=== PATIENT | female | born 1965 | race Caucasian/White ===

== ENCOUNTER 2019-05-07 09:25 | Outpatient (CLI) | payer BC, SELFPAY ==
--- NOTE | ~2019-05-07 | XR_ITS ---
EXAMINATION: XR chest 2V DATE: 05/07/2019 09:40 INDICATION: Chronic pain syndrome TECHNIQUE: PA and lateral views of the chest are obtained. COMPARISON: None available FINDINGS: The lungs are free of acute opacities. There is no pleural effusion or pneumothorax. The ca rdiomediastinal silhouette is normal. There are multiple old left-sided rib fractures. IMPRESSION: 1. No acute cardiopulmonary abnormality. Reviewed, dictated and finalized at location B.
--- NOTE | 2019-05-07 09:45 | ECG_ITS ---
Measurements Intervals [place] Rate: 80 P: 79 WV: 134 QRS: 67 QRSD: 96 T: 43 QT: 351 QTc: 406 Interpretive Statements SINUS RHYTHM WITH SINUS ARRHYTHMIA INCOMPLETE RIGHT BUNDLE BRANCH BLOCK BORDERLINE T WAVE ABNORMALITY- INFERIOR LEADS BORDERLINE ECG Electronically Signed On 05-07-2019 9:54:03 CDT by Emmanuel Stern D.O.
== END 2019-05-07 09:26 | disposition home or self-care (01) ==
LOC: ANHIMG 09:29
PROVIDERS: PCP Internal Medicine; Visit Provider Internal Medicine
DX: F33.2 Major depressive disorder, recurrent severe without psychotic features (principal); G89.4 Chronic pain syndrome
CPT/HCPCS: 71046; 93005

== ENCOUNTER 2019-06-28 12:44 | Outpatient (CLI) | payer BC, SELFPAY ==
--- NOTE | ~2019-06-28 | MR_ITS ---
EXAMINATION: MR cervical spine wo/w con EXAM DATE: 06/28/2019 14:06 INDICATION: Cervical radiculopathy. Neck pain down left arm. TECHNIQUE: Multi-sequential, multiplanar MR images of the cervical spine were obtained without contra st. Axial T2, axial T2 MERGE sequence. Sagittal T1, T2, T2 fat saturation images also obtained. Axi al T1 weighted sequence. Patient was then injected with 13 mL Multihance intravenous contrast and re imaged. Postcontrast axial and sagittal T1-weighted fat saturation sequences were obtained. FINDINGS: There is moderate disc disease from C4-C7. The vertebral bodies are aligned in the AP dime nsion. The spinal cord signal intensity and intrinsic morphology is normal. Cervicomedullary junction is normal in appearance. There are no suspicious marrow signal abnormalities. Paraspinal soft tissue is unremarkable. There are no areas of abnormal enhancement on the post contrast images. Spinal cord is being mildly flattened at the C4-5 and 5-6 levels, but no cord edema, no acute cord co mpression. Level by level evaluation: C2-C3: Disc does not extend beyond the endplate margin. Uncovertebral joint arthropathy: None. Facet joint arthropathy: Mild to moderate right, mild left. Neural foraminal stenosis: No stenosis. Central canal stenosis: No stenosis. C3-C4: There is a mild diffuse disc bulge. Uncovertebral joint arthropathy: Mild bilateral. Facet joint arthropathy: Mild to moderate bilateral. Neural foraminal stenosis: Mild right. Central canal stenosis: Mild. C4-C5: There is a mild to moderate diffuse disc bulge asymmetric to the right Uncovertebral joint arthropathy: Moderate to severe right, mild left. Facet joint arthropathy: Moderate right, mild to moderate left. Neural foraminal stenosis: Moderate right to severe, mild left. Central canal stenosis: Mild to moderate . Central canal measures 5-6 mm in mid sagittal AP diameter . C5-C6: There is a mild to moderate diffuse disc bulge asymmetric to the right Uncovertebral joint arthropathy: Severe right, moderate left. Facet joint arthropathy: Moderate right, mild left. Neural foraminal stenosis: Severe right, mild to moderate left. Central canal stenosis: Mild to moderate . Central canal measures 5-6 mm in mid sagittal AP diameter . C6-C7: There is a mild to moderate diffuse disc bulge. Uncovertebral joint arthropathy: Severe right, moderate left. Facet joint arthropathy: Mild bilateral. Neural foraminal stenosis: Moderate to severe right, mild left. Central canal stenosis: Mild . Central canal measures 6 mm in mid sagittal AP diameter . C7-T1: Disc does not extend beyond the endplate margin. Uncovertebral joint arthropathy: Mild bilateral. Facet joint arthropathy: Mild to moderate bilateral. Neural foraminal stenosis: No stenosis. Central canal stenosis: No stenosis. IMPRESSION: 1. Mid cervical spondylosis causing mild flattening of the spinal cord without cord signal change, n o acute cord compression. 2. Significant right-sided mid cervical neural foraminal stenosis. Reviewed, dictated and finalized at location A. IMPRESSION: 1. Mid cervical spondylosis causing mild flattening of the spinal cord without cord signal change, no acute cord compression. 2. Significant right-sided mid cervical neural foraminal stenosis.
[2019-06-28 13:31] LABS: Estimated Glomerular Filt Rate 58
== END 2019-06-28 12:45 | disposition home or self-care (01) ==
PROVIDERS: PCP Internal Medicine; Visit Provider Nurse Practitioner Adult Health
DX: M47.22 Other spondylosis with radiculopathy, cervical region (principal)
CPT/HCPCS: 36415; 72156; A9577

== ENCOUNTER 2019-07-11 11:24 | Outpatient (CLI) | payer BC, SELFPAY ==
--- NOTE | ~2019-07-11 | MM_ITS ---
EXAMINATION: MM screening [facility] BI w davy HISTORY: Screening mammogram TECHNIQUE: Craniocaudal and mediolateral oblique 3-D tomosynthesis images were obtained and synthetic 2-D images were generated. CAD analysis was submitted and interpreted. COMPARISON: Comparison to multiple prior studies sequentially, with oldest reviewed study dated 04/07. BREAST PARENCHYMAL COMPOSITION: There are scattered areas of fibroglandular density. FINDINGS: There is no evidence of suspicious mass, calcification, or architectural distortion to sugg est malignancy in either breast. There has been no suspicious interval change. IMPRESSION: 1. No mammographic evidence of malignancy. 2. Recommend routine screening mammography in one year. BI-RADS Category 1: Negative Reviewed, dictated and finalized at location A.
== END 2019-07-11 11:25 | disposition home or self-care (01) ==
LOC: ANHIMG 11:28
PROVIDERS: PCP Internal Medicine; Visit Provider Obstetrics & Gynecology
DX: Z12.31 Encounter for screening mammogram for malignant neoplasm of breast (principal)
CPT/HCPCS: 77063; 77067

== ENCOUNTER → 2019-09-04 11:41 | Outpatient (REF) | payer BC, SELFPAY | LOC: ANHLAB 11:41 | PROVIDERS: PCP Internal Medicine; Visit Provider Nurse Practitioner | DX: L57.0 Actinic keratosis (principal) | CPT/HCPCS: 88305 ==

== ENCOUNTER → 2019-10-16 15:42 | Outpatient (CLI) | payer BC, SELFPAY ==
--- NOTE | ~2019-10-16 | MR_ITS ---
EXAMINATION: MR shoulder LT wo con DATE: 10/16/2019 16:30 INDICATION: Left shoulder pain. Strain of muscle, fascia, and tendon. TECHNIQUE: Magnetic resonance imaging (MRI) of the left shoulder was performed without intravenous co ntrast. Sequences included axial PD-weighted FS FSE, coronal oblique PD-weighted FS FSE and T2-weight ed FS FSE, and sagittal oblique T2-weighted FS FSE and T1-weighted FSE. COMPARISON: Left humerus radiographs 06/05/2018 FINDINGS: Coracoacromial arch: The acromion undersurface is curved in morphology (type II). There is mild acromioclavicular joint os teoarthritis. There is mild subacromial/subdeltoid bursitis. Rotator cuff: There is moderate supraspinatus and infraspinatus tendinopathy. Teres minor tendon is normal. There i s mild subscapularis tendinopathy. No tear. There is no asymmetric fatty atrophy of the rotator cuff muscle bellies. Biceps tendon and glenoid labrum: Biceps tendon is in bicipital groove. Intra-articular biceps tendon is normal. The glenoid labrum is normal. Fluid: There is no glenohumeral joint effusion. Bones/cartilage: Glenoid cartilage is normal. Humeral head cartilage is normal. IMPRESSION: 1. Moderate rotator cuff tendinopathy. No tear. 2. Mild acromioclavicular joint osteoarthritis. 3. Mild subacromial/subdeltoid bursitis. Reviewed, dictated and finalized at location A.
== END ==
DX: S46.212A Strain of muscle, fascia and tendon of other parts of biceps, left arm, initial encounter (principal); X58.XXXA Exposure to other specified factors, initial encounter; M19.012 Primary osteoarthritis, left shoulder; M75.52 Bursitis of left shoulder
CPT/HCPCS: 73221

== ENCOUNTER 2020-02-13 13:15 | Emergency (ER) | payer BC, SELFPAY ==
--- NOTE | ~2020-02-13 | CT_ITS ---
EXAMINATION: CT abdomen pelvis wo con DATE: 02/13/2020 15:24 INDICATION: Left flank pain TECHNIQUE: Computed tomography (CT) of the abdomen and pelvis was performed without intravenous contr ast. The dose-length product (DLP) was 257.09 mGy-cm. Automated exposure control and iterative recons truction technique were employed. COMPARISON: None FINDINGS: Minimal dependent atelectasis is present in the lung bases. There is also an area of rounde d atelectasis in the left lower lobe adjacent to an old left rib fracture. The heart size is normal. The liver, spleen, pancreas, gallbladder, and adrenal glands are normal. The kidneys are unremarkable . No stones are identified in the kidneys, ureters, or bladder. There is no hydronephrosis or hydrour eter. No pathologically enlarged abdominal or pelvic lymph nodes are identified. There is no free int raperitoneal gas or evidence of bowel obstruction. There is mild lumbar spondylosis. IMPRESSION: 1. No CT correlate for the patient's symptoms. Reviewed, dictated and finalized at location A. [employer]
[2020-02-13 13:23] VITALS: BP 128/78; PULSE 83; RESP 15; TEMP 36.1; O2SAT 100
--- NOTE | 2020-02-13 13:30 | ED.ABDPAIN ---
HPI - Abdominal Pain General Chief Complaint: Abdominal Pain Stated Complaint: hematuria, flank pain Time Seen by Provider: 02/13/20 13:30 Source: patient Limitations: no limitations History of Present Illness HPI narrative: Patient is a 54-year-old with a history of anxiety, depression, bipolar disorder, who presents for evaluation of left-sided flank pain and hematuria. Patient reports colicky, intermittent flank pain on the left side over the past 4 days. No associated fever, chills, nausea or vomiting. She noticed some blood in her urine today. No dysuria, but reports some frequency. Patient denies any history of nephrolithiasis. No associated chest pain, shortness of breath, cough. No loss of sense of taste or smell. No vesicles, lesions or burning type sensation in the left flank. No blisters or redness. Related Data Home Medications Medication Instructions Recorded Confirmed calcium carbonate 600 mg calcium 600 mg PO DAILY 01/02/19 02/04/20 (1,500 mg) tablet cholecalciferol (vitamin D3) 50 2,000 unit PO DAILY 01/02/19 02/04/20 mcg (2,000 unit) tablet multivitamin 1 tablet PO DAILY 01/02/19 02/04/20 multivitamin with minerals 1 tablet PO DAILY 01/02/19 02/04/20 omega-3 fatty acids 1,000 mg 1,000 mg PO DAILY 01/02/19 02/04/20 capsule alprazolam 0.5 mg tablet 0.5 mg PO TID PRN 08/07/19 02/04/20 pregabalin 100 mg capsule 100 mg PO BID 08/07/19 02/04/20 trazodone 100 mg tablet 200 mg PO .qhs tablet 08/07/19 02/04/20 lamotrigine 100 mg tablet 150 mg PO BID tablet 11/05/19 02/04/20 escitalopram oxalate 10 mg tablet 20 mg PO DAILY tablet 02/04/20 02/04/20 Allergies Allergy/AdvReac Type Severity Reaction Status Date / Time No Known Allergies Allergy Verified 02/04/20 07:51 Review of Systems Review of Systems: Narrative: CONSTITUTIONAL: Denies fever ENT: Denies rhinorrhea, congestion, sore throat, or otalgia. CARDIOVASCULAR: Denies chest pain, palpitations, or edema. RESPIRATORY: Denies cough or dyspnea. GASTROINTESTINAL: Denies abdominal pain, nausea, vomiting, or diarrhea. Reports left flank pain. GENITOURINARY: Denies dysuria or hematuria. SKIN: Denies rash or itching. MUSCULOSKELETAL: Reports left flank pain without other joint pain or myalgias NEUROLOGIC: Denies headache, numbness, or weakness. 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 EYES: PERRLA and EOMI. ENT: Nares clear, no rhinorrhea or epistaxis. Mucous membranes moist. NECK: Supple. CHEST: No respiratory distress, breathing even and non labored HEART: Regular rate, sinus rhythm ABDOMEN:Non distended, no lower abdominal tenderness, nonrigid, nondistended, mild left flank tenderness that is reproducible on exam EXTREMITIES: Normal range of motion. No edema. SKIN: Warm, dry, no rash. No lesions or vesicles. NEURO:No focal deficits. Alert and oriented x3 Cour
[2020-02-13 14:03] LABS: Basophils Percent Auto 0.6 % (0.2-1.2); Eosinophils Absolute Auto 0.1 K/mm3 (0-0.3); Hematocrit 34.7 % (37.0-47.0); Hemoglobin 11.5 g/dL (12.0-15.0); Immature Granulocyte Absolute 0.01 K/mm3 (0.00-0.031); Immature Granulocyte Percent A 0.2 % (0-0.5); Lymphocytes Absolute Auto 1.58 K/mm3 (0.9-3.2); Lymphocytes Percent Auto 25.2 % (18.3-44.2); Mean Corpuscular HGB Conc 33.1 g/dl (32-36); Mean Corpuscular Hemoglobin 28.4 pg (26-34); Mean Corpuscular Volume 85.7 fl (80-100); Mean Platelet Volume 10.3 fl (7.4-10.4); Monocytes Absolute Auto 0.4 K/mm3 (0.1-0.6); Monocytes Percent Auto 6.5 % (2.6-8.5); Neutrophils Absolute Auto 4.2 K/mm3 (1.3-6.7); Neutrophils Percent Auto 66.5 % (45.5-73.1); Platelet Count Result 209 k/mm3 (150-375); Red Blood Count 4.05 M/mm3 (4.2-5.4); Red Cell Distribution Width 13.8 % (11.5-14.5); White Blood Count 6.3 K/mm3 (4.5-10.0)
[2020-02-13] MEDS: ONDANSETRON INJ 4 MG/2 ML VIAL IV PUSH (14:06)
[2020-02-13] MEDS: SODIUM CHLORIDE 0.9% IV 1,000 ML 999 ML IV CONT (14:06)
[2020-02-13] MEDS: MORPHINE SULFATE (*CRX) 2 MG/ML INJ IV PUSH (14:06)
[2020-02-13 14:09] LABS: Add Urine Microscopic? YES; Appearance Urine Clear (Clear); Bilirubin Urine Negative (Negative); Blood Urine Negative (Negative); Color Urine Straw (Yellow); Glucose Urine UA Negative (Negative); Ketones Urine Negative (Negative); Leukocyte Esterase Ur 2+ LEU/UL (Negative); Mucus Urine Rare /lpf; Nitrate Urine Negative (Negative); Protein Urine 2+ mg/dL (Negative); Specific Grav Ur 1.013 (1.001-1.035); Squamous Epithelial Cell Urine Many /hpf (Few); Urobilinogen Urine Negative mg/dL (<2.0); WBC Urine 16-20 /hpf
[2020-02-13 14:17] LABS: Alanine Aminotransferase 17 U/L (4-35); Albumin Level 4.5 g/dL (3.5-5.1); Alkaline Phosphatase 44 U/L (38-126); Anion Gap 10 mmol/L (8-16); Aspartate Amino Transferase 33 U/L (14-36); Bilirubin,Total 0.4 mg/dL (0.2-1.3); Blood Urea Nitrogen 13 mg/dL (7-17); Carbon Dioxide 26 mmol/L (22-30); Chloride 100 mmol/L (98-107); Estimated CRCL calculation 53 ml/min; Estimated Glomerular Filt Rate > 60; Glucose 85 mg/dL (65-105); Lipase 60 U/L (23-300); Potassium 4.5 mmol/L (3.4-5.0); Sodium 136 mmol/L (137-145)
[2020-02-13] MEDS: MORPHINE SULFATE (*CRX) 4 MG/ML INJ IV PUSH (14:54)
[2020-02-13 14:56] VITALS: BP 126/53; PULSE 78; RESP 18; O2SAT 99
[2020-02-13 16:12] VITALS: BP 129/73; PULSE 79; RESP 19; O2SAT 97
== END 2020-02-13 16:13 | disposition home or self-care (01) ==
PROVIDERS: Emergency Provider Emergency Medicine; PCP Internal Medicine
DX: N12 Tubulo-interstitial nephritis, not specified as acute or chronic (principal); N30.00 Acute cystitis without hematuria
CPT/HCPCS: 36415; 74176; 80053; 81001; 83690; 85025; 87086; 96361; 96365; 96367; 96375; 96376; 99284; J0131; J0696; J2270; J2405; J7030

== ENCOUNTER 2020-07-11 07:39 | Outpatient (CLI) | payer BC, SELFPAY ==
--- NOTE | ~2020-07-11 | MM_ITS ---
EXAMINATION: MM screening [facility] BI w davy HISTORY: Screening mammogram TECHNIQUE: Craniocaudal and mediolateral oblique 3-D tomosynthesis images were obtained and synthetic 2-D images were generated. CAD analysis was submitted and interpreted. COMPARISON: 07/11/2019 bilateral digital screening mammogram 06/19/2018 bilateral diagnostic digital mammogram and Limited bilateral breast ultrasound , 05/31/2017 bilateral digital screening mammogram examinations BREAST PARENCHYMAL COMPOSITION: There are scattered areas of fibroglandular density. FINDINGS: There is a biopsy marker on the left; history of prior benign left breast biopsy. There is no evidence of suspicious mass, calcification, or architectural distortion to suggest malignancy in e ither breast. There has been no suspicious interval change. IMPRESSION: 1. No mammographic evidence of malignancy. 2. Recommend routine screening mammography in one year. BI-RADS Category 1: Negative Reviewed, dictated and finalized at location A.
== END 2020-07-11 07:40 | disposition home or self-care (01) ==
LOC: ANHIMG 07:41
PROVIDERS: PCP Internal Medicine; Visit Provider Obstetrics & Gynecology
DX: Z12.31 Encounter for screening mammogram for malignant neoplasm of breast (principal)
CPT/HCPCS: 77063; 77067

== ENCOUNTER → 2021-02-21 01:20 | Outpatient (CLI) | payer BC, SELFPAY ==
[2021-02-21 22:40] LABS: SARS-CoV-2 RNA PCR Negative
== END ==
PROVIDERS: PCP Internal Medicine; Visit Provider Internal Medicine Gastroenterology
DX: Z01.812 Encounter for preprocedural laboratory examination (principal); Z20.822 Contact with and (suspected) exposure to COVID-19
CPT/HCPCS: C9803; U0003; U0005

== ENCOUNTER 2021-02-25 01:16 | Day surgery (SDC) | payer BC, SELFPAY ==
[2021-02-10 12:10] VITALS: BMI 23.4
--- NOTE | 2021-02-24 13:43 | PM.HPGS ---
History of Present Illness History of Present Illness Consent: Risks, benefits, and alternatives have been discussed and questions answered. Patient agrees to proceed with procedure. Chief complaint: dysphagia Narrative: Clementine Escobar is a 55 year old female Referred for evaluation of dysphagia. Noteworthy is the fact she has had cervical spine fusion a couple of months ago prior to this dysphagia. Food and pills will seem to get caught in the back of her throat and unable the pass into her esophagus. She will spit them out. She is living basically on pudding consistency foods at this time. Several years ago she recalls that she had an EGD and dilatation for similar symptoms Review of Systems Review of Systems: All systems reviewed & are unremarkable except as noted in HPI and below PMFSH Past Medical History Medical History Abnormal fasting glucose Actinic keratosis Attention-deficit hyperactivity disorder, unspecified type BMI 22.0-22.9, adult BMI 23.0-23.9, adult Breast cancer screening Chronic pain after traumatic injury Colon cancer screening Dysphagia Encounter for preventive health examination Encounter to establish care Hearing loss History of retained foreign body fully removed History of tobacco use Hyperlipidemia Hypovitaminosis D Insomnia [employer]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 Mild episode of recurrent major depressive disorder Other skin changes Personal history of nicotine dependence Surgical History Surgical History History of section, classical History of hysterectomy S/P spinal surgery Family History Family History Father Diabetes mellitus Cerebrovascular accident Mother Diabetes mellitus Family history of mental disorder Depression Hypertension Sibling Depression Hypertension Cerebrovascular accident Social History Social History Years smoked: 20 Smoking status: Former smoker Second hand tobacco smoke exposure: Yes Alcohol intake: current Alcohol use details: on occasion Substance use: current Substance use type: marijuana Other substance usage details: medical marijuana card Living arrangements: with family Meds Home Medications and Allergies Home Medications Medication Instructions Recorded Confirmed Type cholecalciferol (vitamin D3) 50 2,000 unit PO DAILY 01/02/19 02/10/21 History mcg (2,000 unit) tablet multivitamin 1 tablet PO DAILY 01/02/19 02/10/21 History multivitamin with minerals 1 tablet PO DAILY 01/02/19 02/10/21 History trazodone 100 mg tablet 200 mg PO .qhs tablet 08/07/19 02/10/21 History lamotrigine 100 mg tablet 150 mg PO BID tablet 11/05/19 02/10/21 History escitalopram oxalate 10 mg tablet 20 mg PO DAILY tablet 08/13/20 02/10/21 History calcium carbonate 500 mg calcium 500 mg PO DAILY 09/02/20 02/10/21 History (1,250 mg) chewable tablet alprazolam 0.5 mg tablet 0.5 mg PO QHS PRN tablet 10/03/20 02/10/21 History aripiprazole 15 mg tablet 15 mg PO DAILY 10/03/20 02/10/21 History dextroamphetamine-amphetamine ER 30 mg PO DAILY 10/03/20 02/10/21 History 30 mg 24hr capsule,extend release omega-3 fatty acids 1,000 mg 2,000 mg PO BID cap 10/03/20 02/10/21 History capsule rosuvastatin 10 mg tablet 10 mg PO DAILY #90 tablet 10/03/20 02/10/21 Rx lidocaine 5 % topical patch 1 patch TOPICAL DAILY #15 ea 01/29/21 02/10/21 Rx baclofen 5 mg tablet See Rx Instructions PO TID #40 02/04/21 02/10/21 Rx tablet Allergies Allergy/AdvReac Type Severity Reaction Status Date / Time No Known Allergies Allergy Verified 02/25/21 07:51 Exam Const: General: alert Orientation/consciousness: patient oriented x3 Neck: Neck: normal visual inspection, full ROM and trachea midline Thyroid: no masses
[2021-02-25 07:51] VITALS: BP 126/73; PULSE 94; RESP 18; TEMP 36.2; O2SAT 98
[2021-02-25] MEDS: LACTATED RINGERS 1,000 ML 150 ML IV CONT (08:05)
--- NOTE | 2021-02-25 08:29 | WPDANESEPPF ---
Anes - Initial Pre Proc Eval Procedure: Operation Date: 02/25/21 09:00 Proposed Procedures p Esophagogastroduodenoscopy - Quan Rodrigues MD Date/Time: 02/25/21 08:29 Surgeon: Quan Rodrigues MD Pre Op Diagnosis: dysphagia Patient Data Age: 55 Gender: F Height: 1.63 m Weight: 58.7 kg Last Vital Signs Temp 97.2 F L 02/25/21 07:51 Pulse 94 02/25/21 07:51 Resp 18 02/25/21 07:51 BP 126/73 02/25/21 07:51 Pulse Ox 98 02/25/21 07:51 Allergies Allergy/AdvReac Type Severity Reaction Status Date / Time No Known Allergies Allergy Verified 02/25/21 07:51 Home Medications Medication Instructions Recorded Confirmed Type cholecalciferol (vitamin D3) 50 2,000 unit PO DAILY 01/02/19 02/10/21 History mcg (2,000 unit) tablet multivitamin 1 tablet PO DAILY 01/02/19 02/10/21 History multivitamin with minerals 1 tablet PO DAILY 01/02/19 02/10/21 History trazodone 100 mg tablet 200 mg PO .qhs tablet 08/07/19 02/10/21 History lamotrigine 100 mg tablet 150 mg PO BID tablet 11/05/19 02/10/21 History escitalopram oxalate 10 mg tablet 20 mg PO DAILY tablet 08/13/20 02/10/21 History calcium carbonate 500 mg calcium 500 mg PO DAILY 09/02/20 02/10/21 History (1,250 mg) chewable tablet alprazolam 0.5 mg tablet 0.5 mg PO QHS PRN tablet 10/03/20 02/10/21 History aripiprazole 15 mg tablet 15 mg PO DAILY 10/03/20 02/10/21 History dextroamphetamine-amphetamine ER 30 mg PO DAILY 10/03/20 02/10/21 History 30 mg 24hr capsule,extend release omega-3 fatty acids 1,000 mg 2,000 mg PO BID cap 10/03/20 02/10/21 History capsule rosuvastatin 10 mg tablet 10 mg PO DAILY #90 tablet 10/03/20 02/10/21 Rx lidocaine 5 % topical patch 1 patch TOPICAL DAILY #15 ea 01/29/21 02/10/21 Rx baclofen 5 mg tablet See Rx Instructions PO TID #40 02/04/21 02/10/21 Rx tablet Patient hx anesthesia problems: none Family hx anesthesia problems: none Results Review: All pre-operative results and documents have been reviewed as part of the pre-operative evaluation. 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 Mild episode of recurrent major depressive disorder Other skin changes Personal history of nicotine dependence Surgical History Surgical History History of section, classical History of hysterectomy S/P spinal surgery Family History Family History Father Diabetes mellitus Cerebrovascular accident Mother Diabetes mellitus Family history of mental disorder Depression Hypertension Sibling Depression Hypertension Cerebrovascular accident Social History Social History Years smoked: 20 Smoking status: Former smoker Second hand tobacco smoke exposure: Yes Alcohol intake: current Alcohol use details: on occasion Substance use: current Substance use type: marijuana Other substance usage details: medical marijuana card Living arrangements: with family Daren - Carey Final PreProcedure Day of Procedure 02/25/21 08:29 Patient weight: normal Heart: regular rate and rhythm Lungs: clear to auscultation Airway: Mallampati scale class II Neurological: alert and oriented Last oral intake: >/= 8 hours ASA classification: II Emergent: no Anesthetic plan: proceed Anesthesia type and monitoring:
[2021-02-25 09:01] VITALS: BP 113/73; PULSE 68; RESP 13; O2SAT 99
[2021-02-25 09:11] VITALS: BP 162/92; PULSE 80; RESP 15; O2SAT 100
[2021-02-25 09:21] VITALS: BP 160/82; PULSE 72; RESP 15; O2SAT 100
== END 2021-02-25 09:31 | disposition home or self-care (01) ==
PROVIDERS: PCP Internal Medicine; Visit Provider Internal Medicine Gastroenterology
PROC: 0DJ08ZZ Inspection of Upper Intestinal Tract, Via Natural or Artificial Opening Endoscopic (ICD-10-PCS; CPT 43235; principal; 2021-02-25 09:00)
DX: R13.10 Dysphagia, unspecified (principal); K21.9 Gastro-esophageal reflux disease without esophagitis; K29.70 Gastritis, unspecified, without bleeding; F90.9 Attention-deficit hyperactivity disorder, unspecified type; E78.5 Hyperlipidemia, unspecified; E55.9 Vitamin D deficiency, unspecified; F33.0 Major depressive disorder, recurrent, mild; Z87.891 Personal history of nicotine dependence; F12.90 Cannabis use, unspecified, uncomplicated
CPT/HCPCS: 43239; 43450; 87081; 88305; C9803; J2704; J7120; U0003; U0005

== ENCOUNTER 2021-03-04 07:53 | Outpatient (CLI) | payer BC, SELFPAY ==
--- NOTE | ~2021-03-04 | XR_ITS ---
EXAMINATION: XR barium swallow modified DATE: 03/04/2021 08:25 INDICATION: Dysphagia. TECHNIQUE: The patient was given barium-containing material of multiple consistencies to swallow by t brad speech pathologist while I performed fluoroscopy. Dose-area product was 0.879 Gy-cm2. 2.5 minutes fluoroscopy time FINDINGS: Oral Stage: Within functional limits Pharyngeal Phase: Reduced lung base retraction, reduced pharyngeal squeeze, vallecular and piriform sinus residue No laryngeal penetration or aspiration Cervical/Esophageal Stage: Within functional limits IMPRESSION: Modified esophagram findings as above. Please refer to the speech [facility] report [facility] Reviewed, dictated and finalized at Location A. Reviewed, dictated and finalized at location A. ER [facility]ASH [employer]IN IMPRESSION: Modified esophagram findings as above. Please refer to the speech t herapy report for specific recommendations.
--- NOTE | 2021-03-06 15:44 | STOPEVAL ---
MODIFIED BARIUM SWALLOW: Thank you for referring Clementine Escobar to [facility] [place].? Attending Provider: Quan Rodrigues MD Outpatient Past Medical History Past Medical History Source of Past Medical History Patient Gastrointestinal History Hx Polyps Yes Genitourinary History Hx Genitourinary Disorders No Significant History Musculoskeletal History Hx Orthopedic Surgery Yes: neck fusion; hardware C 4 -7 Reproductive History Hx Post Menopausal Yes Psychosocial History Hx Anxiety Yes Hx Depression Yes Modified Barium Swallow Evaluation Recent Swallowing History Reports Dysphagia Yes Onset of Dysphagia January 02, 2021 History of Dysphagia No History of Related Medical Diagnosis Anterior Cervical Spinal Fusion Other Related History Cervical Hardware was present Other Factors Impacting Dysphagia Head/Neck Surgery History of Pneumonia No Reported Difficult Consistencies Solids Intake Method Prior to Swallow Oral Evaluation Diet Prior to Swallow Evaluation Regular, Level 7 Liquid Consistency Prior to Swallow Thin (0) Evaluation Consistency Thin Uncontrolled 1 Other Amount cup and straw with chin tuck posture Oral Preparatory Symptoms None Oral Phase Symptoms None Pharyngeal Phase Symptoms Reduced Laryngeal Elevation, Reduced Lingual Pressure, Residue in [place],Residue/ Pyriform Sinus Severity of Vallecular Residue Mild - 5-25 % Epiglottic Ligament Visable Severity of Pyriform Sinus Residue Mild - 5-25 % Up Wall to Quarter Full 8 Point Laryngeal Penetration-Aspiration Material Does Not Enter Airway Scale Pharyngeal Phase Comments with use of the chin tuck and repeated dry swallows (pt performed without cues), the residual was cleared. Cervical/Esophageal Symptoms Within Functional Limits Solid Consistency Other Amount with chin tuck Method of Presentation Spoon Oral Preparatory Symptoms None Oral Phase Symptoms None Pharyngeal Phase Symptoms Reduced Laryngeal Elevation, Reduced Lingual Pressure, Residue in [place],Residue/ Pyriform Sinus Severity of Vallecular Residue Mild - 5-25 % Epiglottic Ligament Visable Severity of Pyriform Sinus Residue Mild - 5-25 % Up Wall to Quarter Full 8 Point Laryngeal Penet
== END 2021-03-04 07:54 | disposition home or self-care (01) ==
LOC: ANHIMG 07:55
PROVIDERS: PCP Internal Medicine; Visit Provider Internal Medicine Gastroenterology
DX: R13.10 Dysphagia, unspecified (principal)
CPT/HCPCS: 92611

== ENCOUNTER 2021-06-11 14:38 | Outpatient (CLI) | payer BC, SELFPAY ==
--- NOTE | ~2021-06-11 | MR_ITS ---
EXAMINATION: MR cervical spine wo/w con DATE: 06/11/2021 15:27 INDICATION: Cervical radiculopathy. TECHNIQUE: Magnetic resonance imaging (MRI) of the cervical spine was performed without and with 12 m L MultiHance intravenous contrast. Sequences included sagittal and axial T2-weighted FSE, sagittal T2 -weighted FS FSE, and sagittal and axial T1-weighted FSE. Postcontrast sequences included sagittal an d axial T1-weighted FS FSE. COMPARISON: Cervical spine MRI 06/28/2019 FINDINGS: There is mild kyphosis of upper cervical spine. There are changes of anterior fusion proced ure from C4 to C7 with anterior plate and screws. There is mildly decreased disc height at C3-C4 and C7-T1. The spinal cord signal intensity is normal. The following disc levels are specifically discuss ed: C2-C3: The disc does not extend beyond the endplate margin. There is no uncovertebral joint osteoarth ritis. There is moderate right and mild left facet joint osteoarthritis. There is no neural foraminal stenosis. There is no central canal stenosis. C3-C4: There is a central ridge effusion. There is no uncovertebral joint osteoarthritis. There is mi ld bilateral facet joint osteoarthritis. There is no neural foraminal stenosis. There is mild central canal stenosis. C4-C5: There is mild bilateral uncovertebral joint hypertrophy. There is mild right facet joint osteo arthritis. There is mild right neural foraminal stenosis. There is no central canal stenosis. C5-C6: There is no uncovertebral joint hypertrophy. There is no facet joint osteoarthritis. There is no neural foraminal stenosis. There is no central canal stenosis. C6-C7: There is mild bilateral uncovertebral joint hypertrophy. There is mild right and moderate left facet joint osteoarthritis. There is no neural foraminal stenosis. There is no central canal stenosi s. C7-T1: The disc does not extend beyond the endplate margin. There is no uncovertebral joint osteoarth ritis. There is severe right and mild left facet joint osteoarthritis. There is mild right neural for aminal stenosis. There is no central canal stenosis. IMPRESSION: 1. Mild cervical spondylosis. 2. Anterior fusion procedure from C4 to C7, new from 06/28/2019. Reviewed, dictated and finalized at location A.
[2021-06-11 15:03] LABS: Estimated Glomerular Filt Rate 57
== END 2021-06-11 14:39 | disposition home or self-care (01) ==
PROVIDERS: PCP Internal Medicine; Visit Provider Neurological Surgery
DX: M43.02 Spondylolysis, cervical region (principal); Z98.1 Arthrodesis status
CPT/HCPCS: 72156; A9577

== ENCOUNTER 2021-06-18 14:30 | Outpatient (CLI) | payer BC, SELFPAY ==
--- NOTE | ~2021-06-18 | XR_ITS ---
EXAMINATION: XR shoulder LT min 2V DATE: 06/18/2021 14:48 INDICATION: Left shoulder pain TECHNIQUE: AP internally and externally rotated, AP oblique externally rotated and axillary views of the left shoulder were obtained. COMPARISON: Left shoulder MRI dated 10/16/2019 chest radiograph dated 05/07/2019 FINDINGS: Normal alignment. No acute fracture. Multiple old healed left rib fractures. Glenohumeral joint is n ormal. Acromioclavicular joint is normal. C4-C7 anterior spinal fusion with plate and screw fixation. Soft tissues are unremarkable. Visual is portions of the left lung are clear. IMPRESSION: Multiple old left rib fractures. No osseous abnormality at the left shoulder. Reviewed, dictated and finalized at location A.
== END 2021-06-18 14:31 | disposition home or self-care (01) ==
LOC: ANHIMG 14:34
PROVIDERS: PCP Internal Medicine; Visit Provider Internal Medicine
DX: M25.512 Pain in left shoulder (principal)
CPT/HCPCS: 73030

== ENCOUNTER 2021-07-29 12:24 | Outpatient (CLI) | payer BC, SELFPAY ==
--- NOTE | ~2021-07-29 | MM_ITS ---
EXAMINATION: MM screening emani BI w davy HISTORY: Screening TECHNIQUE: Craniocaudal and mediolateral oblique 3-D tomosynthesis images were obtained and synthetic 2-D images were generated. CAD analysis was submitted and interpreted. COMPARISON: Comparison to multiple prior studies sequentially, with oldest reviewed study dated 05/2016. BREAST PARENCHYMAL COMPOSITION: There are scattered areas of fibroglandular density. FINDINGS: There is no evidence of suspicious mass, calcification, or architectural distortion to sugg est malignancy in either breast. There has been no suspicious interval change. IMPRESSION: 1. No mammographic evidence of malignancy. 2. Recommend routine screening mammography in one year. BI-RADS Category 1: Negative Reviewed, dictated and finalized at location D.
== END 2021-07-29 12:25 | disposition home or self-care (01) ==
LOC: ANHIMG 12:27
PROVIDERS: PCP Internal Medicine; Visit Provider Obstetrics & Gynecology
DX: Z12.31 Encounter for screening mammogram for malignant neoplasm of breast (principal)
CPT/HCPCS: 77063; 77067

== ENCOUNTER 2021-07-30 09:37 | Outpatient (CLI) | payer BC, SELFPAY ==
--- NOTE | 2021-07-30 09:40 | EST_ITS ---
Patient Info Name: Clementine Escobar Age: 55 years : 1965 Gender: Female Ht: 64 in Wt: 135 lbs BSA: 1.67 m2 HR: 72 bpm BP: 148 / 71 mmHg Heart Rhythm: Sinus Rhythm Exam Date: 07/30/2021 9:52 AM Exam Location: [facility] Patient Status: Outpatient Admit Date: 07/30/2021 Staff Ordering Physician: Keanu Ma MD Warehouseman: Gill Son RDCS Attending Provider: Keanu Ma MD Exercise Technologist: Luz Blue RDCS Exercise Physician: Emmanuel Stern DO Exam Type: CA stress echo Study Info Indications R06.00 - Dyspnea, unspecified Treadmill exercise stress echocardiogram is performed. Summary 1. 1. Negative Beto exercise stress test for ischemic ST changes by ECG criteria. 2. 2. Reduced functional capacity, achieving 7 METs of workload. 3. 3. Baseline hypertension with hypertensive response to exercise. 4. 4. Appropriate HR response to exercise. 5. 5. Appropriate HR recovery at 1 minute post exercise. 6. 6. Negative stress echocardiogram for ischemia by wall motion analysis. 7. 7. Patient informed of the above results. Stress Echo Findings Left Ventricle Appropriate increase in LV endocardial thickening with systole. Appropriate augmentation of contractility with systole. No wall motion abnormality. Left Ventricle Normal LV systolic function, no wall motion abnormality. Protocol: Beto Stress ECG Details Stage: REST Duration (min): 6 min : 10 sec Speed (mph): 0.0 Grade (%): 0 HR (bpm): 73 SBP (mmHg): 148 DBP (mmHg): 71 METS: --- Stage: REST Duration (min): 22 min : 59 sec Speed (mph): 0.0 Grade (%): 0 HR (bpm): 77 SBP (mmHg): 148 DBP (mmHg): 71 METS: --- Stage: STAGE 1 Duration (min): 1 min : 0 sec Speed (mph): 1.7 Grade (%): 10 HR (bpm): 108 SBP (mmHg): 148 DBP (mmHg): 71 METS: --- Stage: STAGE 1 Duration (min): 2 min : 0 sec Speed (mph): 1.7 Grade (%): 10 HR (bpm): 123 SBP (mmHg): 148 DBP (mmHg): 71 METS: --- Stage: STAGE 1 Duration (min): 3 min : 0 sec Speed (mph): 1.7 Grade (%): 10 HR (bpm): 130 SBP (mmHg): 216 DBP (mmHg): 81 METS: --- Stage: STAGE 2 Duration (min): 1 min : 0 sec Speed (mph): 2.5 Grade (%): 12 HR (bpm): 138 SBP (mmHg): 216 DBP (mmHg): 81 METS: --- Stage: STAGE 2 Duration (min): 2 min : 0 sec Speed (mph): 2.5 Grade (%): 12 HR (bpm): 142 SBP (mmHg): 220 DBP (mmHg): 72 METS: --- Stage: STAGE 2 Duration (min): 2 min : 1 sec Speed (mph): 0.0 Grade (%): 0 HR (bpm): 142 SBP (mmHg): 220 DBP (mmHg): 72 METS: --- Stage: RECOVERY Duration (min): 0 min : 58 sec Speed (mph): 0.0 Grade (%): 0 HR (bpm): 115 SBP (mmHg): 209 DBP (mmHg): 70 METS: --- Stage: RECOVERY Duration (min): 1 min : 58 sec Speed (mph): 0.0 Grade (%): 0 HR (bpm): 79 SBP (mmHg): 209 DBP (mmHg): 70 METS: ---
== END 2021-07-30 09:38 | disposition home or self-care (01) ==
LOC: ANHCARD 09:38
PROVIDERS: PCP Internal Medicine; Visit Provider Internal Medicine
DX: R06.00 Dyspnea, unspecified (principal)
CPT/HCPCS: 93351

== ENCOUNTER 2021-10-09 12:45 | Emergency (ER) | payer MEDICARE, SELFPAY ==
--- NOTE | ~2021-10-09 | CT_ITS ---
EXAMINATION: CT abdomen pelvis w con DATE: 10/09/2021 14:39 INDICATION: Generalized abdominal pain TECHNIQUE: Computed tomography (CT) of the abdomen and pelvis was performed with 100 mL Omnipaque-350 intravenous contrast. Automated exposure control and iterative reconstruction technique were employe d. The dose-length product was 222.73 mGy-cm. COMPARISON: 02/13/2020 FINDINGS: Unchanged band of discoid atelectasis/scarring in the left lower lobe. Heart size is normal. No peric ardial or pleural effusion. Three subcentimeter low-attenuation hepatic cysts. Gallbladder, spleen, p ancreas, bilateral adrenal glands and kidneys are normal. Bowels including the appendix are normal. B ladder and left adnexa are normal. The uterus and right ovary are not identified and have likely been surgically resected. No free intraperitoneal gas or fluid. No pathologically enlarged abdominal or p elvic lymphadenopathy. Mild lumbar levocurvature with mild to moderate spondylosis. IMPRESSION: 1. No acute intra-abdominal/pelvic process. Reviewed, dictated and finalized at location A.
[2021-10-09 13:09] VITALS: BP 121/74; PULSE 87; RESP 18; TEMP 36.4; O2SAT 100
[2021-10-09 13:37] LABS: Basophils Percent Auto 0.5 % (0.2-1.2); Eosinophils Percent Auto 0.5 % (0-4.4); Hemoglobin 12.3 g/dL (12.0-15.0); Lymphocytes Absolute Auto 0.63 K/mm3 (0.9-3.2); Lymphocytes Percent Auto 34.1 % (18.3-44.2); Mean Corpuscular HGB Conc 32.4 g/dl (32-36); Mean Corpuscular Hemoglobin 28.5 pg (26-34); Mean Corpuscular Volume 88.2 fl (80-100); Mean Platelet Volume 10.3 fl (7.4-10.4); Monocytes Absolute Auto 0.3 K/mm3 (0.1-0.6); Monocytes Percent Auto 15.1 % (2.6-8.5); Neutrophils Absolute Auto 0.9 K/mm3 (1.3-6.7); Neutrophils Percent Auto 49.8 % (45.5-73.1); Platelet Count Result 167 k/mm3 (150-375); Red Blood Count 4.31 M/mm3 (4.2-5.4); Red Cell Distribution Width 12.9 % (11.5-14.5)
[2021-10-09 13:39] LABS: Appearance Urine Clear (Clear); Bilirubin Urine Negative (Negative); Blood Urine Negative (Negative); Color Urine Yellow (Yellow); Glucose Urine UA Negative (Negative); Ketones Urine Negative (Negative); Leukocyte Esterase Ur Negative LEU/UL (Negative); Nitrate Urine Negative (Negative); Protein Urine 2+ mg/dL (Negative); Specific Grav Ur 1.015 (1.001-1.035); Urobilinogen Urine 0.2 mg/dL (<2.0); pH Urine 8.5 (5.0-9.0)
[2021-10-09 13:49] LABS: White Blood Count 1.9 K/mm3 (4.5-10.0)
[2021-10-09 13:53] LABS: Mucus Urine Rare /lpf; Squamous Epithelial Cell Urine Rare /hpf (Few); WBC Urine 0-3 /hpf
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
[2021-10-09 13:59] LABS: Add Urine Microscopic? YES
[2021-10-09 14:16] VITALS: BP 141/74; RESP 21; O2SAT 92
[2021-10-09] MEDS: SODIUM CHLORIDE 0.9% IV 1,000 ML 999 ML IV CONT (14:17)
[2021-10-09] MEDS: ONDANSETRON INJ 4 MG/2 ML VIAL IV PUSH (14:17)
[2021-10-09] MEDS: HYDROmorphone HCL INJ (*CRX) 1 MG/ML SYR 0.5 MG IV PUSH (14:17)
[2021-10-09 14:20] LABS: Alanine Aminotransferase 32 U/L (6-35); Albumin Level 4.6 g/dL (3.5-5.1); Alkaline Phosphatase 52 U/L (38-126); Anion Gap 8 mmol/L (8-16); Aspartate Amino Transferase 46 U/L (14-36); Bilirubin,Total 0.3 mg/dL (0.2-1.3); Blood Urea Nitrogen 7 mg/dL (7-17); Calcium 9.9 mg/dL (8.4-10.2); Carbon Dioxide 33 mmol/L (22-30); Chloride 95 mmol/L (98-107); Estimated CRCL calculation 49 ml/min; Estimated Glomerular Filt Rate > 60; Glucose 106 mg/dL (65-110); Lipase 78 U/L (23-300); Potassium 3.9 mmol/L (3.4-5.0); Sodium 136 mmol/L (137-145)
[2021-10-09 14:24] LABS: Lactic Acid Reflex 1.3 mmol/L (0.7-2.0)
[2021-10-09 15:30] VITALS: BP 159/84; PULSE 71; RESP 16; O2SAT 100
== END 2021-10-09 15:30 | disposition home or self-care (01) ==
PROVIDERS: Emergency Medicine; Emergency Provider Emergency Medicine; PCP Internal Medicine
DX: R10.30 Lower abdominal pain, unspecified (principal); R19.7 Diarrhea, unspecified; E78.5 Hyperlipidemia, unspecified; E55.9 Vitamin D deficiency, unspecified; F33.9 Major depressive disorder, recurrent, unspecified; Z86.16 Personal history of COVID-19; F41.9 Anxiety disorder, unspecified; Z90.710 Acquired absence of both cervix and uterus; Z90.721 Acquired absence of ovaries, unilateral; Z87.891 Personal history of nicotine dependence
CPT/HCPCS: 36415; 74177; 80053; 81001; 83605; 83690; 85025; 96361; 96374; 96375; 99284; J1170; J2405; J7030; Q9967

== ENCOUNTER 2021-12-23 13:02 | Outpatient (CLI) | payer MEDICARE, SELFPAY ==
--- NOTE | ~2021-12-23 | XR_ITS ---
EXAMINATION: XR barium swallow DATE: 12/23/2021 13:39 INDICATION: Dysphagia, unspecified. TECHNIQUE: The patient drank thick barium and thin barium. Fluoroscopy of the hypopharynx and esophag us was performed. Fluoroscopy exposure time was 0.4 minutes. The total number of images was 508. The dose-area product was 0.343 Gy-cm^2. COMPARISON: None. FINDINGS: There is no mass or stricture of the esophagus. Esophageal motility is normal. There is no hiatal hernia. There are changes of anterior fusion procedure in cervical spine. IMPRESSION: 1. Normal esophagram. Reviewed, dictated and finalized at location A. [employer] IMPRESSION: 1. Normal esophagram.
== END 2021-12-23 13:03 | disposition home or self-care (01) ==
LOC: ANHIMG 13:04
PROVIDERS: PCP Internal Medicine; Visit Provider Internal Medicine
DX: R13.10 Dysphagia, unspecified (principal)
CPT/HCPCS: 74220

== ENCOUNTER 2022-03-31 08:09 | Outpatient (CLI) | payer MEDICARE, SELFPAY ==
[2022-03-31 08:45] LABS: Anion Gap 5 mmol/L (8-16); Blood Urea Nitrogen 11 mg/dL (7-17); Calcium 9.8 mg/dL (8.4-10.2); Carbon Dioxide 31 mmol/L (22-30); Chloride 99 mmol/L (98-107); Estimated Glomerular Filt Rate 51; Glucose 110 mg/dL (65-110); Potassium 4.4 mmol/L (3.4-5.0); Sodium 135 mmol/L (137-145)
[2022-03-31 09:06] LABS: Free T4 Free Thyroxine 1.24 ng/mL (0.78-2.19)
[2022-04-04 04:02] LABS: Triiodothyronine T3 Free 3.2 pg/mL (2.3-4.2)
[2022-04-08 11:23] LABS: Testosterone Total 8 ng/dL (2-45)
== END 2022-03-31 08:10 | disposition home or self-care (01) ==
LOC: ANHLAB 08:10
PROVIDERS: PCP Internal Medicine; Visit Provider Internal Medicine
DX: L65.9 Nonscarring hair loss, unspecified (principal); Z13.29 Encounter for screening for other suspected endocrine disorder; Z79.899 Other long term (current) drug therapy
CPT/HCPCS: 36415; 80048; 84403; 84439; 84443; 84481

== ENCOUNTER 2022-07-27 11:32 | Outpatient (CLI) | payer MEDICARE, SELFPAY ==
--- NOTE | ~2022-07-27 | XR_ITS ---
EXAM: XR knee RT 3V DATE: 07/27/2022 12:02 HISTORY: M25.569 - Pain in unspecified knee, SWELLING ON KNEE, NO INJ . COMPARISON: None available. FINDINGS: Decreased mineralization. No fracture or dislocation. No lytic or blastic lesion. Mild med ial and moderate lateral joint space narrowing. Mild tricompartmental osteophytosis. No erosion or pe riosteal change. Soft tissues within normal limits. Moderate volume joint fluid. IMPRESSION: Tricompartmental right knee osteoarthritis, moderate in the medial compartment. Moderate knee joint effusion. Reviewed, dictated and finalized at location K.
== END 2022-07-27 11:33 | disposition home or self-care (01) ==
LOC: ANHIMG 11:34
PROVIDERS: PCP Internal Medicine; Visit Provider Internal Medicine
DX: M17.11 Unilateral primary osteoarthritis, right knee (principal); M25.461 Effusion, right knee
CPT/HCPCS: 73562

== ENCOUNTER 2022-09-06 09:59 | Day surgery (SDC) | payer MEDICARE, SELFPAY ==
[2022-08-20 11:24] VITALS: BMI 20.8
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
[2022-09-06 10:22] VITALS: BMI 19.5
[2022-09-06 10:23] VITALS: BP 162/90; PULSE 94; RESP 15; TEMP 36.9; O2SAT 98
[2022-09-06] MEDS: LACTATED RINGERS 1,000 ML 150 ML IV CONT (10:29)
[2022-09-06 11:44] VITALS: BP 119/70; PULSE 69; RESP 16; O2SAT 100
[2022-09-06 11:45] VITALS: BP 125/73; PULSE 66; RESP 16; O2SAT 100
[2022-09-06 11:55] VITALS: BP 127/76; PULSE 67; RESP 18; O2SAT 100
--- NOTE | 2022-09-06 12:03 | WPDANESPN ---
Anes - Prog Note Post-Op Date/Time: 09/06/22 12:03 Cardiovascular status: normal Respiratory status: normal Airway patency: baseline Mental status: baseline Post-Op hydration status: normal Vital Signs: Last Vital Signs Temp 36.9 C 09/06/22 10:23 Pulse 67 09/06/22 11:55 Resp 18 09/06/22 11:55 BP 127/76 09/06/22 11:55 Pulse Ox 100 09/06/22 11:55 O2 Del Method Room Air 09/06/22 11:55 Pain Score (VAS): 0 I/O: Intake & Output 09/05/22 09/06/22 09/06/22 23:59 07:59 15:59 Intake Total 100 Balance 100 Post-procedural complaints: none Patient Feedback: Patient satisfied with anesthetic care. Other Findings: Patient vital signs back to baseline. Patient denies nausea and vomiting. Patient's pain under control. Patient OK for discharge.
== END 2022-09-06 12:17 | disposition home or self-care (01) ==
PROVIDERS: PCP Internal Medicine; Visit Provider Internal Medicine Gastroenterology
PROC: 0DJ08ZZ Inspection of Upper Intestinal Tract, Via Natural or Artificial Opening Endoscopic (ICD-10-PCS; CPT 43235; principal; 2022-09-06 11:30)
PROC: 0DJD8ZZ Inspection of Lower Intestinal Tract, Via Natural or Artificial Opening Endoscopic (ICD-10-PCS; CPT 45378; 2022-09-06 11:30)
DX: R19.5 Other fecal abnormalities (principal)
CPT/HCPCS: 45378; 43239

== ENCOUNTER 2023-02-04 10:41 | Outpatient (CLI) | payer MEDICARE, SELFPAY ==
--- NOTE | ~2023-02-04 | XR_ITS ---
AP view of the pelvis and AP and lateral views of the left hip Clinical history: Pain Findings: No acute fracture or dislocation is seen. Osseous alignment is anatomic. Bilateral hip and SI joint spaces are preserved. Soft tissues are unremarkable. Impression: No significant abnormality is seen. Reviewed, dictated and finalized at [facility]. 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
--- NOTE | ~2023-02-04 | XR_ITS ---
EXAMINATION:XR cervical spine 4-5V DATE: 02/04/2023 10:57 INDICATION: Neck pain TECHNIQUE: AP, lateral, bilateral oblique and odontoid views of the cervical spine are provided. COMPARISON: MRI, 06/12/2019 FINDINGS: There are changes of anterior fusion from C4 through C7. Alignment is normal. The odontoid process is intact. No fracture is identified. The vertebral body heights are maintained. There is mil d loss of intervertebral disc space height at C3-4. Prevertebral soft tissues are normal. There is mu ltilevel moderate to severe facet and uncovertebral joint osteoarthritis. IMPRESSION: 1. Mild cervical spondylosis without acute findings or significant interval change. Stable anterior f usion from C4 through C7. Reviewed, dictated and finalized at location B. 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 Mild cervical spondylosis without acute findings or significant interval parth nge. Stable anterior fusion from C4 through C7.
== END 2023-02-04 10:42 | disposition home or self-care (01) ==
PROVIDERS: PCP Family Medicine; Visit Provider Physician Assistant Medical
DX: M25.552 Pain in left hip (principal); M47.892 Other spondylosis, cervical region
CPT/HCPCS: 72050; 73502

== ENCOUNTER 2023-02-15 13:56 | Outpatient (CLI) | payer MEDICARE, SELFPAY ==
--- NOTE | ~2023-02-15 | CT_ITS ---
CT Scan of the Chest without Contrast: Clinical Indication: Lung cancer screening, personal history of nicotine dependence Technique: Contiguous sections were acquired throughout the chest without intravenous contrast. Dose reduction technique was used on this scan by utilizing automated exposure control and iterative recon struction technique. The dose-length product (DLP) was 65.06 mGy-cm. Findings: There is no evidence of any significant mediastinal, hilar or axillary lymphadenopathy. The mediastin al soft tissues appear normal. There is no evidence of pleural or pericardial effusion. No pulmonary nodule evident. There is linear scarring at the left lung base adjacent to chronic rib f racture deformities. There is mild emphysema. Images through the upper abdomen reveal no abnormalities. Impression: Lung RADS 1: Negative. 12 month follow-up screening CT advised. Reviewed, dictated and finalized at [facility]. 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 12 month follow-up screening CT advised.
== END 2023-02-15 13:57 | disposition home or self-care (01) ==
PROVIDERS: PCP Family Medicine; Visit Provider Physician Assistant Medical
DX: Z12.2 Encounter for screening for malignant neoplasm of respiratory organs (principal); Z87.891 Personal history of nicotine dependence
CPT/HCPCS: 71271

== ENCOUNTER 2023-07-25 14:44 | Outpatient (CLI) | payer MEDICARE, SELFPAY ==
--- NOTE | ~2023-07-25 | DEXA_ITS ---
Bone Density Report Name: RICK TAI I Age: 57 Sex: Female Ethnicity: White Date of : 1965 Indication: postmenopausal; screening for osteoporosis; asthma or emphysema; hysterectomy; Referring Provider: SHAUN MILLER Study: Bone densitometry was performed. Exam Date: July 25, 2023 Accession number: [id number] Bone Density: Region BMD T-score Z-score Classification AP Spine(L1-L4) 1.204 1.4 2.8 Normal Femoral Neck (Left) 0.673 -1.6 -0.3 Osteopenia Total Hip (Left) 0.802 -1.1 -0.2 Osteopenia Femoral Neck (Right) 0.678 -1.5 -0.3 Osteopenia Total Hip (Right) 0.826 -1.0 0.0 Normal Total Hip Mean 0.814 -1.1 -0.1 Osteopenia World Health Organization criteria for BMD impression classify patients as: Normal (T-score at or above -1.0), Osteopenia (T-score between -1.0 and -2.5), or Osteoporosis (T-score at or below -2.5). 10-year Fracture Risk(1): Major Osteoporotic Fracture 7.4% Hip Fracture 0.7% Reported Risk Factors: [place] (), Neck BMD=0.673, BMI=21.6 (1) FRAX(R) Version 3.08. Fracture probability calculated for an untreated patient. Fracture probability may be lower if the patient has received treatment. Previous Exams: Region Exam Age BMD T-score BMD Change BMD Change Date g/cm2 vs Baseline vs Previous AP Spine (L1-L4) 07/25/2023 57 1.204 1.4 0.020 (1.7%)# 0.020 (1.7%)# 01/14/2018 52 1.184 1.2 Total Hip(Left) 07/25/2023 57 0.802 -1.1 -0.111 (-12.2% -0.111 (-12.2% 01/14/2018 52 0.914 -0.2 Total Hip(Right) 07/25/2023 57 0.826 -1.0 -0.097 (-10.5% -0.097 (-10.5% 01/14/2018 52 0.923 -0.2 *Denotes significance at 95% confidence level, LSC for AP Spine = 0.022 g/cm2, LSC for Total Hip = 0.027 g/cm2 # Denotes dissimilar scan types or analysis methods Clinical Information Provided by Patient: Has used the following medications: Vitamin D, Calcium Has the following medical conditions: Asthma or Emphysema, Hysterectomy Patient maximum height was 63 Menopause Age: 34 Does not regularly consume dairy products Drinks caffeinated beverages Onset of menses at age 10 Number of children 2 Impression: The patient has low bone mass, based on the Left Femoral Neck T-score. The patient has an estimated ten-year risk of hip fracture of 0.7% and an estimated ten-year risk of major fracture of 7.4%, based on the WHO FRAX algorithm. No significant bone loss was observed. Discussion: BONE DENSITY IS LOW AT ONE OR MORE SKELETAL SITES. This patient's lowest T-score is low at one or
--- NOTE | ~2023-07-25 | MM_ITS ---
EXAMINATION: MM screening emani BI w davy HISTORY: Screening TECHNIQUE: Craniocaudal and mediolateral oblique 3-D tomosynthesis images were obtained and synthetic 2-D images were generated. CAD analysis was submitted and interpreted. COMPARISON: No prior mammogram is available for comparison at this institution. BREAST PARENCHYMAL COMPOSITION: Not dense: There are scattered areas of fibroglandular density. FINDINGS: There is no evidence of suspicious mass, calcification, or architectural distortion to sugg est malignancy in either breast. There has been no suspicious interval change. IMPRESSION: 1. No mammographic evidence of malignancy. 2. Recommend routine screening mammography in one year. BI-RADS Category 1: Negative Reviewed, dictated and finalized at location B.
== END 2023-07-25 14:45 | disposition home or self-care (01) ==
LOC: ANHIMG 14:51
PROVIDERS: PCP Family Medicine; Visit Provider Physician Assistant Medical
DX: Z12.31 Encounter for screening mammogram for malignant neoplasm of breast (principal); E89.40 Asymptomatic postprocedural ovarian failure; Z90.710 Acquired absence of both cervix and uterus; M85.852 Other specified disorders of bone density and structure, left thigh; M85.851 Other specified disorders of bone density and structure, right thigh
CPT/HCPCS: 77063; 77067; 77080

== ENCOUNTER 2023-11-05 18:28 | Emergency (ER) | payer MEDICARE, SELFPAY ==
--- NOTE | ~2023-11-05 | CT_ITS ---
EXAMINATION: CT abdomen pelvis w con DATE: 11/05/2023 21:35 INDICATION: Abdominal pain TECHNIQUE: Computed tomography (CT) of the abdomen and pelvis was performed with 100 CC Omnipaque 350 intravenous contrast. Automated exposure control and iterative reconstruction technique were employe d. Exam dose: 199.92 mGy-cm total exam DLP. COMPARISON: 10/09/2021 CT abdomen pelvis FINDINGS: Chronic discoid scarring lateral aspect of the left lower lobe, present on 10/09/2021. No interval infiltrate or consolidation at the lung bases. Normal heart size. No pericardial or pleural effusion. Several stable hepatic cysts are unchanged since 10/09/2021. The liver, gallbladder, bile ducts, splee n, pancreas and pancreatic duct are otherwise unremarkable. Normal morphology of the adrenal glands. There is mild perinephric fat stranding of the right kidney in addition to occasional areas of dimini shed contrast enhancement of the right renal parenchyma. There is asymmetric enhancement of the right renal pelvis and ureter and mild fat stranding around these structures. The findings are consistent with a right acute pyelonephritis. No renal space occupying mass lesion is evident on either side. There is no perinephric stranding or evidence of pyelonephritis on the left. No urinary tract calculus or hydroureteronephrosis. The urinary bladder is relatively evacuated but essentially unremarkable. No unusual bladder wall thi ckening or pericystic fat stranding is noted. Status post hysterectomy. There is atherosclerotic calcification but normal caliber of the abdominal aorta and iliac arteries. No intraperitoneal or retroperitoneal or pelvic mass lesion or adenopathy or ascites is noted. No evidence of appendicitis. No bowel obstruction or intraperitoneal free air. Prominent degenerative change at the lumbar apophyseal joints, especially at L5-S1. No suspicious osteolytic or osteoblastic lesions are noted. IMPRESSION: Right acute pyelonephritis Stable right hepatic cysts Chronic stable discoid scarring, lateral left lower lobe Status post hysterectomy Reviewed, dictated and finalized at Location [facility]. Reviewed, dictated and finalized at location A.
[2023-11-05 18:29] VITALS: BP 128/92; PULSE 89; RESP 16; TEMP 37; O2SAT 99
[2023-11-05 20:49] LABS: Basophils Percent Auto 0.2 % (0.2-1.2); Eosinophils Percent Auto 0.1 % (0-4.4); Hematocrit 34.7 % (37.0-47.0); Hemoglobin 11.6 g/dL (12.0-15.0); Immature Granulocyte Absolute 0.04 K/mm3 (0.00-0.031); Immature Granulocyte Percent A 0.4 % (0-0.5); Lymphocytes Absolute Auto 0.79 K/mm3 (0.9-3.2); Lymphocytes Percent Auto 8.3 % (18.3-44.2); Mean Corpuscular HGB Conc 33.4 g/dl (32-36); Mean Corpuscular Hemoglobin 29.9 pg (26-34); Mean Corpuscular Volume 89.4 fl (80-100); Mean Platelet Volume 9.7 fl (7.4-10.4); Monocytes Absolute Auto 0.9 K/mm3 (0.1-0.6); Monocytes Percent Auto 9.8 % (2.6-8.5); Neutrophils Absolute Auto 7.7 K/mm3 (1.3-6.7); Neutrophils Percent Auto 81.2 % (45.5-73.1); Platelet Count Result 153 k/mm3 (150-375); Red Blood Count 3.88 M/mm3 (4.2-5.4); Red Cell Distribution Width 13.3 % (11.5-14.5); White Blood Count 9.5 K/mm3 (4.5-10.0)
[2023-11-05 20:53] LABS: Add Urine Microscopic? YES; Appearance Urine Cloudy (Clear); Bacteria Urine None Seen /hpf; Bilirubin Urine Negative (Negative); Blood Urine Trace (Negative); Color Urine Yellow (Yellow); Glucose Urine UA Negative (Negative); Ketones Urine 1+ mg/dL (Negative); Leukocyte Esterase Ur 1+ LEU/UL (Negative); Nitrate Urine Negative (Negative); Protein Urine 3+ mg/dL (Negative); RBC Urine 21-50 /hpf (0-2); Specific Grav Ur 1.022 (1.001-1.035); Squamous Epithelial Cell Urine Few /hpf (Few); Urobilinogen Urine 0.2 mg/dL (<2.0); WBC Urine 51-100 /hpf (0-3); pH Urine 5.5 (5.0-9.0)
[2023-11-05 21:01] LABS: Lactic Acid Reflex 0.6 mmol/L (0.7-2.0); Lipase 29 U/L (23-300)
[2023-11-05 21:02] LABS: Alanine Aminotransferase 17 U/L (6-35); Albumin Level 4.1 g/dL (3.5-5.1); Alkaline Phosphatase 64 U/L (38-126); Anion Gap 7 mmol/L (4-12); Aspartate Amino Transferase 24 U/L (14-36); Bilirubin,Total 0.4 mg/dL (0.2-1.3); Blood Urea Nitrogen 9 mg/dL (7-17); Calcium 9.3 mg/dL (8.4-10.2); Carbon Dioxide 28 mmol/L (22-30); Chloride 93 mmol/L (98-107); Estimated CRCL calculation 51 ml/min; Estimated Glomerular Filt Rate > 60; Glucose 100 mg/dL (65-110); Potassium 3.6 mmol/L (3.4-5.0); Sodium 128 mmol/L (137-145)
[2023-11-05] MEDS: ONDANSETRON INJ 4 MG/2 ML VIAL IV PUSH (21:16)
[2023-11-05] MEDS: SODIUM CHLORIDE 0.9% IV 1,000 ML 999 ML IV CONT (21:16)
[2023-11-05] MEDS: MORPHINE SULFATE (*CRX) 4 MG/ML INJ IV PUSH (21:16)
[2023-11-05 21:20] VITALS: BP 131/72; PULSE 93; RESP 18; O2SAT 100
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
[2023-11-05 22:50] VITALS: BP 155/75; PULSE 94; RESP 18; O2SAT 99
[2023-11-05 23:15] VITALS: BP 148/76; PULSE 97; RESP 18; O2SAT 97
--- NOTE | 2023-11-18 07:38 | PC.NURSE ---
Late entry Ceftriaxone completed @ 2758 on 11/05/23
== END 2023-11-05 23:17 | disposition home or self-care (01) ==
PROVIDERS: Emergency Provider Emergency Medicine; PCP Family Medicine
DX: N10 Acute pyelonephritis (principal); D64.9 Anemia, unspecified; E78.5 Hyperlipidemia, unspecified; E55.9 Vitamin D deficiency, unspecified; F41.9 Anxiety disorder, unspecified; F90.9 Attention-deficit hyperactivity disorder, unspecified type; F32.A Depression, unspecified; Z90.710 Acquired absence of both cervix and uterus; Z87.891 Personal history of nicotine dependence; Z79.899 Other long term (current) drug therapy; K76.89 Other specified diseases of liver
CPT/HCPCS: 36415; 74177; 80053; 81001; 83605; 83690; 85025; 87077; 87086; 87088; 87186; 96365; 96375; 99284; J0696; J2270; J2405; J7030; Q9967

== ENCOUNTER 2024-06-22 03:18 | Emergency (ER) | payer MEDICARE, SELFPAY ==
--- NOTE | ~2024-06-22 | XR_ITS ---
Lumbosacral Spine: AP and lateral views Clinical History: Pain Findings: The normal lordotic curve is maintained. The vertebral bodies and posterior elements are i ntact. There is mild degenerative disc narrowing at L2-L3.. There is moderate to advanced facet arthr opathy from L4 through S1. The sacroiliac joints are normally outlined. Impression: Facet arthropathy, as above. Reviewed, dictated and finalized at location M. Impression: Facet arthropathy, as above.
--- OUTSIDE RECORDS SUMMARY | 2024-06-22 03:20 | XMS_ITS | Encounter Summary ---
Author Organization [facility] Address 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
--- OUTSIDE RECORDS SUMMARY | 2024-06-22 03:20 | XMS_ITS | Clinical Summary ---
Author Organization [facility] Address [address] [place] [address] Care Team Providers Care Local Driver Name Role Phone Carl Garg MD Primary Care Provider [phone] Allergies No known active allergies Medications cholecalciferol , vitamin D3, 1,000 unit Take by mouth. Active multivitamin (DAILY-ANA) tablet Take 1 Tablet by mouth daily. Active lidocaine (LIDODERM) 5 % Adhesive Patch, Medicated Apply 1 Patch to affected area every 24 hours. Active [id number] -Fish Oil (FISH OIL) 1,000 mg (120 mg-180 mg) Capsule Take by mouth. Active dextroamphetami ne-amphetamine (ADDERALL) 20 mg tablet TK 1 T PO TID 03/21/2017 Activ e Active Problems Problem Noted Date Diagnosed Date Major depressive disorder, recurrent episode, mo derate 01/22/2018 Primary insomnia 01/22/2018 Pre-hypertension 01/22/2018 Irritable bowel syndrome 01/22/2018 Bipolar disorder, unspecified 01/22/2018 Attention deficit hyperactivity disorder 018 Hepatic lesion 01/22/2018 Left shoulder pain 01/22/2018 Immunizations Immunization Administration Dates Next Due (ADACEL/BOOSTRIX)(10 YR UP) TDAP VACCINE, 0.5ML, IM 09/04/2016 Influenza Seasonal Unspecifi ed Formulation IM 11/18/2017,11/15/2015,02/14/2013 Family History Medical History Relation Name Comments High Cholesterol Brother 2 Hypertension Brother 2 Heart Disease Father Seizures Father Depression Mother Diabetes Mother Hypertension Mother Diabetes Sister Hypertension Sister Other Sister cva Relation Name Status Comments Brother 1 Alive Brother 2 Alive Father Maternal Grandfather Maternal Grandmother Mother Paternal Grandfather Paternal Grandmother Sister Social History Tobacco Use Types Packs/Day Years Used Date Smoking Tobacco: Never Smokeless Tobacco: Never Alcohol Use Standard Drinks/Week Comments Yes 4 (1 standard drink = 0.6 oz pur e alcohol) Comments No Sex and Gender Information Value Date Recorded Sex Assigned at Not on file 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 Gender Identity Not on file Sexual Orientation Not on file 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 Not on file Not on file Not on file Last Filed Vital Signs Vital Sign Reading Time Taken Comments Blood Pressure 142/80 09/30/2017 1:49 PM CDT Pulse 93 09/30/2017 1:49 PM CDT Temperature 36.8 C (98.3 F) 09/30/2017 1:49 PM CDT Respiratory Rate 20 09/30/2017 1:49 PM CDT Oxygen Saturation - - Inhaled Oxygen Concentration - - Weight 59 kg (130 lb) 04/24/2018 9:06 AM CDT Height 162.6 cm (5' 4 ) 04/24/2018 9:06 AM CDT Body Mass Index 22.31 04/24/2018 9:06 AM CDT Plan of Treatment Health Maintenance Due Date Last Done Comments HPV/Cotest (21-29) 10/09/1984 HPV/Cotest (30-65) 10/09/1993 CERVICAL CANCER SCREENING 01/22/2003 PAP SMEAR 01/22/2003 01/23/2000 BREAST CANCER SCREENING 2003 FIT-DNA Q 3 years 10/09/2008 FIT/FOBT Q 1 year 10/09/2008 Flex Sig/CT Colonography Q 5 years 10/09/2008 ZOSTER VACCINE (1 of 2) 10/09/2013 INFLUENZA VACCINE (#1) 2023 9, 11/18/2017, 11/15/2015, Additional history exists HEPATITIS B VACCINES (1 of 3 - Risk 3-dose series) 2023 RSV VACCINE (60+ or ) (1 - Risk 60-74 years 1-dose series) 2023 COLORECTAL SCREENING 01/23/2024 01/22/2014 Colorectal Cancer Screening 01/23/2024 DTAP/TDAP/TD VACCINES (2 - T d or Tdap) 09/04/2026 09/04/2016 Insurance [facility] BLUE ACCESS/TRUE BLUE PPO Care Teams Local Driver Relationship Specialty Start Date End Date Carl Garg MD [address] [place] [id number] PCP - General Internal Medicine 02/23/18
--- OUTSIDE RECORDS SUMMARY | 2024-06-22 03:20 | XMS_ITS | Encounter Summary ---
Author Organization [facility] Address [address] [place] [address] Care Team Providers Care Welfare Officer Name Role Phone Carl Garg MD Primary Care Provider [phone] Encounter Details Date Type Department Care Team (Late st Contact Info) Description 12/13/2002 Outpatient [facility] Family Medicine [address] [place] [address] [phone] Tate Everett DO NO ADDRESS ON FILE Social History Tobacco Use Types Packs/Day Years Used Date Smoking Tobacco: Never Assessed Comments Unknown Sex and Gender Information Value Date Recorded Sex Assigned at Not on file 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
--- OUTSIDE RECORDS SUMMARY | 2024-06-22 03:20 | XMS_ITS | Clinical Summary ---
Author Organization [facility] Address [address] [address] Care Team Providers Care Interactive Multimedia Designer Name Role Phone Ilana Almaraz MD Primary Care Provide r Source Comments [facility],non-owned Affiliates and Associated Physician Practices is amultiple site organization consisting of ambulatory clinics and hospital sitesin [place], [place], [place] and [place]. This disclosure is being madepursuant to the Care Everywhere program and may not contain all information available regarding this patient. Last updated 17.[facility] Allergies No known active allergies Medications * Be aware that medications may not be up to date on this document. Alwaysverify current medications with the patient. multivitamin daily (THERAGRAN) tablet Take 1 Tab by mouth daily with food. Active ibuprofen (MOTRIN) 600 MG tablet Take 1 Tab by mouth every 6 hours as needed for Pain. 20 Tab 0 4 Active Additional Information Patient not taking.Reported on 06/28/2017 ALPRAZolam (XANAX) 0.5 MG tablet TK 1 T PO TID 0 8 Active Vitamins/Minera ls TABS Take 1 tablet by mouth Active Sherman-3 Fatty Acids (FISH OIL) 500 MG capsule Active amphetamine-dex troamphetamine (ADDERALL) 20 MG tablet TK 1 T PO TID 8 Active tiZANidine (ZANAFLEX) 4 MG tablet TK 2 TS PO Q 8 H PRF MUSCLE SPASM 1 8 Active naproxen (NAPROSYN) 500 MG tablet Take 500 mg by mouth Active lidocaine (LIDODERM) 5 % patch Apply 1 patch to skin 7 Active gabapentin (NEURONTIN) 600 MG tablet 8 Active Active Problems Problem Noted Date Diagnosed Date Chronic left shoulder pain 05/23/2017 Social History Tobacco Use Types Packs/Day Years Used Date Smoking Tobacco: Former Cigarettes Q uit: 12/16/2012 Smokeless Tobacco: Never Comments:e cig Alcohol Use Standard Drinks/Week Comments Yes 0 (1 standard drink = 0.6 oz pur e alcohol) occasional Comments Unknown Sex and Gender Information Value Date Recorded Sex Assigned at Not on file Legal Sex Female 5:47 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 Gender Identity Not on file Sexual Orientation Not on file Last Filed Vital Signs Vital Sign Reading Time Taken Comments Blood Pressure 147/82 05/23/2017 9:13 AM CDT Pulse 76 12/02/2016 4:21 PM CDT Temperature 36.9 C (98.5 F) 05/23/2017 9:13 AM CDT Respiratory Rate 20 09/28/2016 3:03 PM CDT Oxygen Saturation 100% 09/28/2016 3:03 PM CDT Inhaled Oxygen Concentration - - Weight 63.5 kg (140 lb) 07/14/2017 5:27 PM CDT Height 162.6 cm (5' 4 ) 07/14/2017 5:27 PM CDT Body Mass Index 24.03 07/14/2017 5:27 PM CDT Plan of Treatment Health Maintenance Due Date Last Done Comments COLOGUARD (AGES 45-75) - COL ON CA SCREENING 1965 COLON MONITORING 1965 COLONOSCOPY - COLON CA SCREENING 1963 CT COLONOGRAPHY - COLON CA SCREENING 1965 Colorectal Cancer Screening 1965 FIT - COLON CA SCREENING 1965 FLEX SIG - COLON CA SCREENING 1965 LIPID TESTING 1965 MAMMOGRAM 1965 HIV SCREENING 10/09/1978 HEPATITIS C SCREENING 10/05/1981 DTAP/TDAP/TD VACCINES (1 - Tdap) 10/09/1982 PNEUMOCOCCAL VACCINE 50+ (1 of 1 - PCV) 10/09/2013 ZOSTER VACCINE (1 of 2) 10/09/2013 COVID-19 VACCINE ( - 2023-2 5 season) 2023 DEPRESSION SCREENING 02/15/2024 INFLUENZA VACCINE (Season Ended) 2024 Respiratory Syncytial Virus (RSV) Vaccine Pt: or over 60 yrs (1 - 1-dose 75+ series) 10/09/2038 HEPATITIS B VACCINE Aged Out No longe r eligible based on patient's age to complete this topic HIB VACCINE Aged Out No longer eligi ble based on patient's age to complete this topic HPV VACCINE Aged Out No longer eligi ble based on patient's age to complete this topic MENINGOCOCCAL (Group B) VACC INE SHARED DECISION-MAKING Aged Out No longer eligibl e based on patient's age to complete this topic MENINGOCOCCAL GROUPS A/C/Y/W VACCINE Aged Out No longer eligible b ased on patient's age to complete this topic Insurance [employer] Care Teams Interactive Multimedia Designer Relationship Specialty Start Date End Date Ilana Almaraz MD PCP - General Family Medicine 07/13/17
--- OUTSIDE RECORDS SUMMARY | 2024-06-22 03:20 | XMS_ITS | Encounter Summary ---
Author Organization [facility] Address [address] [place] [address] Care Team Providers Care Scrap Preparer Name Role Phone Carl Garg MD Primary Care Provider [phone] Encounter Details Date Type Department Care Team (Late st Contact Info) Description 07/25/2002 [facility] [address] [place] [address] [phone] Tate Everett DO NO ADDRESS ON FILE Social History Tobacco Use Types Packs/Day Years Used Date Smoking Tobacco: Never Assessed Comments Unknown Sex and Gender Information Value Date Recorded Sex Assigned at Not on file 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 [place] [phone] PCP - General Internal Medicine 02/23/18 documented as of this encounter
--- OUTSIDE RECORDS SUMMARY | 2024-06-22 03:20 | XMS_ITS | Clinical Summary ---
Author Organization [facility] Address [address] [place] [id number] Care Team Providers Care Chief Scientist Name Role Phone Unavailable Primary Care Provider Unavailabl e Social History Tobacco Use Types Packs/Day Years Used Date Smoking Tobacco: Never Assessed Comments Unknown Sex and Gender Information Value Date Recorded Sex Assigned at Not on file Legal Sex Female 9:06 PM CDT Gender Identity Not on file Sexual Orientation Not on file Last Filed Vital Signs Vital Sign Reading Time Taken Comments Blood Pressure 128/80 07/30/2015 7:15 AM CDT Pulse 69 07/30/2015 7:15 AM CDT Temperature - - Respiratory Rate - - Oxygen Saturation - - Inhaled Oxygen Concentration - - Weight 64.4 kg (142 lb) 07/30/2015 7:15 AM CDT Height 161.3 cm (5' 3.5 ) 07/30/2015 7:15 AM CDT Body Mass Index 24.76 07/30/2015 7:15 AM CDT Plan of Treatment Health Maintenance Due Date Last Done Comments Cervical Cancer Screening Pa p Smear (Age 30 to 64) Every 3 Years 1965 Colorectal Cancer Screening Colonoscopy (10 Years) 1965 Annual Physical 10/09/1966 DTaP, Tdap and Td Vaccines ( 1 - Tdap) 10/09/1982 Cervical Cancer Screening Pa p with HPV Testing (Age 30 to 64) Every 5 Years 10/09/1993 Cervical Cancer Screening with HPV 10/09/1993 Mammogram Screening 2003 Pneumococcal Vaccine: 50+ Ye ars (1 of 1 - PCV) 10/09/2013 Zoster Vaccines (1 of 2) 10/09/2013 COVID-19 Vaccine ( - 2023-2 5 season) 2023 RSV Immunization or 60+ Years (1 - 1-dose 75+ series) 10/09/2038 Hepatitis C Completed 07/30/2015 Meningococcal B Vaccine Aged Out No l onger eligible based on patient's age to complete this topic Meningococcal Vaccine Aged Out No steven harinder eligible based on patient's age to complete this topic RSV Immunizations Under 20 Months Aged Out No longer eligible based on patient's age to complete this topic Procedures Procedure Name Priority Date/Time Associated Diagnosis Comments HEPATITIS C ANTIBODY Routine 07/30/2015 7:37 AM CDT from Last 3 Months or Most Recently Relevant to Health Maintenance Results * HEPATITIS C ANTIBODY (07/30/2015 7:37 AM CDT) HEPATITIS C AB NON-REACT JIMBO NON-REACT JIMBO [facility] TO EPIC CONVERSION SIGNAL TO CUTOFF 0.01 <1.00 [facility] TO EPIC CONVERSION Comment: Result Comment: Test Performed at: [facility] [address] [place] [address] MATA THOMPSON DO,MPH 07/30/2015 7:37 AM CDT 07/30/2015 7:37 AM CDT Narrative [facility] TO EPIC CONVERSION - 07/31/2015 6:26 AM CDT Result Communication: Mail Results to Patient us Nadia Guthrie NP LABORATORY Final Result [facility] TO EPIC CONVERSION from Last 3 Months or Most Recently Relevant to Health Maintenance
--- OUTSIDE RECORDS SUMMARY | 2024-06-22 03:20 | XMS_ITS | Encounter Summary ---
Author Organization [facility] Address [address] [place] [address] Care Team Providers Care Golf Course Patroller Name Role Phone Carl Garg MD Primary Care Provider [phone] Encounter Details Date Type Department Care Team (Late st Contact Info) Description 09/12/2001 Outpatient Historical [facility] & [facility] Family Medicine [address] [place] [address] [phone] Tate Everett DO NO ADDRESS ON FILE Social History Tobacco Use Types Packs/Day Years Used Date Smoking Tobacco: Never Assessed Comments Unknown Sex and Gender Information Value Date Recorded Sex Assigned at Not on file 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
--- OUTSIDE RECORDS SUMMARY | 2024-06-22 03:20 | XMS_ITS | Encounter Summary ---
Author Organization [facility] Address [address] [place] [address] Care Team Providers Care Lockstitch Sleeve Setter Name Role Phone Carl Garg MD Primary Care Provider [phone] Encounter Details Date Type Department Care Team (Late st Contact Info) Description 07/09/1998 Outpatient Historical [facility] & [facility] Family Medicine [address] [place] [address] [phone] Tate Everett DO NO ADDRESS ON FILE Social History Tobacco Use Types Packs/Day Years Used Date Smoking Tobacco: Never Assessed Comments Unknown Sex and Gender Information Value Date Recorded Sex Assigned at Not on file Legal Sex Female 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
--- OUTSIDE RECORDS SUMMARY | 2024-06-22 03:20 | XMS_ITS | Encounter Summary ---
Author Organization [facility] Address [address] [place] [address] Care Team Providers Care Systems Project Manager Name Role Phone Carl Garg MD Primary Care Provider [phone] Encounter Details Date Type Department Care Team (Late st Contact Info) Description 04/19/2002 Outpatient Historical [facility] Medicine [address] [place] [address] [phone] Tate Everett DO NO ADDRESS ON FILE Social History Tobacco Use Types Packs/Day Years Used Date Smoking Tobacco: Never Assessed Comments Unknown Sex and Gender Information Value Date Recorded Sex Assigned at Not on file 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
--- OUTSIDE RECORDS SUMMARY | 2024-06-22 03:20 | XMS_ITS | Encounter Summary ---
Author Organization [facility] Address [address] [place] [address] Care Team Providers Care Legal Billing Analyst Name Role Phone Carl Garg MD Primary Care Provider [phone] Encounter Details Date Type Department Care Team (Late st Contact Info) Description 04/02/1998 Outpatient Historical [facility] Family Medicine [address] [place] [address] [phone] Tate Everett DO NO ADDRESS ON FILE Social History Tobacco Use Types Packs/Day Years Used Date Smoking Tobacco: Never Assessed Comments Unknown Sex and Gender Information Value Date Recorded Sex Assigned at Not on file Legal Sex Female 4:41 AM 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
--- OUTSIDE RECORDS SUMMARY | 2024-06-22 03:20 | XMS_ITS | Data Portability ---
Author Organization [facility] Address [address] [place] [address] Assessment No assessment recorded. Plan of Treatment Reminders Order Date Submit Date Provider Last Modified By Organization Details Last Modified Time Details Appointments None recorded. Lab lipid panel, serum 2015 016 [facility] [facility], [address] [facility], [address], [place], [address], 6 15:08:27 HIV (1+2) Ab screen, serum 2015 016 [employer] [facility], [address] [facility], [address], [place], [address], 6 15:08:29 urinalysis, complete 2015 016 [employer] [facility], [address] [facility], [address], [place], [address], 6 15:08:29 Referral psychiatris t referral 2015 016 [email or web address] Not available 6 08:30:06 Procedures None recorded. Surgeries None recorded. Imaging LDCT, chest, for lung cancer screening 2015 016 [email or web address] Not available 6 15:08:29 Medication Orders None recorded. Patient TargetsNo targets recorded. Patient Instructions Encounter Date Encounter Id Patient Instructions Last Modified By Organization Details Last Modified Time 11/12/2015 [id number] Lab results were discussed in detail [email or web address] Not available 11/12/2015 11:12:03 Reason for Referral Psychiatrist Referral for At tention deficit hyperactivity disorder Referring Physician: Barbara Berg, Internal Medicine, Encounter Date: 11/12/2015 Results Created Date Observation Date Name Description Value Unit Range Abnormal Flag Note LastModifiedBy Organization Detail LastModifiedTime Result Notes None recorded. Problems Name Problem SNOMED Code Status Onset Date Resolution Date Notes Provider Name and Address Organization Details Recorded Time Attention deficit hyperactivity disorder 531763129 Active Barbara Berg MD Attn: Anurag reis,[address] [facility], [place], [address], [facility] 6 13:53:39 Tobacco dependence in remission 459014069 Active Barbara Berg MD Attn: Anurag reis,[address] [place], [address], [facility] 6 13:53:39 Excessive sweating 12895870 Active Barbara Berg MD Attn: Anurag reis,[address] [facility], [place], [address], [facility] 6 13:53:39 Problem Notes None recorded. Procedures Surgical History Date Name Laterality Status Provider Name and Address Organization Details Recorded Time Eye Surgery completed Nathaniel Amador RN BSN [facility] 11/12/2015 10:33:48 Other completed ARIS Ulloa [facility] 11/12/2015 10:36:00 Other completed Nathaniel Amador RN BSN [facility] 11/12/2015 10:36:00 Imaging Results None recorded. Procedure Notes None recorded. Medical Equipment None Reported. Allergies No known drug allergies Medications Name Sig Start Date Stop Date Status Note LastModified by Organization Details LastModified Time venlafaxine ER 75 mg capsule,extende d release 24 hr active Not Available Not Availa ble Not Available trazodone 50 mg tablet active Not Available Not Available Not Available alprazolam 1 mg tablet Take 1 tablet 3 times a week by oral route as needed. active Not Available Not Available No t Available venlafaxine ER 150 mg capsule,extende d release 24 hr active Not Available Not Availa ble Not Available trazodone 100 mg tablet 2 po Q HS active Not Available Not Available No t Available dextroamphetami ne-amphetamine 20 mg tablet active Not Available Not Available Not Available Fluvirin 45 mcg (15 mcg x 3)/0.5 mL intramuscular suspension active Not Available Not Available N ot Available Vitals Date Recorded Body weight Body temperature Body height Heart rate Respiratory rate Body mass index (BMI) Systolic blood pressure Diastolic blood pressure Provider Name and Address Organization Details Last Updated DateTime 6 46298.5 86650 g 97.7 [degF] 162.56 cm 80 /min 18 /min 25.5 kg/m2 128 mm[Hg] 80 mm[Hg] Nathaniel Amador RN BSN [facility] 6 10:33:48 Social History None recorded. Functional Status None recorded. Mental Status None recorded. Family History Relationship Description Onset Age of this Age Resolved Age Notes LastModified by Organization Details LastModified Time Mother Diabetes mellitus Hypert ension , Heart attack , Depres luciano/a nxiety . [email or web address] Not available 11/12/2015 10:37:42 Father Hypertensive disorder Stroke , Heart attack . [email or web address] Not available 11/12/2015 10:37:42 Brother Hypertensive disorder mringor Not available 2015 10:37:42 Sister Heart disease mringor Not available 2015 10:37:42 Medical History Condition Response Depression Y GI Problems Y Anxiety Disorder Y Gynecological HistoryNo gynecological history recorded. Obstetrics History GPAL:G 0 P 0 0 0 0 Immunizations Vaccine Type Date Status Note Provider Nam e and Address Organization Details Recorded Time Influenza, high-dose, trivalent, PF 11/12/2015 completed Barbara Berg MD Attn: [employer] [place], [address], [facility] 11/12/2015 11:13:07 Past Encounters Encounter ID Performer Location Encounter Start Date Encounter Closed Date Diagnosis/Indication Diagnosis SNOMED-CT Code Diagnosis ICD10 Code Diagnosis Note [id number] Barbara Berg MD [facility]ult [facility] [address] [place] [address] 11/12/2015 10:13:30 11/12/2015 14:40:40 Adult health examination 526866105 Z00.00 50 y/o WF who was seeing in [place], she transferre d to a [facility] [place], [place] who was not comfortabl e refilling her medication s. Her PMHX includes ADHD, Anxiety and Depression . I have reviewed a copy of the lab results she brought in (drawn 07/30/2015) , they appear WNL. Attention deficit hyperactivity disorder 164642659 F90.9 F41.1 F33.0 On Adderall, she also takes Alprazolam , Effexor and Trazodone. She needs to see a mental health provider, I will be able to refill the last two medication s but not the Adderall or Alprazolam .. Tobacco de pendence in remission 260075694 F17.201 She was advised to wean herself off the electronic cigarettes . Excessive sweating 63281 005 R61 Family his tory of cancer of colon 747677433 Z80.0 She gets colonoscop ies every three years. Health Concerns Section Related Observation LastModified by Organization Detai ls LastModified Time None Recorded Concern Status LastModified by Organization Details LastModified Time None Recorded Advance Directives Directive None Recorded Payers Encounter Date Sequence Insurance Name Policy Number Policy Daugherty Covered Member ID Daugherty Member ID Guarantor Name 11/12/2015 1 [place] LEORA BROWER (PPO) [id number] Clementine Escobar [id number] Clementine Escobar OBGyn Episode No OBEpisode recorded.
--- OUTSIDE RECORDS SUMMARY | 2024-06-22 03:20 | XMS_ITS | Encounter Summary ---
Author Organization [facility] Address [address] [place] [address] Care Team Providers Care Music Sound Light Technician Name Role Phone Carl Garg MD Primary Care Provider [phone] Encounter Details Date Type Department Care Team (Late st Contact Info) Description 01/25/2002 [facility] Family Medicine [address] [place] [address] [phone] Tate Everett DO NO ADDRESS ON FILE Social History Tobacco Use Types Packs/Day Years Used Date Smoking Tobacco: Never Assessed Comments Unknown Sex and Gender Information Value Date Recorded Sex Assigned at Not on file Legal Sex Female 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
--- OUTSIDE RECORDS SUMMARY | 2024-06-22 03:20 | XMS_ITS | Encounter Summary ---
Author Organization [facility] Address [address] [place] [address] Care Team Providers Care Applications Trainer Name Role Phone Carl Garg MD Primary Care Provider [phone] Encounter Details Date Type Department Care Team (Late st Contact Info) Description 06/03/1998 [facility] Family Medicine [address] [place] [address] [phone] Tate Everett DO NO ADDRESS ON FILE Social History Tobacco Use Types Packs/Day Years Used Date Smoking Tobacco: Never Assessed Comments Unknown Sex and Gender Information Value Date Recorded Sex Assigned at Not on file Legal Sex Female 4:41 AM 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
--- OUTSIDE RECORDS SUMMARY | 2024-06-22 03:20 | XMS_ITS | Encounter Summary ---
Author Organization [facility] Address [address] [place] [address] Care Team Providers Care Boat Carpenter Mechanic Name Role Phone Carl Garg MD Primary Care Provider [phone] Encounter Details Date Type Department Care Team (Late st Contact Info) Description 05/09/2000 [facility] Family Medicine [address] [place] [address] [phone] Tate Everett DO NO ADDRESS ON FILE Social History Tobacco Use Types Packs/Day Years Used Date Smoking Tobacco: Never Assessed Comments Unknown Sex and Gender Information Value Date Recorded Sex Assigned at Not on file Legal Sex Female 4:41 AM 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 [place] [address] PCP - General Internal Medicine 02/23/18 documented as of this encounter
--- OUTSIDE RECORDS SUMMARY | 2024-06-22 03:20 | XMS_ITS | Encounter Summary ---
Author Organization [facility] Address [address] [place] [address] Care Team Providers Care Vocational Instructor Name Role Phone Carl Garg MD Primary Care Provider [phone] Encounter Details Date Type Department Care Team (Late st Contact Info) Description 09/11/1998 Outpatient Historical [facility] & [facility] Family Medicine [address] [place] [address] [phone] Tate Everett DO NO ADDRESS ON FILE Social History Tobacco Use Types Packs/Day Years Used Date Smoking Tobacco: Never Assessed Comments Unknown Sex and Gender Information Value Date Recorded Sex Assigned at Not on file Legal Sex Female 4:41 AM FIRST COAT OPERATOR Gender Identity Not on file Sexual Orientation Not on file documented as of this encounter Plan of Treatment Not on file documented as of this encounter Visit Diagnoses Not on filedocumented in this encounter Care Teams Vocational Instructor Relationship Specialty Start Date End Date Carl Garg MD [facility] [employer] [place] [address] PCP - General Internal Medicine 02/23/18 documented as of this encounter
--- OUTSIDE RECORDS SUMMARY | 2024-06-22 03:20 | XMS_ITS | Encounter Summary ---
Author Organization [facility] Address [address] [place] [address] Care Team Providers Care Wholesale Manager Name Role Phone Carl Garg MD Primary Care Provider [phone] Encounter Details Date Type Department Care Team (Late st Contact Info) Description 12/15/[address] [facility] Family Medicine [address] [place] [address] [phone] Tate Everett DO NO ADDRESS ON FILE Social History Tobacco Use Types Packs/Day Years Used Date Smoking Tobacco: Never Assessed Comments Unknown Sex and Gender Information Value Date Recorded Sex Assigned at Not on file 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
--- OUTSIDE RECORDS SUMMARY | 2024-06-22 03:20 | XMS_ITS | Encounter Summary ---
Author Organization [facility] Address [address] [place] [address] Care Team Providers Care Line Construction Supervisor Name Role Phone Carl Garg MD Primary Care Provider [phone] Encounter Details Date Type Department Care Team (Late st Contact Info) Description 07/21/2000 [facility] Family Medicine [address] [place] [address] [phone] Tate Everett DO NO ADDRESS ON FILE Social History Tobacco Use Types Packs/Day Years Used Date Smoking Tobacco: Never Assessed Comments Unknown Sex and Gender Information Value Date Recorded Sex Assigned at Not on file Legal Sex Female 4:41 AM INTERDISCIPLINARY PROFESSOR Gender Identity Not on file Sexual Orientation Not on file documented as of this encounter Plan of Treatment Not on file documented as of this encounter Visit Diagnoses Not on filedocumented in this encounter Care Teams Line Construction Supervisor Relationship Specialty Start Date End Date Carl Garg MD [facility] [email or web address] [address] PCP - General Internal Medicine 02/23/18 documented as of this encounter
--- OUTSIDE RECORDS SUMMARY | 2024-06-22 03:20 | XMS_ITS | Encounter Summary ---
Author Organization [facility] Address [address] [place] [address] Care Team Providers Care Truss Designer Name Role Phone Carl Garg MD Primary Care Provider [phone] Encounter Details Date Type Department Care Team (Late st Contact Info) Description 04/21/1998 [facility] Family Medicine [address] [place] [address] [phone] Tate Everett DO NO ADDRESS ON FILE Social History Tobacco Use Types Packs/Day Years Used Date Smoking Tobacco: Never Assessed Comments Unknown Sex and Gender Information Value Date Recorded Sex Assigned at Not on file Legal Sex Female 4:41 AM SAND CLEANING MACHINE OPERATOR Gender Identity Not on file Sexual Orientation Not on file documented as of this encounter Plan of Treatment Not on file documented as of this encounter Visit Diagnoses Not on filedocumented in this encounter Care Teams Truss Designer Relationship Specialty Start Date End Date Carl Garg MD [facility] [place] [address] PCP - General Internal Medicine 02/23/18 documented as of this encounter
--- OUTSIDE RECORDS SUMMARY | 2024-06-22 03:20 | XMS_ITS | Encounter Summary ---
Author Organization [facility] Address [address] [place] [address] Care Team Providers Care Admissions Clerk Name Role Phone Carl Garg MD Primary Care Provider [phone] Encounter Details Date Type Department Care Team (Late st Contact Info) Description 08/12/2000 Outpatient Historical [facility] & [facility] Family Medicine [address] [place] [address] RobertalLiliane munoz Social History Tobacco Use Types Packs/Day Years Used Date Smoking Tobacco: Never Assessed Comments Unknown Sex and Gender Information Value Date Recorded Sex Assigned at Not on file Legal Sex Female 4:41 AM RESEARCH SUBJECT Gender Identity Not on file Sexual Orientation Not on file documented as of this encounter Plan of Treatment Not on file documented as of this encounter Visit Diagnoses Not on filedocumented in this encounter Care Teams Admissions Clerk Relationship Specialty Start Date End Date Carl Garg MD [facility] [place] [address] PCP - General Internal Medicine 02/23/18 documented as of this encounter
--- OUTSIDE RECORDS SUMMARY | 2024-06-22 03:20 | XMS_ITS | Encounter Summary ---
Author Organization [facility] Address [address] [place] [address] Care Team Providers Care Toll Test Desk Worker Name Role Phone Carl Garg MD Primary Care Provider [phone] Encounter Details Date Type Department Care Team (Late st Contact Info) Description 09/25/1999 Outpatient Historical [facility] & [facility] Family Medicine [address] [place] [address] [phone] Tate Everett DO NO ADDRESS ON FILE Social History Tobacco Use Types Packs/Day Years Used Date Smoking Tobacco: Never Assessed Comments Unknown Sex and Gender Information Value Date Recorded Sex Assigned at Not on file Legal Sex Female 4:41 AM INCLUSION TEACHER Gender Identity Not on file Sexual Orientation Not on file documented as of this encounter Plan of Treatment Not on file documented as of this encounter Visit Diagnoses Not on filedocumented in this encounter Care Teams Toll Test Desk Worker Relationship Specialty Start Date End Date Carl Garg MD [facility] [place] [address] PCP - General Internal Medicine 02/23/18 documented as of this encounter
--- OUTSIDE RECORDS SUMMARY | 2024-06-22 03:20 | XMS_ITS | Encounter Summary ---
Author Organization [facility] Address [address] [place] [address] Care Team Providers Care Pickling Solution Maker Name Role Phone Carl Garg MD Primary Care Provider [phone] Encounter Details Date Type Department Care Team (Late st Contact Info) Description 05/01/2001 Outpatient [facility] Family Medicine [address] [place] [address] [id number] Tate Everett DO NO ADDRESS ON FILE Social History Tobacco Use Types Packs/Day Years Used Date Smoking Tobacco: Never Assessed Comments Unknown Sex and Gender Information Value Date Recorded Sex Assigned at Not on file 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 [address] PCP - General Internal Medicine 02/23/18 documented as of this encounter
--- OUTSIDE RECORDS SUMMARY | 2024-06-22 03:20 | XMS_ITS | Patient Health Record ---
Author Organization [facility] Address [address] [place] [address] Care Team Providers Care Bindery Supervisor Name Role Phone Adis Wynn Unavailable [phone] REASON FOR REFERRAL No Information MEDICATIONS Medication SIG (Take, Route, Frequency, Duration) Notes Start Date End Date Status Amphetamine-Dextroamphet ER 20 MG 1 capsule in the morning Orally Once a day Active ALPRAZolam 0.5 MG 1 tablet Orally daily Active SOCIAL HISTORY Tobacco Use: Social History Observation Description Date Details (start date - stop date) Former Smoker NA - NA Sex Assigned At : Social History Observation Description Sex Assigned At Unknown Tobacco Use/Smoking Question Answer Notes Are you a former smoker How long has it been since you last smoked? 5-10 years Alcohol Screen (Audit-C) Question Answer Notes Did you have a drink containing alcohol in the p ast year? 

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
--- OUTSIDE RECORDS SUMMARY | 2024-06-22 03:21 | XMS_ITS | Referral Summary ---
Author Organization [facility] Address [address] [place] [address] Care Team Providers Care Lead Electrician Name Role Phone Neri STEVENS MD, Gregory Amor Unavailable [phone] Anand Rao MD Unavailable [phone] Keanu Ma MD Primary Care Provider [phone] Allergies No known active allergies Medications ascorbic [...] (10/25/2017): Added automatically from request for surgery [id number] Chronic left shoulder pain 05/23/2017 Immunizations Immunization [...] 13 09/26/2020 Tdap 09/04/2016 ZOSTER Recombinant 09/26/2020 Social History Tobacco Use Types Packs/Day Years Used Date Smoking Tobacco: Former Cigarettes 1 33 1 - 2012 Smokeless Tobacco: Never Alcohol Use Standard [...] on file Legal Sex Female 8:06 AM LIVESTOCK BREEDER Gender Identity Not on file Sexual Orientation Not on file Last Filed Vital Signs Vital Sign Reading Time Taken Comments Blood Pressure 112/68 10/23/2020 1:06 PM CDT Pulse 79 10/23/2020 1:06 PM CDT Temperature 36.8 C (98.3 F) 01/28/2022 4:29 PM LIVESTOCK BREEDER Respiratory Rate 19 11/07/2017 5:45 PM CDT Oxygen Saturation 94% 11/07/2017 5:45 PM CDT Inhaled Oxygen Concentration - - Weight 54.4 kg (120 lb) 01/28/2022 4:29 PM LIVESTOCK BREEDER Height 162.6 cm (5' 4 ) 10/23/2020 1:06 PM CDT Body Mass Index 20.6 10/23/2020 1:06 PM CDT Plan of Treatment Not on file Insurance [id number] MEDICARE ADVANTAGE [facility] MEDICARE ADVANTAGE Care Teams Lead Electrician Relationship Specialty Start Date End Date Keanu Ma MD [address] INTER[employer] MEDICINE [place], [place] [id number] PCP - General Internal Medicine 11/24/20 Gregory He III, MD Referring Physician Sports Medicine 07/03/17 Anand Rao MD [address] [place] [address] Referring Physician Orthopedic Surgery 09/09/17
[2024-06-22 03:22] VITALS: BP 106/82; PULSE 72; RESP 18; TEMP 36.8; O2SAT 99
[2024-06-22] MEDS: ONDANSETRON HCL ODT 4 MG TABLET PO (03:53)
[2024-06-22] MEDS: MORPHINE SULFATE INJ (*CRX) 10 MG/ML AMP 6 MG IM (03:53)
--- OUTSIDE RECORDS SUMMARY | 2024-06-22 03:57 | XMS_ITS | Clinical Summary ---
Author Organization [facility] Address [address] [place] [address] Care Team Providers Care Salesperson Household Appliances Name Role Phone Ilana Almaraz MD Primary Care Provide r Source Comments [facility],non-owned Affiliates and Associated Physician Practices is amultiple site organization consisting of ambulatory clinics and hospital sitesin [place], [place] and [place]. This disclosure is being madepursuant to the Care Everywhere program and may not contain all information available regarding this patient. Last updated 17.[facility] Allergies No known active allergies Medications * [...] TABS Take 1 tablet by mouth Active Friendship-3 Fatty Acids (FISH OIL) 500 MG capsule [...] on file Legal Sex Female 5:47 AM PRODUCTS MECHANICAL DESIGN ENGINEER Gender Identity Not on file Sexual Orientation [...] topic Insurance [employer] Care Teams Salesperson Household Appliances Relationship Specialty Start Date End Date Ilana Almaraz MD PCP - General Family Medicine 07/13/17
--- OUTSIDE RECORDS SUMMARY | 2024-06-22 03:57 | XMS_ITS | Clinical Summary ---
Author Organization [facility] Address [address] [place] [address] Care Team Providers Care Casino Floor Person Name Role Phone Unavailable Primary Care Provider [...] CONVERSION Comment: Result Comment: Test Performed at: [facility] [address] [place] [address] MATA THOMPSON DO,MPH 07/30/2015 7:37 AM CDT 07/30/2015 7:37 AM CDT Narrative [facility] TO EP[facility] CONVERSION - 07/31/2015 6:26 AM CDT Result Communication: Mail Results to Patient us Nadia Guthrie NP LABORATORY Final Result [facility] TO [facility] CONVERSION from Last 3 Months or Most Recently Relevant to Health Maintenance
--- OUTSIDE RECORDS SUMMARY | 2024-06-22 03:57 | XMS_ITS | Encounter Summary ---
Author Organization [facility] Address [address] [place] [address] Care Team Providers Care Business Banking Manager Name Role Phone Carl Garg MD Primary Care Provider [phone] Encounter Details Date Type Department Care Team (Late st Contact Info) Description 09/12/2001 Outpatient Historical [facility] Family Medicine [address] [place] [address] [phone] Tate Everett DO NO ADDRESS ON FILE Social History Tobacco Use Types Packs/Day Years Used Date Smoking Tobacco: Never Assessed Comments Unknown Sex and Gender Information Value Date Recorded Sex Assigned at Not on file Legal Sex Female 4:41 AM OPTICAL STORE MANAGER Gender Identity Not on file Sexual Orientation Not on file documented as of this encounter Plan of Treatment Not on file documented as of this encounter Visit Diagnoses Not on filedocumented in this encounter Care Teams Business Banking Manager Relationship Specialty Start Date End Date Carl Garg MD [facility] [place] [address] PCP - General Internal Medicine 02/23/18 documented as of this encounter
--- OUTSIDE RECORDS SUMMARY | 2024-06-22 03:57 | XMS_ITS | Encounter Summary ---
Author Organization [facility] Address [address] [place] [address] Care Team Providers Care Community Service Technician Name Role Phone Carl Garg MD Primary Care Provider [phone] Encounter Details Date Type Department Care Team (Late st Contact Info) Description 05/09/2000 [facility] Family Medicine [address] [place] [address] [phone] Tate Everett DO NO ADDRESS ON FILE Social History Tobacco Use Types Packs/Day Years Used Date Smoking Tobacco: Never Assessed Comments Unknown Sex and Gender Information Value Date Recorded Sex Assigned at Not on file Legal Sex Female 4:41 AM LIBRARY ATTENDANT Gender Identity Not on file Sexual Orientation Not on file documented as of this encounter Plan of Treatment Not on file documented as of this encounter Visit Diagnoses Not on filedocumented in this encounter Care Teams Community Service Technician Relationship Specialty Start Date End Date Carl Garg MD [facility] [place] [address] PCP - General Internal Medicine 02/23/18 documented as of this encounter
--- OUTSIDE RECORDS SUMMARY | 2024-06-22 03:57 | XMS_ITS | Referral Summary ---
Author Organization [facility] Address [address] [place] [address] Care Team Providers Care Structural Shop Helper Name Role Phone Neri STEVENS MD, Gregory Amor Unavailable [phone] Anand Rao MD Unavailable [phone] Keanu Ma MD Primary Care Provider [phone] Allergies No known active allergies Medications ascorbic [...] (10/25/2017): Added automatically from request for surgery [id number] Chronic left shoulder pain 05/23/2017 Immunizations Immunization [...] on file Legal Sex Female 8:06 AM CERTIFIED OPHTHALMIC SURGICAL ASSISTANT Gender Identity Not on file Sexual Orientation Not on file Last Filed Vital Signs Vital Sign Reading Time Taken Comments Blood Pressure 112/68 10/23/2020 1:06 PM CDT Pulse 79 10/23/2020 1:06 PM CDT Temperature 36.8 C (98.3 F) 01/28/2022 4:29 PM CERTIFIED OPHTHALMIC SURGICAL ASSISTANT Respiratory Rate 19 11/07/2017 5:45 PM CDT Oxygen Saturation 94% 11/07/2017 5:45 PM CDT Inhaled Oxygen Concentration - - Weight 54.4 kg (120 lb) 01/28/2022 4:29 PM CERTIFIED OPHTHALMIC SURGICAL ASSISTANT Height 162.6 cm (5' 4 ) 10/23/2020 1:06 PM CDT Body Mass Index 20.6 10/23/2020 1:06 PM CDT Plan of Treatment Not on file Insurance [id number] MEDICARE ADVANTAGE [facility] MEDICARE ADVANTAGE Care Teams Structural Shop Helper Relationship Specialty Start Date End Date Keanu Ma MD [address] INTERNAL MEDICINE [place], [place] [id number] PCP - General Internal Medicine 11/24/20 Gregory He III, MD Referring Physician Sports Medicine 07/03/17 Anand Rao MD [address] [place] [address] Referring Physician Orthopedic Surgery 09/09/17
--- OUTSIDE RECORDS SUMMARY | 2024-06-22 03:57 | XMS_ITS | Encounter Summary ---
Author Organization [facility] Address [address] [place] [address] Care Team Providers Care Teller Vault Name Role Phone Carl Garg MD Primary Care Provider [phone] Encounter Details Date Type Department Care Team (Late st Contact Info) Description 09/25/1999 Outpatient Historical [facility] Family Medicine [address] [place] [address] [phone] Tate Everett DO NO ADDRESS ON FILE Social History Tobacco Use Types Packs/Day Years Used Date Smoking Tobacco: Never Assessed Comments Unknown Sex and Gender Information Value Date Recorded Sex Assigned at Not on file Legal Sex Female 4:41 AM SAMPLER TESTER Gender Identity Not on file Sexual Orientation Not on file documented as of this encounter Plan of Treatment Not on file documented as of this encounter Visit Diagnoses Not on filedocumented in this encounter Care Teams Teller Vault Relationship Specialty Start Date End Date Carl Garg MD [facility] [place] [address] PCP - General Internal Medicine 02/23/18 documented as of this encounter
--- OUTSIDE RECORDS SUMMARY | 2024-06-22 03:57 | XMS_ITS | Encounter Summary ---
Author Organization [facility] Address [address] [place] [address] Care Team Providers Care Operation Supervisor Name Role Phone Carl Garg MD Primary Care Provider [phone] Encounter Details Date Type Department Care Team (Late st Contact Info) Description 12/15/1998 [facility]patient [facility] Family Medicine [address] [place] [address] [phone] Tate Everett DO NO ADDRESS ON FILE Social History Tobacco Use Types Packs/Day Years Used Date Smoking Tobacco: Never Assessed Comments Unknown Sex and Gender Information Value Date Recorded Sex Assigned at Not on file Legal Sex Female 4:41 AM AUTOMATION CONTROL TECHNICIAN Gender Identity Not on file Sexual Orientation Not on file documented as of this encounter Plan of Treatment Not on file documented as of this encounter Visit Diagnoses Not on filedocumented in this encounter Care Teams Operation Supervisor Relationship Specialty Start Date End Date Carl Garg MD [facility] [place] [address] PCP - General Internal Medicine 02/23/18 documented as of this encounter
--- OUTSIDE RECORDS SUMMARY | 2024-06-22 03:57 | XMS_ITS | Encounter Summary ---
Author Organization [facility] Address [address] [place] [address] Care Team Providers Care Patch Sander Name Role Phone Carl Garg MD Primary Care Provider [phone] Encounter Details Date Type Department Care Team (Late st Contact Info) Description 07/09/1998 Outpatient Historical [facility] Family Medicine [address] [place] [address] [phone] Tate Everett DO NO ADDRESS ON FILE Social History Tobacco Use Types Packs/Day Years Used Date Smoking Tobacco: Never Assessed Comments Unknown Sex and Gender Information Value Date Recorded Sex Assigned at Not on file Legal Sex Female 4:41 AM SENIOR INSTRUCTOR Gender Identity Not on file Sexual Orientation Not on file documented as of this encounter Plan of Treatment Not on file documented as of this encounter Visit Diagnoses Not on filedocumented in this encounter Care Teams Patch Sander Relationship Specialty Start Date End Date Carl Garg MD [facility] [place] [address] PCP - General Internal Medicine 02/23/18 documented as of this encounter
--- OUTSIDE RECORDS SUMMARY | 2024-06-22 03:57 | XMS_ITS | Encounter Summary ---
Author Organization [facility] Address [address] [place] [address] Care Team Providers Care Sprayer Leather Name Role Phone Carl Garg MD Primary Care Provider [phone] Encounter Details Date Type Department Care Team (Late st Contact Info) Description 04/02/1998 Outpatient Historical [facility] Family Medicine [address] [place] [address] [phone] Tate Everett DO NO ADDRESS ON FILE Social History Tobacco Use Types Packs/Day Years Used Date Smoking Tobacco: Never Assessed Comments Unknown Sex and Gender Information Value Date Recorded Sex Assigned at Not on file Legal Sex Female 4:41 AM MANAGER SURGICAL Gender Identity Not on file Sexual Orientation Not on file documented as of this encounter Plan of Treatment Not on file documented as of this encounter Visit Diagnoses Not on filedocumented in this encounter Care Teams Sprayer Leather Relationship Specialty Start Date End Date Carl Garg MD [facility] [email or web address] [address] PCP - General Internal Medicine 02/23/18 documented as of this encounter
--- OUTSIDE RECORDS SUMMARY | 2024-06-22 03:57 | XMS_ITS | Clinical Summary ---
Author Organization [facility] Address [address] [place] [address] Care Team Providers Care Artist Blacksmith Name Role Phone Neri STEVENS MD, Gregory Amor Unavailable [phone] Anand Rao MD Unavailable [phone] Keanu Ma MD Primary Care Provider Allergies No known active allergies Medications ascorbic [...] (10/25/2017): Added automatically from request for surgery [id number] Chronic left shoulder pain 05/23/2017 Immunizations Immunization [...] on file Legal Sex Female 8:06 AM CAPACITY PLANNING ANALYST Gender Identity Not on file Sexual Orientation Not on file Obstetrics History Last Filed Vital Signs Vital Sign Reading Time Taken Comments Blood Pressure 112/68 10/23/2020 1:06 PM CDT Pulse 79 10/23/2020 1:06 PM CDT Temperature 36.8 C (98.3 F) 01/28/2022 4:29 PM CAPACITY PLANNING ANALYST Respiratory Rate 19 11/07/2017 5:45 PM CDT Oxygen Saturation 94% 11/07/2017 5:45 PM CDT Inhaled Oxygen Concentration - - Weight 54.4 kg (120 lb) 01/28/2022 4:29 PM CAPACITY PLANNING ANALYST Height 162.6 cm (5' 4 ) 10/23/2020 [...] Insurance MEDICARE ADVANTAGE MEDICARE ADVANTAGE Care Teams Artist Blacksmith Relationship Specialty Start Date End Date Keanu Ma MD [address] [place] [address] PCP - General Internal Medicine 11/24/20 Gregory He III, MD Referring Physician Sports Medicine 07/03/17 Anand Rao MD [address] [place] [address] Referring Physician Orthopedic Surgery 09/09/17
--- OUTSIDE RECORDS SUMMARY | 2024-06-22 03:57 | XMS_ITS | Encounter Summary ---
Author Organization [facility] Address [address] [place] [address] Care Team Providers Care Guest History Clerk Name Role Phone Carl Garg MD Primary Care Provider [phone] Encounter Details Date Type Department Care Team (Late st Contact Info) Description 12/13/2002 [facility] Family Medicine [address] [place] [address] [phone] Tate Everett DO NO ADDRESS ON FILE Social History Tobacco Use Types Packs/Day Years Used Date Smoking Tobacco: Never Assessed Comments Unknown Sex and Gender Information Value Date Recorded Sex Assigned at Not on file Legal Sex Female 4:41 AM TRAFFIC AND TRANSPORT PLANNER Gender Identity Not on file Sexual Orientation Not on file documented as of this encounter Plan of Treatment Not on file documented as of this encounter Visit Diagnoses Not on filedocumented in this encounter Care Teams Guest History Clerk Relationship Specialty Start Date End Date Carl Garg MD [facility] [place] [address] PCP - General Internal Medicine 02/23/18 documented as of this encounter
--- OUTSIDE RECORDS SUMMARY | 2024-06-22 03:57 | XMS_ITS | Clinical Summary ---
Author Organization [facility] Address [address] [place] [address] Care Team Providers Care Room Cooler Installer Name Role Phone Carl Garg MD Primary Care Provider Allergies No known active allergies Medications cholecalciferol , vitamin D3, 1,000 unit Take by mouth. Active multivitamin (DAILY-ANA) tablet Take 1 Tablet by mouth daily. Active lidocaine (LIDODERM) 5 % Adhesive Patch, Medicated Apply 1 Patch to affected area every 24 hours. 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
--- OUTSIDE RECORDS SUMMARY | 2024-06-22 03:57 | XMS_ITS | Encounter Summary ---
Author Organization [facility] Address [address] [place] [address] Care Team Providers Care Dictating Transcribing Machine Servicer Name Role Phone Carl Garg MD Primary Care Provider [phone] Encounter Details Date Type Department Care Team (Late st Contact Info) Description 07/25/2002 Outpatient [facility] Family Medicine [address] [place] [address] [phone] Tate Everett DO NO ADDRESS ON FILE Social History Tobacco Use Types Packs/Day Years Used Date Smoking Tobacco: Never Assessed Comments Unknown Sex and Gender Information Value Date Recorded Sex Assigned at Not on file Legal Sex Female 4:41 AM BUSINESS INTELLIGENCE REPORTING ANALYST Gender Identity Not on file Sexual Orientation Not on file documented as of this encounter Plan of Treatment Not on file documented as of this encounter Visit Diagnoses Not on filedocumented in this encounter Care Teams Dictating Transcribing Machine Servicer Relationship Specialty Start Date End Date Carl Garg MD [facility] [place] [address] PCP - General Internal Medicine 02/23/18 documented as of this encounter
--- OUTSIDE RECORDS SUMMARY | 2024-06-22 03:57 | XMS_ITS | Encounter Summary ---
Author Organization [facility] Address [address] [place] [address] Care Team Providers Care Evs Tech Name Role Phone Carl Garg MD Primary Care Provider [phone] Encounter Details Date Type Department Care Team (Late st Contact Info) Description 01/25/2002 [facility] Family Medicine [address] [place] [address] [phone] Tate Everett DO NO ADDRESS ON FILE Social History Tobacco Use Types Packs/Day Years Used Date Smoking Tobacco: Never Assessed Comments Unknown Sex and Gender Information Value Date Recorded Sex Assigned at Not on file Legal Sex Female 4:41 AM PHOTO OPTICS TECHNICIAN Gender Identity Not on file Sexual Orientation Not on file documented as of this encounter Plan of Treatment Not on file documented as of this encounter Visit Diagnoses Not on filedocumented in this encounter Care Teams Evs Tech Relationship Specialty Start Date End Date Carl Garg MD [facility] [place] [address] PCP - General Internal Medicine 02/23/18 documented as of this encounter
--- OUTSIDE RECORDS SUMMARY | 2024-06-22 03:57 | XMS_ITS | Encounter Summary ---
Author Organization [facility] Address [address] [place] [address] Care Team Providers Care Dredge Pumper Name Role Phone Carl Garg MD Primary Care Provider [phone] Encounter Details Date Type Department Care Team (Late st Contact Info) Description 07/21/2000 Outpatient [facility] Family Medicine [address] [place] [address] [phone] Tate Everett DO NO ADDRESS ON FILE Social History Tobacco Use Types Packs/Day Years Used Date Smoking Tobacco: Never Assessed Comments Unknown Sex and Gender Information Value Date Recorded Sex Assigned at Not on file 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
--- OUTSIDE RECORDS SUMMARY | 2024-06-22 03:57 | XMS_ITS | Encounter Summary ---
Author Organization [facility] Address [address] [place] [address] Care Team Providers Care Movie Producer Name Role Phone Carl Garg MD Primary Care Provider [phone] Encounter Details Date Type Department Care Team (Late st Contact Info) Description 06/03/1998 Outpatient [facility] Family Medicine [address] [place] [address] [phone] Tate Everett DO NO ADDRESS ON FILE Social History Tobacco Use Types Packs/Day Years Used Date Smoking Tobacco: Never Assessed Comments Unknown Sex and Gender Information Value Date Recorded Sex Assigned at Not on file 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
--- OUTSIDE RECORDS SUMMARY | 2024-06-22 03:57 | XMS_ITS | Encounter Summary ---
Author Organization [facility] Address [address] [place] [address] Care Team Providers Care Customer Resolution Specialist Name Role Phone Carl Garg MD Primary Care Provider [phone] Encounter Details Date Type Department Care Team (Late st Contact Info) Description 09/11/1998 Outpatient Historical [facility] Family Medicine [address] [place] [address] [phone] Tate Everett DO NO ADDRESS ON FILE Social History Tobacco Use Types Packs/Day Years Used Date Smoking Tobacco: Never Assessed Comments Unknown Sex and Gender Information Value Date Recorded Sex Assigned at Not on file 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 [place] [address] PCP - General Internal Medicine 02/23/18 documented as of this encounter
--- OUTSIDE RECORDS SUMMARY | 2024-06-22 03:57 | XMS_ITS | Encounter Summary ---
Author Organization [facility] Address [address] [place] [address] Care Team Providers Care Manager Meat Name Role Phone Carl Garg MD Primary Care Provider [phone] Encounter Details Date Type Department Care Team (Late st Contact Info) Description 04/19/2002 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
--- OUTSIDE RECORDS SUMMARY | 2024-06-22 03:57 | XMS_ITS | Encounter Summary ---
Author Organization [facility] Address 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 [place] [address] PCP - General Internal Medicine 02/23/18 documented as of this encounter
--- OUTSIDE RECORDS SUMMARY | 2024-06-22 03:57 | XMS_ITS | Encounter Summary ---
Author Organization [facility] Address 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 [place] [address] PCP - General Internal Medicine 02/23/18 documented as of this encounter
--- OUTSIDE RECORDS SUMMARY | 2024-06-22 03:57 | XMS_ITS | Encounter Summary ---
Author Organization [facility] Address [address] [place] [address] Care Team Providers Care Burning Plant Operator Name Role Phone Carl Garg MD Primary Care Provider Encounter Details Date Type Department Care Team (Late st Contact Info) Description 05/01/2001 [facility] Family Medicine [address] [place] [address] [phone] Tate Everett DO NO ADDRESS ON FILE Social History Tobacco Use Types Packs/Day Years Used Date Smoking Tobacco: Never Assessed Comments Unknown Sex and Gender Information Value Date Recorded Sex Assigned at Not on file 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
--- OUTSIDE RECORDS SUMMARY | 2024-06-22 03:57 | XMS_ITS | Encounter Summary ---
Author Organization [facility] Address [address] [place] [address] Care Team Providers Care Cost Recorder Name Role Phone Carl Garg MD Primary Care Provider [phone] Encounter Details Date Type Department Care Team (Late st Contact Info) Description 04/21/1998 [facility]patient [facility] Family Medicine [address] [place] [address] [phone] Tate Everett DO NO ADDRESS ON FILE Social History Tobacco Use Types Packs/Day Years Used Date Smoking Tobacco: Never Assessed Comments Unknown Sex and Gender Information Value Date Recorded Sex Assigned at Not on file 

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
== END 2024-06-22 05:53 | disposition home or self-care (01) ==
PROVIDERS: Emergency Provider Family Medicine; PCP Family Medicine
DX: M54.41 Lumbago with sciatica, right side (principal); E78.5 Hyperlipidemia, unspecified; F90.9 Attention-deficit hyperactivity disorder, unspecified type; G89.29 Other chronic pain; M54.9 Dorsalgia, unspecified; F41.8 Other specified anxiety disorders; Z87.891 Personal history of nicotine dependence
CPT/HCPCS: 72100; 96372; 99283; A9270; J2270

== ENCOUNTER 2024-08-20 09:04 | Outpatient (CLI) | payer MEDICARE, SELFPAY ==
--- NOTE | ~2024-08-20 | MM_ITS ---
EXAMINATION: MM screening [facility] BI w davy HISTORY: Screening TECHNIQUE: Craniocaudal and mediolateral oblique 3-D tomosynthesis images were obtained and synthetic 2-D images were generated. CAD analysis was submitted and interpreted. COMPARISON: Comparison to multiple prior studies sequentially, with oldest reviewed study dated 06/03. BREAST PARENCHYMAL COMPOSITION: Not dense: There are scattered areas of fibroglandular density. FINDINGS: There is no evidence of suspicious mass, calcification, or architectural distortion to sugg est malignancy in either breast. There has been no suspicious interval change. IMPRESSION: 1. No mammographic evidence of malignancy. 2. Recommend routine screening mammography in one year. BI-RADS Category 1: Negative Reviewed, dictated and finalized at location A.
--- OUTSIDE RECORDS SUMMARY | 2024-08-20 09:17 | XMS_ITS | Encounter Summary ---
Author Organization [facility] Address [address] [place] [address] Care Team Providers Care Certified Nurse Name Role Phone Carl Garg MD Primary Care Provider [phone] Encounter Details Date Type Department Care Team (Late st Contact Info) Description 07/09/1998 Outpatient Historical [facility] Family Medicine [address] [place] [address] [phone] Tate Everett DO NO ADDRESS ON FILE Social History Tobacco Use Types Packs/Day Years Used Date Smoking Tobacco: Never Assessed Comments Unknown Sex and Gender Information Value Date Recorded Sex Assigned at Not on file 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
--- OUTSIDE RECORDS SUMMARY | 2024-08-20 09:17 | XMS_ITS | Encounter Summary ---
Author Organization [facility] Address [address] [place] [address] Care Team Providers Care Worship Director Name Role Phone Carl Garg MD Primary Care Provider [phone] Encounter Details Date Type Department Care Team (Late st Contact Info) Description 05/09/2000 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
--- OUTSIDE RECORDS SUMMARY | 2024-08-20 09:17 | XMS_ITS | Encounter Summary ---
Author Organization [facility] Address [address] [place] [address] Care Team Providers Care Patient Care Technician Instructor Name Role Phone Carl Garg MD Primary Care Provider [phone] Encounter Details Date Type Department Care Team (Late st Contact Info) Description 10/26/2002 Outpatient Historical [facility] Family Medicine [address] [place] [address] [phone] Tate Everett DO NO ADDRESS ON FILE Social History Tobacco Use Types Packs/Day Years Used Date Smoking Tobacco: Never Assessed Comments Unknown Sex and Gender Information Value Date Recorded Sex Assigned at Not on file 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
--- OUTSIDE RECORDS SUMMARY | 2024-08-20 09:17 | XMS_ITS | Patient Health Record ---
Author Organization [facility] Address [address] [place] [address] Care Team Providers Care Account Representative Name Role Phone Adis Wynn Unavailable [phone] Reason For Referral No Information Medications Medication SIG (Take, Route, Frequency, Duration) Notes Start Date End Date Status Amphetamine-Dextroamphet ER 20 MG 1 capsule in the morning Orally Once a day Active ALPRAZolam 0.5 MG 1 tablet Orally daily Active Social History Tobacco Use: Social History Observation Description Date Details (start date - stop date) Former Smoker NA - NA Tobacco Use/Smoking Question Answer Notes Are you a former smoker How long has it been since you last smoked? 5-10 years Alcohol Screen (Audit-C) Question Answer Notes Did you have a drink containing alcohol in the p ast year? Yes Points 0 Interpretation Negative Problems Problem Type SNOMED Code ICD Code Onset Dates Problem Status W/U Status Risk Notes Problem Chronic pain (75793821) Other chronic pain (G89.29) Active confirmed Problem Chronic pain syndrome (891600272) Chronic pain syndrome (G89.4) Active confirmed Problem Shoulder joint pain (558936335) Pain in left shoulder (M25.512) Active confirmed Problem Thoracic radiculopathy (04589683) Radiculopathy, thoracic region (M54.14) Active confirmed Problem Neuralgia (31695235) Neuralgia and neuritis, unspecified (M79.2) Active confirmed Problem Muscle pain (01107836) Myalgia, other site (M79.18) Active confirmed 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
--- OUTSIDE RECORDS SUMMARY | 2024-08-20 09:17 | XMS_ITS | Encounter Summary ---
Author Organization [facility] Address [address] [place] [address] Care Team Providers Care Criminal Justice Instructor Name Role Phone Carl Garg MD Primary Care Provider [phone] Encounter Details Date Type Department Care Team (Late st Contact Info) Description 09/12/2001 Outpatient Historical [facility] Family Medicine [address] [place] [address] [phone] Tate Everett DO NO ADDRESS ON FILE Social History Tobacco Use Types Packs/Day Years Used Date Smoking Tobacco: Never Assessed Comments Unknown Sex and Gender Information Value Date Recorded Sex Assigned at Not on file Legal Sex Female 4:41 AM BANKING SERVICES ADVISOR Gender Identity Not on file Sexual Orientation Not on file documented as of this encounter Plan of Treatment Not on file documented as of this encounter Visit Diagnoses Not on filedocumented in this encounter Care Teams Criminal Justice Instructor Relationship Specialty Start Date End Date Carl Garg MD [facility] [place] [address] PCP - General Internal Medicine 02/23/18 documented as of this encounter
--- OUTSIDE RECORDS SUMMARY | 2024-08-20 09:17 | XMS_ITS | Encounter Summary ---
Author Organization [facility] Address [address] [place] [address] Care Team Providers Care Rivet Passer Name Role Phone Carl Garg MD Primary Care Provider [phone] Encounter Details Date Type Department Care Team (Late st Contact Info) Description 07/21/2000 [facility]patient [facility] Family Medicine [address] [place] [address] [phone] Tate Everett DO NO ADDRESS ON FILE Social History Tobacco Use Types Packs/Day Years Used Date Smoking Tobacco: Never Assessed Comments Unknown Sex and Gender Information Value Date Recorded Sex Assigned at Not on file Legal Sex Female 4:41 AM 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
--- OUTSIDE RECORDS SUMMARY | 2024-08-20 09:17 | XMS_ITS | Encounter Summary ---
Author Organization [facility] Address [address] [place] [address] Care Team Providers Care Teacher Hearing Impaired Name Role Phone Carl Garg MD Primary Care Provider [phone] Encounter Details Date Type Department Care Team (Late st Contact Info) Description 07/25/2002 Outpatient [facility] Family Medicine [address] [place] [address] [phone] Tate Everett DO NO ADDRESS ON FILE Social History Tobacco Use Types Packs/Day Years Used Date Smoking Tobacco: Never Assessed Comments Unknown Sex and Gender Information Value Date Recorded Sex Assigned at Not on file Legal Sex Female 4:41 AM CHILD CARE ASSOCIATE Gender Identity Not on file Sexual Orientation Not on file documented as of this encounter Plan of Treatment Not on file documented as of this encounter Visit Diagnoses Not on filedocumented in this encounter Care Teams Teacher Hearing Impaired Relationship Specialty Start Date End Date Carl Garg MD [facility] [place] [address] PCP - General Internal Medicine 02/23/18 documented as of this encounter
--- OUTSIDE RECORDS SUMMARY | 2024-08-20 09:17 | XMS_ITS | Encounter Summary ---
Author Organization [facility] Address [address] [place] [address] Care Team Providers Care Dean Of Instruction Name Role Phone Carl Garg MD Primary Care Provider [phone] Encounter Details Date Type Department Care Team (Late st Contact Info) Description 01/25/2002 Outpatient [facility] Family Medicine [address] [place] [address] [phone] Tate Everett DO NO ADDRESS ON FILE Social History Tobacco Use Types Packs/Day Years Used Date Smoking Tobacco: Never Assessed Comments Unknown Sex and Gender Information Value Date Recorded Sex Assigned at Not on file Legal Sex Female 4:41 AM SCHEDULING ADMINISTRATOR Gender Identity Not on file Sexual Orientation Not on file documented as of this encounter Plan of Treatment Not on file documented as of this encounter Visit Diagnoses Not on filedocumented in this encounter Care Teams Dean Of Instruction Relationship Specialty Start Date End Date Carl Garg MD [facility] [place] [address] PCP - General Internal Medicine 02/23/18 documented as of this encounter
--- OUTSIDE RECORDS SUMMARY | 2024-08-20 09:17 | XMS_ITS | Clinical Summary ---
Author Organization [facility] Address [address] [place] [address] Care Team Providers Care Slot Machine Mechanic Name Role Phone Unavailable Primary Care Provider Unavailabl e Allergies No known active allergies Medications ALPRAZolam (XANAX) 0.5 mg tablet 1 (one) time each day at the same time. Active busPIRone (BUSPAR) 10 mg tablet buspirone 10 mg tablet Active lamoTRIgine (LaMICtal) 150 mg tablet 4 Active traZODone (DESYREL) 100 mg tablet 4 Active rosuvastatin (CRESTOR) 10 mg tablet 4 Active Active Problems Problem Noted Date Diagnosed Date Bipolar disorder, unspecified 01/22/2018 Major depressive disorder, recurrent episode, mo derate 01/22/2018 Irritable bowel syndrome 01/22/2018 Painful orthopaedic hardware 10/25/2017 Overview (05/19/2023): Added automatically from request for surgery [id number] Social History Tobacco Use Types Packs/Day Years Used Date Smoking Tobacco: Never Assessed Comments Unknown Sex and Gender Information Value Date Recorded Sex Assigned at Not on file Legal Sex Female 6:42 AM PDT Gender Identity Not on file Sexual Orientation Not on file Plan of Treatment Health Maintenance Due Date Last Done Comments Dental Oral Exam 1963 Dental Prophylaxis 1963 Dental X-Ray: Bitewings 1963 Dental X-Ray: Full Mouth 1963 Dental X-Ray: Panoramic 05/23/2026 05/23/2023 Insurance
--- OUTSIDE RECORDS SUMMARY | 2024-08-20 09:17 | XMS_ITS | Encounter Summary ---
Author Organization [facility] Address [address] [place] [address] Care Team Providers Care Second Helper Name Role Phone Carl Garg MD Primary Care Provider [phone] Encounter Details Date Type Department Care Team (Late st Contact Info) Description 09/11/1998 Outpatient Historical [facility] Family Medicine [address] [place] [address] [phone] Tate Everett DO NO ADDRESS ON FILE Social History Tobacco Use Types Packs/Day Years Used Date Smoking Tobacco: Never Assessed Comments Unknown Sex and Gender Information Value Date Recorded Sex Assigned at Not on file Legal Sex Female 4:41 AM LEARNING SUPPORT TEACHER Gender Identity Not on file Sexual Orientation Not on file documented as of this encounter Plan of Treatment Not on file documented as of this encounter Visit Diagnoses Not on filedocumented in this encounter Care Teams Second Helper Relationship Specialty Start Date End Date Carl Garg MD [facility] [place] [address] PCP - General Internal Medicine 02/23/18 documented as of this encounter
--- OUTSIDE RECORDS SUMMARY | 2024-08-20 09:17 | XMS_ITS | Encounter Summary ---
Author Organization [facility] Address [address] [place] [address] Care Team Providers Care Agriscience Technology Instructor Name Role Phone Unavailable Primary Care Provider Unavailabl e Prior Encounters Date Type Department Care Team Description 05/19/2023 Travel 05/19/2023 12:45 PM CDT Office Visit [facility] [address] [place] [address] Kacey Mcginnis DDS Plan of Treatment Not on file Procedures Procedure Name Priority Date/Time Associated Diagnosis Comments OS CONSULT Routine 05/19/2023 12:45 PM CDT Visit Diagnoses Not on file Insurance PPO
--- OUTSIDE RECORDS SUMMARY | 2024-08-20 09:17 | XMS_ITS | Patient Health Record ---
Author Organization Ángel Duff DO/ [facility] Address [address] [address] Care Team Providers Care Customs And Border Protection Inspector Name Role Phone Ángel Duff Primary Care Provider Reason For Referral No Information Immunizations Vaccine Route Administration Date Status Comme nts Td (adult) Unknown 08/24/2010 Administered Plan Of Treatment No Information Insurance Providers Payer Name Payer Address Payer Phone Subscriber Number Group Number Insured Name Patient Relationship to Insured Coverage Start Date Coverage End Date Blue Cross Blue Shield [address] [place] [address] [id number] Clementine Escobar Self - patient is the insured
--- OUTSIDE RECORDS SUMMARY | 2024-08-20 09:17 | XMS_ITS | Encounter Summary ---
Author Organization [facility] Address [address] [place] [address] Care Team Providers Care Military Professional Name Role Phone Carl Garg MD Primary Care Provider [phone] Encounter Details Date Type Department Care Team (Late st Contact Info) Description 08/12/2000 Outpatient Historical [facility] Family Medicine [address] [place] [phone] RobertctLiliane munoz Social History Tobacco Use Types Packs/Day Years Used Date Smoking Tobacco: Never Assessed Comments Unknown Sex and Gender Information Value Date Recorded Sex Assigned at Not on file Legal Sex Female 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
--- OUTSIDE RECORDS SUMMARY | 2024-08-20 09:17 | XMS_ITS | Encounter Summary ---
Author Organization [facility] Address [address] [place] [address] Care Team Providers Care Residency Program Coordinator Name Role Phone Carl Garg MD Primary Care Provider [phone] Encounter Details Date Type Department Care Team (Late st Contact Info) Description 12/15/1998 Outpatient Historical [facility] Family Medicine [address] [place] [address] [phone] Tate Everett DO NO ADDRESS ON FILE Social History Tobacco Use Types Packs/Day Years Used Date Smoking Tobacco: Never Assessed Comments Unknown Sex and Gender Information Value Date Recorded Sex Assigned at Not on file Legal Sex Female 4:41 AM BLOCK CAPTAIN Gender Identity Not on file Sexual Orientation Not on file documented as of this encounter Plan of Treatment Not on file documented as of this encounter Visit Diagnoses Not on filedocumented in this encounter Care Teams Residency Program Coordinator Relationship Specialty Start Date End Date Carl Garg MD [facility] [employer] [address] PCP - General Internal Medicine 02/23/18 documented as of this encounter
--- OUTSIDE RECORDS SUMMARY | 2024-08-20 09:17 | XMS_ITS | Encounter Summary ---
Author Organization [facility] Address [address] [place] [address] Care Team Providers Care Aerospace Quality Engineer Name Role Phone Carl Garg MD Primary Care Provider [phone] Encounter Details Date Type Department Care Team (Late st Contact Info) Description 12/13/2002 [facility]patient [facility] Family Medicine [address] [place] [address] [phone] Tate Everett DO NO ADDRESS ON FILE Social History Tobacco Use Types Packs/Day Years Used Date Smoking Tobacco: Never Assessed Comments Unknown Sex and Gender Information Value Date Recorded Sex Assigned at Not on file Legal Sex Female 4:41 AM GLOBAL CLINICAL LEADER Gender Identity Not on file Sexual Orientation Not on file documented as of this encounter Plan of Treatment Not on file documented as of this encounter Visit Diagnoses Not on filedocumented in this encounter Care Teams Aerospace Quality Engineer Relationship Specialty Start Date End Date aCrl Garg MD [facility] [place] [address] PCP - General Internal Medicine 02/23/18 documented as of this encounter
--- OUTSIDE RECORDS SUMMARY | 2024-08-20 09:17 | XMS_ITS | Data Portability ---
Author Organization [facility] Address [address] [place] [address] Assessment No assessment recorded. Plan of Treatment Reminders Order Date Submit Date Provider Last Modified By Organization Details Last Modified Time Details Appointments None recorded. Lab lipid panel, serum 2015 016 [facility], [address] [facility], [address], [place], [address], 6 15:08:27 HIV (1+2) Ab screen, serum 2015 016 [facility], [address] [facility], [address], [place], [address], 6 15:08:29 urinalysis, complete 2015 016 [facility], [address] [facility], [address], [place], [address], 6 15:08:29 Referral psychiatris t referral 2015 016 [email or web address] Not available 6 08:30:06 Procedures None recorded. Surgeries None recorded. Imaging LDCT, chest, for lung cancer screening 2015 016 [email or web address] Not available 6 15:08:29 Medication Orders None recorded. Patient TargetsNo targets recorded. Patient Instructions Encounter Date Encounter Id Patient Instructions Last Modified By Organization Details Last Modified Time 11/12/2015 [id number] Lab results were discussed in detail [email or web address] [...] Details Recorded Time Attention deficit hyperactivity disorder 380936575 Active Barbara Berg MD Attn: Anurag reis,[address] [facility], [place], [address], [facility] 6 13:53:39 Tobacco dependence in remission 113277293 Active Barbara Berg MD Attn: Anurag reis,[address] [place], [address], [facility] 6 13:53:39 Excessive sweating 88506217 Active Barbara Berg MD Attn: Anurag reis,[address] [facility], [place], [address], [facility] 6 13:53:39 Problem Notes None recorded. Procedures Surgical History Date Name Laterality Status Provider Name and Address Organization Details Recorded Time Eye Surgery completed Nathaniel Amador RN [facility] 11/12/2015 10:33:48 Other completed ARIS Ulloa [facility] 11/12/2015 10:36:00 Other completed Nathaniel Amador RN [facility] 11/12/2015 10:36:00 Imaging Results None recorded. Procedure [...] Not Available Not Available Not Available Fluvirin 7080-3241 45 mcg (15 mcg x 3)/0.5 mL intramuscular suspension active Not Available Not Available N ot Available Vitals Date Recorded Body weight Body temperature Body height Heart rate Respiratory rate Body mass index (BMI) Systolic And Diastolic Provider Name and Address Organization Details Last Updated DateTime 6 87548.5 01722 g 97.7 [degF] 162.56 cm 80 /min 18 /min 25.5 kg/m2 128/80 mm[Hg] Nathaniel Amador RN [facility] 6 10:33:48 Social History None recorded. Functional [...] available 2015 10:37:42 Medical History Condition Response Anxiety Disorder Y Depression Y GI Problems Y Gynecological HistoryNo gynecological history recorded. Obstetrics History GPAL:G 0 P 0 0 0 0 Immunizations Vaccine Type Date Status Note Provider Nam e and Address Organization Details Recorded Time Influenza, high-dose, trivalent, PF 11/12/2015 completed Barbara Berg MD Attn: [address] [place], [address], [facility] 11/12/2015 11:13:07 Past Encounters Encounter ID Performer Location Encounter Start Date Encounter Closed Date Diagnosis/Indication Diagnosis SNOMED-CT Code Diagnosis ICD10 Code Diagnosis Note [id number] Barbara Berg MD [facility] (Adult Med) [address] [place] [address] 11/12/2015 10:13:30 11/12/2015 14:40:40 Adult health examination 785357455 Z00.00 50 y/o MOE who was seeing in [place], she transferre d to a DrEscobar in [place] who was not comfortabl e refilling her medication s. Her PMHX includes ADHD, Anxiety and Depression . I have reviewed a copy of the lab results she brought in (drawn 07/30/2015) , they appear WNL. Attention deficit hyperactivity disorder 648140589 F90.9 F41.1 F33.0 On Adderall, she also takes Alprazolam , Effexor and Trazodone. She needs to see a mental health provider, I will be able to refill the last two medication s but not the Adderall or Alprazolam .. Tobacco de pendence in remission 778057144 F17.201 She was advised to wean herself off the electronic cigarettes . Excessive sweating 84272 005 R61 Family his tory of cancer of colon 798743174 Z80.0 She gets colonoscop ies every three years. Health Concerns Section Related Observation LastModified by Organization Detai ls LastModified Time None Recorded Concern Status LastModified by Organization Details LastModified Time None Recorded Advance Directives Directive None Recorded Payers Insurance Date Sequence Insurance Name Policy Number Policy Daugherty Covered Member ID Daugherty Member ID Guarantor Name 05/12/2023 1 [place] [id number] Clementine Escobar [id number] Clementine Escobar OBGyn Episode No OBEpisode recorded.
--- OUTSIDE RECORDS SUMMARY | 2024-08-20 09:17 | XMS_ITS | Clinical Summary ---
Author Organization [facility] Address [address] [place] [address] Care Team Providers Care Keeler Polygraph Operator Name Role Phone Ilana Almaraz MD Primary Care Provide r Source Comments [facility],non-owned Affiliates and Associated Physician Practices is amultiple site organization consisting of ambulatory clinics and hospital sitesin [place], [place], [place] and [place]. This disclosure is being madepursuant to the Care Everywhere program and may not contain all information available regarding this patient. Last updated 17.[facility] Allergies No known active allergies Medications * [...] TABS Take 1 tablet by mouth Active Bourbon-3 Fatty Acids (FISH OIL) 500 MG capsule [...] on file Legal Sex Female 5:47 AM PRODUCTION HARDENER Gender Identity Not on file Sexual Orientation [...] 5:27 PM CDT Height 162.6 cm (5' 4) 07/14/2017 5:27 PM CDT Body Mass Index [...] topic Insurance [employer] Care Teams Keeler Polygraph Operator Relationship Specialty Start Date End Date Ilana Almaraz MD PCP - General Family Medicine 07/13/17
--- OUTSIDE RECORDS SUMMARY | 2024-08-20 09:17 | XMS_ITS | Encounter Summary ---
Author Organization [facility] Address [address] [place] [address] Care Team Providers Care Line Service Supervisor Name Role Phone Carl Garg MD Primary Care Provider [phone] Encounter Details Date Type Department Care Team (Late st Contact Info) Description 06/03/1998 Outpatient [facility] Family Medicine [address] [place] [address] [phone] Tate Everett DO NO ADDRESS ON FILE Social History Tobacco Use Types Packs/Day Years Used Date Smoking Tobacco: Never Assessed Comments Unknown Sex and Gender Information Value Date Recorded Sex Assigned at Not on file Legal Sex Female 4:41 AM MARINE PROPULSION TECHNICIAN Gender Identity Not on file Sexual Orientation Not on file documented as of this encounter Plan of Treatment Not on file documented as of this encounter Visit Diagnoses Not on filedocumented in this encounter Care Teams Line Service Supervisor Relationship Specialty Start Date End Date Carl Garg MD [facility] [place] [id number] PCP - General Internal Medicine 02/23/18 documented as of this encounter
--- OUTSIDE RECORDS SUMMARY | 2024-08-20 09:17 | XMS_ITS | Clinical Summary ---
Author Organization [facility] Address [address] [place] [address] Care Team Providers Care Steam Shovelman Name Role Phone Carl Garg MD Primary Care Provider [phone] Allergies No known active allergies Medications cholecalciferol , vitamin D3, 1,000 unit Take by mouth. Active multivitamin (DAILY-ANA) tablet Take 1 Tablet by mouth daily. Active lidocaine (LIDODERM) 5 % Adhesive Patch, Medicated Apply 1 Patch to affected area every 24 hours. 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 Not on file [...] 9:06 AM CDT Height 162.6 cm (5' 4) 04/24/2018 9:06 AM CDT Body Mass Index 22.31 04/24/2018 9:06 AM CDT Plan of Treatment Health Maintenance Due Date Last Done Comments HPV/Cotest (21-29) 10/09/1984 HPV/Cotest (30-65) 10/09/1993 CERVICAL CANCER SCREENING 01/22/2003 PAP SMEAR 01/22/2003 01/23/2000 BREAST CANCER SCREENING 2003 FIT-DNA Q 3 years 10/09/2008 FIT/FOBT Q 1 year 10/09/2008 Flex Sig/CT Colonography Q 5 years 10/09/2008 ZOSTER VACCINE (1 of 2) 10/09/2013 HEPATITIS B VACCINES (1 of 3 - Risk 3-dose series) 2023 RSV VACCINE (60+ or ) (1 - Risk 60-74 years 1-dose series) 2023 COLORECTAL SCREENING 01/23/2024 01/22/2014 Colorectal Cancer Screening 01/23/2024 INFLUENZA VACCINE (#1) 2024 9, 11/18/2017, 11/15/2015, Additional history exists DTAP/TDAP/TD VACCINES (2 - T d or Tdap) 09/04/2026 09/04/2016 Insurance [facility] BLUE ACCESS/TRUE BLUE PPO Care Teams Steam Shovelman Relationship Specialty Start Date End Date Carl Garg MD [address] [place] [address] PCP - General Internal Medicine 02/23/18
--- OUTSIDE RECORDS SUMMARY | 2024-08-20 09:17 | XMS_ITS | Encounter Summary ---
Author Organization [facility] Address [address] [place] [address] Care Team Providers Care Rules Examiner Name Role Phone Carl Garg MD Primary Care Provider [phone] Encounter Details Date Type Department Care Team (Late st Contact Info) Description 05/01/2001 Outpatient [facility] Family Medicine [address] [place] [address] [phone] Tate Everett DO NO ADDRESS ON FILE Social History Tobacco Use Types Packs/Day Years Used Date Smoking Tobacco: Never Assessed Comments Unknown Sex and Gender Information Value Date Recorded Sex Assigned at Not on file Legal Sex Female 4:41 AM BEE RAISER Gender Identity Not on file Sexual Orientation Not on file documented as of this encounter Plan of Treatment Not on file documented as of this encounter Visit Diagnoses Not on filedocumented in this encounter Care Teams Rules Examiner Relationship Specialty Start Date End Date Carl Garg MD [facility] [place] [address] PCP - General Internal Medicine 02/23/18 documented as of this encounter
--- OUTSIDE RECORDS SUMMARY | 2024-08-20 09:17 | XMS_ITS | Encounter Summary ---
Author Organization [facility] Address [address] [place] [address] Care Team Providers Care Solar Energy Systems Designer Name Role Phone Carl Garg MD Primary Care Provider [phone] Encounter Details Date Type Department Care Team (Late st Contact Info) Description 04/02/1998 Outpatient Historical [facility] & [facility] Family Medicine [address] [place] [address] [phone] Tate Everett DO NO ADDRESS ON FILE Social History Tobacco Use Types Packs/Day Years Used Date Smoking Tobacco: Never Assessed Comments Unknown Sex and Gender Information Value Date Recorded Sex Assigned at Not on file Legal Sex Female 4:41 AM AIRBRUSH ARTIST TECHNICAL Gender Identity Not on file Sexual Orientation Not on file documented as of this encounter Plan of Treatment Not on file documented as of this encounter Visit Diagnoses Not on filedocumented in this encounter Care Teams Solar Energy Systems Designer Relationship Specialty Start Date End Date Carl Garg MD [facility] [place] [address] PCP - General Internal Medicine 02/23/18 documented as of this encounter
--- OUTSIDE RECORDS SUMMARY | 2024-08-20 09:17 | XMS_ITS | Encounter Summary ---
Author Organization [facility] Address [address] [place] [address] Care Team Providers Care Medical Librarian Name Role Phone Carl Garg MD Primary Care Provider Encounter Details Date Type Department Care Team (Late st Contact Info) Description 04/19/2002 [email or web address] [address] [place] [address] [phone] Tate Everett DO NO ADDRESS ON FILE Social History Tobacco Use Types Packs/Day Years Used Date Smoking Tobacco: Never Assessed Comments Unknown Sex and Gender Information Value Date Recorded Sex Assigned at Not on file Legal Sex Female 4:41 AM PSYCHOLOGICAL AIDE Gender Identity Not on file Sexual Orientation Not on file documented as of this encounter Plan of Treatment Not on file documented as of this encounter Visit Diagnoses Not on filedocumented in this encounter Care Teams Medical Librarian Relationship Specialty Start Date End Date Carl Garg MD [facility][note 3] [place] [address] PCP - General Internal Medicine 02/23/18 documented as of this encounter
--- OUTSIDE RECORDS SUMMARY | 2024-08-20 09:17 | XMS_ITS | Encounter Summary ---
Author Organization [facility] Address [address] [place] [address] Care Team Providers Care Animal Nursery Worker Name Role Phone Carl Garg MD Primary Care Provider [phone] Encounter Details Date Type Department Care Team (Late st Contact Info) Description 04/21/1998 Outpatient Historical [facility] & [facility] Family Medicine [address] [place] [address] [phone] Tate Everett DO NO ADDRESS ON FILE Social History Tobacco Use Types Packs/Day Years Used Date Smoking Tobacco: Never Assessed Comments Unknown Sex and Gender Information Value Date Recorded Sex Assigned at Not on file Legal Sex 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
--- OUTSIDE RECORDS SUMMARY | 2024-08-20 09:17 | XMS_ITS | Encounter Summary ---
Author Organization [facility] Address [address] [place] [address] Care Team Providers Care Furnace Fitter Name Role Phone Carl Garg MD Primary Care Provider [phone] Encounter Details Date Type Department Care Team (Late st Contact Info) Description 09/25/1999 Outpatient Historical [facility] & [facility] Family Medicine [address] [place] [address] [phone] Tate Everett DO NO ADDRESS ON FILE Social History Tobacco Use Types Packs/Day Years Used Date Smoking Tobacco: Never Assessed Comments Unknown Sex and Gender Information Value Date Recorded Sex Assigned at Not on file 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
--- OUTSIDE RECORDS SUMMARY | 2024-08-20 09:18 | XMS_ITS | Clinical Summary ---
Author Organization [facility] Address [address] [place] [address] Care Team Providers Care Vp Clinical Name Role Phone Neri STEVENS MD, Gregory Amor Unavailable [phone] Anand Rao MD Unavailable [phone] Keanu Ma MD Primary Care Provider [phone] Allergies No known active allergies Medications ascorbic [...] (10/25/2017): Added automatically from request for surgery [id number] Chronic left shoulder pain 05/23/2017 Immunizations Immunization [...] knee - torn meniscus/ACL, clavicle Fractures Headache [place] syndrome Osteoporosis GERD (gastroesophageal reflux disease) Anxiety [...] on file Legal Sex Female 8:06 AM INFORMATION SYSTEMS SPECIALIST Gender Identity Not on file Sexual Orientation Not on file Obstetrics History Last Filed Vital Signs Vital Sign Reading Time Taken Comments Blood Pressure 112/68 10/23/2020 1:06 PM CDT Pulse 79 10/23/2020 1:06 PM CDT Temperature 36.8 C (98.3 F) 01/28/2022 4:29 PM INFORMATION SYSTEMS SPECIALIST Respiratory Rate 19 11/07/2017 5:45 PM CDT Oxygen Saturation 94% 11/07/2017 5:45 PM CDT Inhaled Oxygen Concentration - - Weight 54.4 kg (120 lb) 01/28/2022 4:29 PM INFORMATION SYSTEMS SPECIALIST Height 162.6 cm (5' 4) 10/23/2020 1:06 PM CDT Body Mass Index 20.6 10/23/2020 1:06 PM CDT Plan of Treatment Health Maintenance Due Date Last Done Comments Breast Cancer Screening-Mammogram 1963 Colon Cancer Screening-Colonoscopy 1963 Depression Screening 1963 Hepatitis C Screening 1963 Hepatitis B Screening 10/09/1981 Regular Well Visit/Exam 18-64 10/09/1981 Zoster Vaccine (2 of 2) 11/21/2020 09/26/2020 Influenza Vaccine (#1) 2024 , 11/15/2019, 11/18/2017, Additional history exists DTaP/Tdap/Td Vaccine (2 - Td or Tdap) 09/04/2026 09/04/2016 Pneumococcal vaccine <65 Aged Out 09/26/2020 No longer eligible based on patient's age to complete this topic Insurance MEDICARE ADVANTAGE [facility] Address: [address] [address] MEDICARE ADVANTAGE [facility] MEDIC[facility] Address: [id number] [place] [address] Care Teams Vp Clinical Relationship Specialty Start Date End Date Keanu Ma MD [address] [place] [address] PCP - General Internal Medicine 11/24/20 Gregory He III, MD Referring Physician Sports Medicine 07/03/17 Anand Rao MD [address] [place] [id number] Referring Physician Orthopedic Surgery 09/09/17
--- OUTSIDE RECORDS SUMMARY | 2024-08-20 09:18 | XMS_ITS | Data Portability ---
Author Organization [place] [facility], Main Office Address [address] [place] [address] Care Team Providers Care Check Weigher Name Role Phone JESSIKA HEIN Primary Care Provider [phone] JESSIKA HEIN Referring Provider Assessment Encounter Date Assessment Date Assessment LastModified by Organization Details LastModified Time 07/05/2024 07/05/2024 The patient has pain in the right wrist she appears to have some extensor tendinitis around the ulnar styloid region. We talked about treatment options in detail today she wanted to proceed with diclofenac 75 mg b.i.d. with food we will get her a new cock-up wrist brace. Today this was fitted in the office for her best comfort and support by our staff. She also wanted to try a shot of cortisone therefore under sterile conditions I injected the patient's right wrist extensor tendon sheath around the ulnar styloid in the office with 2 cc 0.5% bupivacaine and 10 mg of Kenalog. Patient tolerated procedure well. We will give it time I will see her back in 6 weeks see how she is doing. If her symptoms continue we will talk about further options from there. 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 She wanted to see if we could aspirate this and decompress it. Under sterile conditions I used an 18 gauge needle to puncture the small pea size cyst I was able to aspirate a very minimal amount of gelatinous fluid I then manually expressed more gelatinous fluid and decompressed the cyst nicely. I applied a Band-Aid and she was pleased with the results. We will recheck this next time she returns as well. 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 If it starts to look red hot swollen infected etc. she is instructed call she voiced understanding and agree with the above plan. [email or web address] Not available 07/05/2024 11:45:47 Plan of Treatment Reminders Order Date Submit Date Provider Last Modified By Organization Details Last Modified Time Details Appointments None recorded. Lab None recorded. Referral None recorded. Procedures injection/a spiration joint/bursa (PROC) 2024 025 [email or web address] In-Office Order, Internal Use Only DO Not Attach Compendium DO Not Attach Compendium, Do Not Delete/merge, [id number] 10:23:45 injection/a spiration joint/bursa (PROC) 2024 025 [email or web address] In-Office Order, Internal Use Only DO Not Attach Compendium DO Not Attach Compendium, Do Not Delete/merge, [id number] 11:50:35 Surgeries None recorded. Imaging XR, wrist 2024 025 [email or web address] [facility] [place], [address], 11:48:24 Medication Orders diclofenac sodium 75 mg tablet,indra yed release 2024 025 [email or web address] [id number] [address] [place], [place], [id number], 11:36:09 bupivacaine HCl 0.5 % (5 mg/mL) injection solution 2024 025 [email or web address] [facility] #[id number] [place], [place], [id number], 11:36:09 Kenalog 10 mg/mL suspension for injection 2024 025 [email or web address] [facility] #[id number] [place], [place], [id number], 11:36:09 Patient TargetsNo targets recorded. Patient InstructionsNo instructions recorded. Reason for Referral None Reported. Results Created Date Observation Date Name Description Value Unit Range Abnormal Flag Note LastModifiedBy Organization Detail LastModifiedTime 10/22/19 21 10/21/2020 COVID -19 (SARS COV-2 ) RNA, BENJAMÍN covid-19 RNA negati ve This test has been autho rized by the FDA under an Emerg ency Use Autho rizat ion (EUA) for use by autho rized labor atori es. Negat mark resul ts shoul d be treat ed as presu mptiv e and, if incon siste nt with clini kiersten signs and sympt oms neces daniel for patie nt manag ement , shoul d be teste d with diffe rent autho rized or clear ed molec ular tests . Negat mark resul ts do not precl ude SARS- Co-V- 2 infec tion and shoul d not be used as the sole basis for patie nt manag ement decis ions. Negat mark resul ts shoul d be consi dered in the daniel xt of a patie nt's recen t expos ures, histo ry and the prese nce of clini kiersten signs and sympt oms consi stent with COVID -19. Tyler hernandez w the Fact Sheet s for healt h care provi ders and patie nts at [facility] te: https ://gl oao into care. leidaot t/en/ produ ct-de tails /id-n ow-co vid-1 9.htm l Metho dolog y: Isoth ermal Nucle ic Acid Ampli ficat ion Not Available [facility] (Lab) [address] [facility], [place], [address], 10/21/2020 11:35:49 07/12/19 21 07/11/2020 MAMMO , scree anneliese, digit al, bilat eral No observ ation record ed. [id number], [place], [address], 04/14/2022 17:45:53 07/31/19 21 07/31/2020 XR, wrist No observ ation record ed. [id number] [facility] [address], [place], [address], 04/14/2022 17:45:53 08/14/19 21 08/13/2020 MRI, wrist , w/o contr ast [facility] [address], [place] [address] [phone] Patien t Name: RICK TAI Access ion #: [id number] Sex: F : 1965 7 Locati on: RAD Attend ing Physic petey: CIERRA GALE ng Physic petey: CIERRA GALE Exam Date: 12:25 PM Exam Name: MRI WRIST LT WO Admitt ing Diagno sis(es ): RADIOL OGY REPORT - FINAL EXAM: MRI WRIST LT WO HISTOR Y: left wrist pain 54-yea r-old female with left wrist chroni c pain locali zed to the base of the thumb. COMPAR SHOLA: Radiog raphs dated 2020 and 2020. TECHNI QUE: Multip lanar multis equenc e noncon trast MR images of the left wrist were perfor med. FINDIN GS: No acute fractu re or disloc ation are identi fied about the left wrist. There are cystic change s and edema of the lunate , greate r proxim ally and medial ly (image 8, series 8), withou t vidals reyna g edema of the distal radius or Page 1 of 2 [facility] Patien t Name: RICK TAI Access ion #: [id number] Sex: F : 1965 7 Exam Date: 12:25 PM Exam Name: MRI WRIST LT WO Admitt ing Diagno sis(es ): ulna. There are minima l degene rative change s of the 1st CMC joint and trisca phe joint with presen ce of small margin al osteop hytes and small joint effusi ons. There is a small amount of fluid surrou nding the extens or pollic is brevis and abduct or pollic is longus in 1st dorsal compar tment (image s 9-15, series 6). No other eviden ce of tenosy noviti s. The median nerve demons trates normal signal and morpho logy. The TFCC is partia lly torn near the ulnar attach ment. No gangli on cysts are identi fied throug hout the left wrist. IMPRES SHILPI: 1. No acute fractu re of the left wrist. 2. Mild tenosy noviti s of the 1st dorsal compar tment consis tent with mild de Querva in tenosy noviti s. 3. Cystic change s and edema of the proxim al-med ial aspect of the lunate withou t corres pondin g signal abnorm ality of the distal radius or ulna. There is no signif icant ulnar varian ce. It is uncert ain if this appear ance is due to degene rative change s, abutme nt syndro me, or early Kienbo ck's diseas e. 4. Partia l tear of the medial aspect of the TFCC near the ulnar attach ment. 5. Minima l degene rative change s of the 1st CMC joint and trisca phe joint. Create d and electr onical ly signed by: Ricardo garner MD Signed Date: 1:50 PM (CT) Dictat ed by: Ricardo garner MD DD: 1:50 PM (CT) DT: 1:50 PM (CT) Page 2 of 2 [id number] [facility] (Imaging) [address], [place], [address], 04/14/2022 17:45:53 07/06/19 25 XR, wrist No observ ation record ed. [email or web address] [facility] [address] [facility], [place], [address], 07/05/2024 11:48:23 Result Notes Documentation Provider Name and Address Organization Details Recorded Time Mri, Wrist, W/o Contrast : [facility] [address] [id number] Patient Name: RICK TAI Sex: F : 1965 Location: [facility] Attending Physician: CIERRA GALE Ordering Physician: CIERRA GALE Exam Date: 08/13/2020 12:25 PM Exam Name: MRI WRIST LT WO Admitting Diagnosis(es): RADIOLOGY REPORT - FINAL EXAM: MRI WRIST LT WO HISTORY: left wrist pain 54-year-old female with left wrist chronic pain localized to the base of the thumb. COMPARISON: Radiographs dated 07/30/2020 and 02/27/2020. TECHNIQUE: Multiplanar multisequence noncontrast MR images of the left wrist were performed. FINDINGS: No acute fracture or dislocation are identified about the left wrist. There are cystic changes and edema of the lunate, greater proximally and medially (image 8, series 8), without corresponding edema of the distal radius or Page [address] [facility] Patient Name: RICK TAI Sex: F : 1965 Exam Date: 08/13/2020 12:25 PM Exam Name: MRI WRIST LT WO Admitting Diagnosis(es): ulna. There are minimal degenerative changes of the 1st CMC joint and triscaphe joint with presence of small marginal osteophytes and small joint effusions. There is a small amount of fluid surrounding the extensor pollicis brevis and abductor pollicis longus in 1st dorsal compartment (images 9-15, series 6). No other evidence of tenosynovitis. The median nerve demonstrates normal signal and morphology. The TFCC is partially torn near the ulnar attachment. No ganglion cysts are identified throughout the left wrist. IMPRESSION: 1. No acute fracture of the left wrist. 2. Mild tenosynovitis of the 1st dorsal compartment consistent with mild de Quervain tenosynovitis. 3. Cystic changes and edema of the proximal-medial aspect of the lunate without corresponding signal abnormality of the distal radius or ulna. There is no significant ulnar variance. It is uncertain if this appearance is due to degenerative changes, abutment syndrome, or early Kienbock's disease. 4. Partial tear of the medial aspect of the TFCC near the ulnar attachment. 5. Minimal degenerative changes of the 1st CMC joint and triscaphe joint. 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 Procedures Surgical History Date Name Laterality Status Provider Name and Address Organization Details Recorded Time 07/12/19 21 Most Recent Mammogram completed Not Available [facility] 04/14/2022 17:42:55 09/08/19 19 Breast Biopsy completed Not Available [facility] 2022 17:42:56 10/16/19 18 other completed Not Available [facility] 17:42:56 09/05/19 17 other completed Not Available [facility] 3 17:42:56 04/07/19 16 Date of Last Pap Smear completed Not Available [facility] 04/14/2022 17:42:55 02/14/19 00 EXTENSION EDGER Surgery completed Not Available [facility] 04/15/19 17:42:56 01/27/19 82 section completed Not Available [facility] 02/2022 17:42:56 other completed Not Available [facility] 02/2022 17:42:56 Neck completed Amber Jones [facility]NA [facility] 07/05/2024 10:08:39 hysterectomy completed Amber Jones CNA [facility] 07/05/2024 10:08:51 Imaging Results None recorded. Procedure Notes None recorded. Medical Equipment None Reported. Allergies No known drug allergies Medications Name Sig Start Date Stop Date Status Note LastModified by Organization Details LastModified Time cyclobenzap rine 10 mg tablet Take 1 tablet twice a day by oral route. active Not Available Not Available No t Available amoxicillin 500 mg capsule 07/06 completed Not Available Not Available Not Available lamotrigine 150 mg tablet TAKE 1 TABLET BY MOUTH TWICE DAILY active Not Available Not Available No t Available venlafaxine ER 75 mg capsule,ext ended release 24 hr 07/19 completed Not Available Not Available Not Available gabapentin 600 mg tablet 07/25 completed Not Available Not Available Not Available trazodone 50 mg tablet 07/06 completed Not Available Not Available Not Available polyethylen e glycol 3350 17 gram oral powder packet 07/19 completed Not Available Not Available Not Available azithromyci n 250 mg tablet active Not Available Not Available Not Available alprazolam 1 mg tablet TAKE 1 TABLET BY MOUTH 1 TIME A DAY active Not Available Not Available No t Available tizanidine 4 mg tablet TK 2 TS PO Q 8 H PRF MUSCLE SPASM 07/25 completed Not Available Not Available Not Available hydrocodone 5 mg-acetamin ophen 325 mg tablet 07/05 completed Not Available Not Available Not Available carbamazepi ne ER 100 mg tablet,exte nded release,12 hr 07/29 completed Not Available Not Available Not Available ondansetron HCl 4 mg tablet 07/19 completed Not Available Not Available Not Available bupivacaine HCl 0.5 % (5 mg/mL) injection solution Take 10 mg by injection route. 2024 active Not Available Not Available Not Avai lable clonazepam 0.5 mg tablet TK 1 T PO TID PRN 07/25 completed Not Available Not Available Not Available gabapentin 400 mg capsule 07/19 completed Not Available Not Available Not Available olanzapine 5 mg tablet 07/29 completed Not Available Not Available Not Available venlafaxine ER 150 mg capsule,ext ended release 24 hr 07/19 completed Not Available Not Available Not Available bacitracin 500 unit/gram topical ointment APPLY TO AA QD PRN 07/19 completed Not Available Not Available Not Available acetaminoph en 300 mg-codeine 30 mg tablet 07/19 completed Not Available Not Available Not Available hydrocodone 10 mg-acetamin ophen 325 mg tablet TK 1 T PO Q 6 H PRN P. 07/19 completed Not Available Not Available Not Available peg-electro lyte solution 420 gram oral solution 07/29 completed Not Available Not Available Not Available tramadol 50 mg tablet 07/25 completed Not Available Not Available Not Available quetiapine 100 mg tablet TAKE 1 TABLET BY MOUTH EVERY DAY AT BEDTIME 07/30 completed Not Available Not Available Not Available lamotrigine 25 mg tablet 07/29 completed Not Available Not Available Not Available meloxicam 7.5 mg tablet 07/25 completed Not Available Not Available Not Available oxycodone-a cetaminophe n 5 mg-325 mg tablet 07/19 completed Not Available Not Available Not Available alprazolam 0.5 mg tablet TAKE 1 TABLET BY MOUTH THREE TIMES DAILY active Not Available Not Available No t Available alprazolam 0.25 mg tablet 07/19 completed Not Available Not Available Not Available DOK 100 mg capsule TK ONE C PO BID FOR 15 DAYS 07/25 completed Not Available Not Available Not Available gabapentin 800 mg tablet 07/25 completed Not Available Not Available Not Available dextroamphe tamine-amph etamine ER 20 mg 24hr capsule,ext end release TAKE 1 CAPSULE BY MOUTH EVERY DAY IN THE MORNING active Not Available Not Available No t Available trazodone 100 mg tablet TAKE 2 TABLETS BY MOUTH EVERY EVENING active Not Available Not Available No t Available dicyclomine 20 mg tablet 07/25 completed Not Available Not Available Not Available Kenalog 10 mg/mL suspension for injection Take 10 mg by injection route. 2024 active [facility]: [phone]- [phone] Not Available Not Available Not Available amitriptyli ne 10 mg tablet 07/25 completed Not Available Not Available Not Available bisacodyl 10 mg rectal suppository UNW AND I 1 SUP REC FOR ONE DOSE UTD 07/29 completed Not Available Not Available Not Available cephalexin 500 mg capsule TAKE 1 CAPSULE BY MOUTH EVERY 8 HOURS FOR ACUTE OPIOID THERAPY DAYS active Not Available Not Available No t Available buspirone 10 mg tablet 07/05 completed Not Available Not Available Not Available dextroamphe tamine-amph etamine 20 mg tablet 07/29 completed Not Available Not Available Not Available lidocaine 5 % topical patch JAVON 1 PA EXT TO THE SKIN BID 07/25 completed Not Available Not Available Not Available gabapentin 300 mg capsule TAKE 1 CAPSULE BY MOUTH TWICE DAILY 08/20 completed Not Available Not Available Not Available diclofenac sodium 75 mg tablet,indra yed release Take 1 tablet twice a day by oral route. 2024 active Not Available Not Available Not Avai lable hydroxyzine HCl 25 mg tablet 07/06 completed Not Available Not Available Not Available gabapentin 100 mg capsule TAKE 2 CAPSULES BY MOUTH TWICE DAILY 08/20 completed Not Available Not Available Not Available Transderm-S copper plater 1 mg over 3 days transdermal patch JAVON 1 PA TO HAIRLESS AREA BEHIND 1 EAR AT LEAST 4-12 HRS BEFORE SURGERY. active Not Available Not Available No t Available dextroamphe tamine-amph etamine ER 30 mg 24hr capsule,ext end release active Not Available Not Available Not Available ondansetron 4 mg disintegrat ing tablet 07/25 completed Not Available Not Available Not Available risperidone 1 mg tablet 07/19 completed Not Available Not Available Not Available lamotrigine 100 mg tablet TK 1 T PO BID active Not Available Not Available No t Available risperidone 0.5 mg tablet 07/29 completed Not Available Not Available Not Available naproxen 500 mg tablet TK 1 T PO BID 07/19 completed Not Available Not Available Not Available oxycodone 5 mg tablet TK 1 T PO Q 4 H PRN 07/25 completed Not Available Not Available Not Available Amphetamine Salt Combo 20 mg tablet 09/11 completed Not Available Not Available Not Available dextroamphe tamine-amph etamine ER 25 mg 24hr capsule,ext end release TAKE 1 CAPSULE BY MOUTH EVERY DAY 07/05 completed Not Available Not Available Not Available escitalopra m 10 mg tablet TK 1 T PO QD active Not Available Not Available No t Available escitalopra m 20 mg tablet TAKE 1 TABLET BY MOUTH EVERY DAY active Not Available Not Available No t Available aripiprazol e 10 mg tablet TAKE 1/2 TABLET BY MOUTH EVERY DAY FOR 2 WEEKS THEN INCREASE TO 1 TABLET A DAY 07/05 completed Not Available Not Available Not Available aripiprazol e 15 mg tablet TAKE 1 TABLET BY MOUTH EVERY DAY 07/05 completed Not Available Not Available Not Available aripiprazol e 5 mg tablet 07/06 completed Not Available Not Available Not Available rosuvastati n 10 mg tablet TAKE 1 TABLET BY MOUTH DAILY active Not Available Not Available No t Available duloxetine 30 mg capsule,del ayed release TK 1 C PO QD IN THE TIFFANY 07/29 completed Not Available Not Available Not Available duloxetine 60 mg capsule,del ayed release TK 1 C PO QD IN THE MORNING 07/29 completed Not Available Not Available Not Available carbamazepi ne ER 200 mg capsule,ext ended release [id number] 07/29 completed Not Available Not Available Not Available tizanidine 4 mg capsule TK 1 C PO TID PRN 07/29 completed Not Available Not Available Not Available Equetro 300 mg capsule, extended release 07/19 completed Not Available Not Available Not Available pregabalin 50 mg capsule TAKE 1 CAPSULE BY MOUTH TWICE DAILY IN THE MORNING AND AT NIGHT 07/30 completed Not Available Not Available Not Available pregabalin 75 mg capsule TAKE ONE CAPSULE BY MOUTH TWICE DAILY active Not Available Not Available No t Available pregabalin 100 mg capsule TK 1 C PO QAM AND 1 C AT NOON QD active Not Available Not Available No t Available ramelteon 8 mg tablet TAKE 1 TABLET BY MOUTH EVERY DAY AT BEDTIME 07/30 completed Not Available Not Available Not Available chlorhexidi ne gluconate 0.12 % mouthwash 07/19 completed Not Available Not Available Not Available calcipotrie ne-betameth asone 0.005 %-0.064 % topical ointment 07/25 completed Not Available Not Available Not Available lidocaine (PF) 10 mg/mL (1 %) injection solution In office injection administe red by the provider 08/20 completed NDC: 0409- 4276- [id number] Not Available Not Available Not Available Gavilax 17 gram/dose oral powder 07/19 completed Not Available Not Available Not Available Latuda 20 mg tablet TAKE 1 TABLET BY MOUTH EVERY DAY IN THE EVENING 07/30 completed Not Available Not Available Not Available lidocaine 5 % topical ointment JAVON EXT AA BID 07/19 completed Not Available Not Available Not Available Latuda 60 mg tablet 07/19 completed Not Available Not Available Not Available Vraylar 1.5 mg capsule TAKE 1 CAPSULE BY MOUTH EVERY DAY AT BEDTIME 07/30 completed Not Available Not Available Not Available Fluvirin 45 mcg (15 mcg x 3)/0.5 mL intramuscul ar suspension ADM 0.5ML IM UTD 07/05 completed Not Available Not Available Not Available Fluvirin 45 mcg (15 mcg x 3)/0.5 mL intramuscul ar suspension active Not Available Not Available N ot Available Afluria Quad (PF) 60 mcg (15 mcg x 4)/0.5 mL IM syringe active Not Available Not Available N ot Available ID NOW COVID-19 Test Kit TEST DIRECTED 07/05 completed Not Available Not Available Not Available Flucelvax Quad (PF) 60 mcg (15 mcg x 4)/0.5 mL IM syringe ADM 0.5ML IM UTD 07/05 completed Not Available Not Available Not Available buspirone 15 mg capsule Take 1 capsule every day by oral route. 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[facility] [employer] [facility] 07/05/2024 10:02:03 Date Recorded Body mass index (BMI) Body height Body temperature Body weight Systolic And Diastolic Provider Name and Address Organization Details Last Updated DateTime 07/30/2020 22 kg/m2 162.56 cm 97.7 [degF] 93186.8 2 g 126/80 mm[Hg] Not Available [facility] 17:43:42 Date Recorded Body mass index (BMI) Body height Body weight Provider Name and Address Organization Details Last Updated DateTime 08/20/2020 22 kg/m2 162.56 cm 16456.82 g Not Available [facility] 04/14/2022 17:43:43 Date Recorded Body mass index (BMI) Body height Body weight Provider Name and Address Organization Details Last Updated DateTime 10/15/2020 22.3 kg/m2 162.56 cm 53088.01 g Not Available [facility] 04/14/2022 17:43:43 Date Recorded Body mass index (BMI) Body height Body weight Provider Name and Address Organization Details Last Updated DateTime 11/04/2020 23.2 kg/m2 162.56 cm 22856.97 g Not Available [facility] 04/14/2022 17:43:43 Social History Question Answer Notes LastModified by [employer] Details LastModified Time Tobacco Smoking Status Former Smoker quit 2012 Not Available [facility] 04/14/2022 17:42:47 What Is Your Level Of Caffeine Consumption? Occasional [id number] Information not available 04/14/2022 In The 14 Days Before Symptom Onset, Have You Had Close Contact With A Laboratory-confir med COVID-19 While That Case Was Ill? No [id number] Information not available 04/14/2022 In The 14 Days Before Symptom Onset, Have You Had Close Contact With A Person Who Is Under Investigation For COVID-19 While That Person Was Ill? No [id number] Information not available 04/14/2022 Which Illicit Or Recreational Drugs Have You Used? Marijuana Medical Card For Chronic Pain [id number] Information not available 04/14/2022 Sex: Unknown Functional Status Question Answer Note LastModified by [employer] Details LastModified Time What is your level of alcohol consumption? Occasional [id number] Information not available 04/14/2022 Do you or have you ever used e-cigarettes or vape? Former user of electronic cigarettes [id number] Information not available 04/14/2022 What is your exercise level? None [id number] Information not available 04/14/2022 Mental Status None recorded. Family History Relationship Description Onset Age of this Age Resolved Age Notes LastModified by Organization Details LastModified Time Maternal Grandmother Malignant tumor of colon [email or web address] Not available 07/05 09:52:05 Maternal Grandfather Malignant tumor of colon [email or web address] Not available 07/05 09:52:05 Father Myocardial infarction [id number] Not available 04/14/2022 17:42:57 Father Cerebrovascu lar accident [email or web address] Not available 09:52:05 Father Heart disease [email or web address] Not available 2024 10:07:26 Sister Cerebrovascu lar accident [email or web address] Not available 09:52:05 Sister Diabetes mellitus [email or web address] [id number] Not available 04/14/2022 17:42:57 Brother Heart disease [id number] Not available 04/14/2022 17:42:57 Brother Diabetes mellitus deceas ed [id number] Not available 04/14/2022 17:42:57 Brother Malignant tumor of kidney 70 deceas ed [email or web address] Not available 07/05/2024 09:52:05 Brother Kidney disease [email or web address] Not available 2024 10:07:16 Brother Hypertensive disorder [email or web address] Not available 2024 10:07:48 Mother Diabetes mellitus [id number] Not available 04/14/2022 17:42:57 Medical History Condition Response DEPRESSION (INCLUDING POST ) Y URINARY/BLADDER/KIDNEY PROBLEMS Y ANXIETY DISORDER Y Gynecological History Statement/Question Response Abnormal Pap N Date of Last Pap Smear 04/07/2015 Current Control Method Hysterectom y Age at Menarche 14 Most Recent Mammogram 07/11/2020 Obstetrics History GPAL:G 4 P 2 0 2 2 Type Value Full Term 2 Induced 2 Living 2 Total 4 Past Encounters Encounter ID Performer Location Encounter Start Date Encounter Closed Date Diagnosis/Indication Diagnosis SNOMED-CT Code Diagnosis ICD10 Code Diagnosis Note [id number] S_[facility] _ATHENA_M IGRATION_ DEFAULT_1 _1 , 07/30/2020 00:00:00 07/30/2020 10:59:29 [id number] Cierra Gale MD S_[address] [address] 07/30/2020 00:00:00 07/30/2020 16:45:27 [id number] Cierra Gale MD [facility] [address] [place] [address] 08/20/2020 00:00:00 08/20/2020 17:23:21 [id number] Cierra Gale MD [facility] [address] [facility] [address] [place] [address] 10/15/2020 00:00:00 10/15/2020 16:11:02 [id number] Cierra Gale MD [facility] [place] 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 [id number] 671605 M67.441 Health Concerns Section Related Observation LastModified by Organization Detai ls LastModified Time None Recorded Concern Status LastModified by Organization Details LastModified Time None Recorded Advance Directives Directive None Recorded Payers Insurance Date Sequence Insurance Name Policy Number Policy Daugherty Covered Member ID Daugherty Member ID Guarantor Name 07/30/2024 1 [place] [id number] Rick Tai [id number] Rick Tai 07/30/2024 1 [facility] (MEDICARE REPLACEMENT/A DVANTAGE - HMO) [id number] Rick Tai [id number] Rick Tai Notes Date Note Type Note Provider Name and Address Organization Details Recorded Time 07/05/2024 text/html the patient is a 58-year-old female who presents with a 2 week history of significant right wrist pain over the ulnar styloid region. This is localized to the area just proximal and distal to the ulnar styloid. She denies any specific trauma or injury. She has had some chronic issues with both wrists over the years she does have fairly prominent ulnar styloids bilaterally right a little worse than left. She states she is quite tender around the area they are described in the right wrist. She does have a wrist brace that she has been using but that is quite worn and ill fitting. She states she has aching pain mostly if she tries to do anything heavy repetitive she can not lift things without significant discomfort denies any locking or catching loss of motion or instability of the wrist. She has never had an injury that she is aware of. She had x-rays today which show a small bony ossicle just off the distal ulnar styloid possibly due to an old fracture that she was unaware of. She has seen Dr. 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 She denies any effusion or swelling her main pain is with wrist flexion or trying to extend her wrist against resistance. She denies any popping or catching or crepitation has no weakness. She comes in today for initial evaluation and treatment. She states the pain is about a 6 on a scale of 1-10. She is not currently on any anti-inflammatory medication. The patient also is complaining of a small bump over the IP joint of her right thumb. She does have some degenerative joint disease noted here on the x-ray today. She denies any signs or symptoms of infection weakness or other symptoms other than she is unhappy with the appearance of it also she bumps it it is a bit tender. She is wondering about having this decompressed today also. She states she had this done 1 other time many years ago. A new past medical history sheet was reviewed and signed on the intake sheet of today's date drug allergies current medications family social history previous surgical history 10 point review of systems was reviewed and discussed in detail today with the patient. DURAN Reed [address], [facility] [address], [place], [address], [place] - [place] [employer] 07/05/2024 11:52:19 OBGyn Episode No OBEpisode recorded.
--- OUTSIDE RECORDS SUMMARY | 2024-08-20 09:18 | XMS_ITS | Referral Summary ---
Author Organization [facility] Address [address] [place] [address] Care Team Providers Care Telecommunications Switch Technician Name Role Phone Neri STEVENS MD, Gregory Amor Unavailable [phone] Anand Rao MD Unavailable Keanu Ma MD Primary Care Provider [phone] Allergies No known active allergies Medications ascorbic [...] (10/25/2017): Added automatically from request for surgery [id number] Chronic left shoulder pain 05/23/2017 Immunizations Immunization [...] on file Legal Sex Female 8:06 AM SOCIAL SERVICES ASSISTANT Gender Identity Not on file Sexual Orientation Not on file Last Filed Vital Signs Vital Sign Reading Time Taken Comments Blood Pressure 112/68 10/23/2020 1:06 PM CDT Pulse 79 10/23/2020 1:06 PM CDT Temperature 36.8 C (98.3 F) 01/28/2022 4:29 PM SOCIAL SERVICES ASSISTANT Respiratory Rate 19 11/07/2017 5:45 PM CDT Oxygen Saturation 94% 11/07/2017 5:45 PM CDT Inhaled Oxygen Concentration - - Weight 54.4 kg (120 lb) 01/28/2022 4:29 PM SOCIAL SERVICES ASSISTANT Height 162.6 cm (5' 4) 10/23/2020 1:06 PM CDT Body Mass Index 20.6 10/23/2020 1:06 PM CDT Plan of Treatment Not on file Insurance [id number] MEDICARE ADVANTAGE [facility] MEDICARE ADVANTAGE Care Teams Telecommunications Switch Technician Relationship Specialty Start Date End Date Keanu Ma MD [address] INTERNAL MEDICINE [place], [place] [id number] PCP - General Internal Medicine 11/24/20 Gregory He III, MD Referring Physician Sports Medicine 07/03/17 Anand Rao MD [address] [place] [address] Referring Physician Orthopedic Surgery 09/09/17
== END 2024-08-20 09:05 | disposition home or self-care (01) ==
LOC: ANHIMG 09:06
PROVIDERS: PCP Family Medicine; Visit Provider Obstetrics & Gynecology
DX: Z12.31 Encounter for screening mammogram for malignant neoplasm of breast (principal)
CPT/HCPCS: 77063; 77067

== ENCOUNTER 2024-08-20 09:37 | Outpatient (CLI) | payer MEDICARE, SELFPAY ==
--- OUTSIDE RECORDS SUMMARY | 2024-08-20 09:45 | XMS_ITS | Encounter Summary ---
Author Organization [facility] Address [address] [place] [address] Care Team Providers Care Appraisal Analyst Name Role Phone Carl Garg MD Primary Care Provider [phone] Encounter Details Date Type Department Care Team (Late st Contact Info) Description 01/25/2002 Outpatient [facility] Family Medicine [address] [place] [address] [phone] Tate Everett DO NO ADDRESS ON FILE Social History Tobacco Use Types Packs/Day Years Used Date Smoking Tobacco: Never Assessed Comments Unknown Sex and Gender Information Value Date Recorded Sex Assigned at Not on file Legal Sex Female 4:41 AM POT ROOM TAPPER Gender Identity Not on file Sexual Orientation Not on file documented as of this encounter Plan of Treatment Not on file documented as of this encounter Visit Diagnoses Not on filedocumented in this encounter Care Teams Appraisal Analyst Relationship Specialty Start Date End Date Carl Garg MD [facility] [place] [address] PCP - General Internal Medicine 02/23/18 documented as of this encounter
--- OUTSIDE RECORDS SUMMARY | 2024-08-20 09:45 | XMS_ITS | Encounter Summary ---
Author Organization [facility] Address [address] [place] [address] Care Team Providers Care Boiling House Oiler Name Role Phone Unavailable Primary Care Provider Unavailabl e Prior Encounters Date Type Department Care Team Description 05/19/2023 Travel 05/19/2023 12:45 PM CDT Office Visit [facility] [address] [place] [address] Kacey Mcginnis DDS Plan of Treatment Not on file Procedures Procedure Name Priority Date/Time Associated Diagnosis Comments OS CONSULT Routine 05/19/2023 12:45 PM CDT Visit Diagnoses Not on file Insurance PPO
--- OUTSIDE RECORDS SUMMARY | 2024-08-20 09:45 | XMS_ITS | Clinical Summary ---
Author Organization [facility] Address [address] [place] [address] Care Team Providers Care Operations Supervisor 2Nd Shift Name Role Phone Unavailable Primary Care Provider [...] (05/19/2023): Added automatically from request for surgery [id number] Social History Tobacco Use Types Packs/Day Years [...]
--- OUTSIDE RECORDS SUMMARY | 2024-08-20 09:45 | XMS_ITS | Encounter Summary ---
Author Organization [facility] Address [address] [place] [address] Care Team Providers Care Shuttle Final Inspector Name Role Phone Carl Garg MD Primary Care Provider [phone] Encounter Details Date Type Department Care Team (Late st Contact Info) Description 05/01/2001 Outpatient [facility] Family Medicine [address] [place] [address] [phone] Tate Everett DO NO ADDRESS ON FILE Social History Tobacco Use Types Packs/Day Years Used Date Smoking Tobacco: Never Assessed Comments Unknown Sex and Gender Information Value Date Recorded Sex Assigned at Not on file Legal Sex Female 4:41 AM MIXER WHIPPED TOPPING Gender Identity Not on file Sexual Orientation Not on file documented as of this encounter Plan of Treatment Not on file documented as of this encounter Visit Diagnoses Not on filedocumented in this encounter Care Teams Shuttle Final Inspector Relationship Specialty Start Date End Date Carl Garg MD [facility] [place] [address] PCP - General Internal Medicine 02/23/18 documented as of this encounter
--- OUTSIDE RECORDS SUMMARY | 2024-08-20 09:45 | XMS_ITS | Clinical Summary ---
Author Organization [facility] Address [address] [place] [address] Care Team Providers Care Emergency Crew Supervisor Name Role Phone Carl Garg MD Primary Care Provider [phone] Allergies No known active allergies Medications cholecalciferol , vitamin D3, 1,000 unit Take by mouth. Active multivitamin (DAILY-ANA) tablet Take 1 Tablet by mouth daily. Active lidocaine (LIDODERM) 5 % Adhesive Patch, Medicated Apply 1 Patch to affected area every 24 hours. 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
--- OUTSIDE RECORDS SUMMARY | 2024-08-20 09:45 | XMS_ITS | Encounter Summary ---
Author Organization [facility] Address [address] [place] [address] Care Team Providers Care Amr Physician Name Role Phone Carl Garg MD Primary Care Provider [phone] Encounter Details Date Type Department Care Team (Late st Contact Info) Description 08/12/2000 Outpatient Historical [facility] Family Medicine [address] [place] [id number] RobertidLiliane munoz Social History Tobacco Use Types Packs/Day Years Used Date Smoking Tobacco: Never Assessed Comments Unknown Sex and Gender Information Value Date Recorded Sex Assigned at Not on file Legal Sex Female 4:41 AM 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
--- OUTSIDE RECORDS SUMMARY | 2024-08-20 09:45 | XMS_ITS | Encounter Summary ---
Author Organization [facility] Address [address] [place] [address] Care Team Providers Care Community Health Planning Director Name Role Phone Carl Garg MD Primary Care Provider [phone] Encounter Details Date Type Department Care Team (Late st Contact Info) Description 09/12/2001 Outpatient Historical [facility] & [facility] Family Medicine [address] [place] [address] [phone] Tate Everett DO NO ADDRESS ON FILE Social History Tobacco Use Types Packs/Day Years Used Date Smoking Tobacco: Never Assessed Comments Unknown Sex and Gender Information Value Date Recorded Sex Assigned at Not on file Legal Sex Female 4:41 AM SUPERVISOR Gender Identity Not on file Sexual Orientation Not on file documented as of this encounter Plan of Treatment Not on file documented as of this encounter Visit Diagnoses Not on filedocumented in this encounter Care Teams Community Health Planning Director Relationship Specialty Start Date End Date Carl Garg MD [facility] [place] [address] PCP - General Internal Medicine 02/23/18 documented as of this encounter
--- OUTSIDE RECORDS SUMMARY | 2024-08-20 09:45 | XMS_ITS | Encounter Summary ---
Author Organization [facility] Address [address] [place] [address] Care Team Providers Care Firesetter Name Role Phone Carl Garg MD Primary Care Provider [phone] Encounter Details Date Type Department Care Team (Late st Contact Info) Description 07/25/2002 Outpatient [facility] Family Medicine [address] [place] [address] [phone] Tate Everett DO NO ADDRESS ON FILE Social History Tobacco Use Types Packs/Day Years Used Date Smoking Tobacco: Never Assessed Comments Unknown Sex and Gender Information Value Date Recorded Sex Assigned at Not on file Legal Sex Female 4:41 AM 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
--- OUTSIDE RECORDS SUMMARY | 2024-08-20 09:45 | XMS_ITS | Encounter Summary ---
Author Organization [facility] Address [address] [place] [address] Care Team Providers Care Corn Sheller Operator Name Role Phone Carl Garg MD Primary Care Provider [phone] Encounter Details Date Type Department Care Team (Late st Contact Info) Description 04/19/2002 [facility] Family Medicine [address] [place] [address] [phone] Tate Everett DO NO ADDRESS ON FILE Social History Tobacco Use Types Packs/Day Years Used Date Smoking Tobacco: Never Assessed Comments Unknown Sex and Gender Information Value Date Recorded Sex Assigned at Not on file Legal Sex Female 4:41 AM HEATER TENDER Gender Identity Not on file Sexual Orientation Not on file documented as of this encounter Plan of Treatment Not on file documented as of this encounter Visit Diagnoses Not on filedocumented in this encounter Care Teams Corn Sheller Operator Relationship Specialty Start Date End Date Carl Garg MD [facility] [email or web address] [address] PCP - General Internal Medicine 02/23/18 documented as of this encounter
--- OUTSIDE RECORDS SUMMARY | 2024-08-20 09:46 | XMS_ITS | Referral Summary ---
Author Organization [facility] Address [address] [place] [address] Care Team Providers Care Loan Funder Name Role Phone Neri STEVENS MD, Gregory Amor Unavailable [phone] Anand Rao MD Unavailable [phone] Keanu Ma MD Primary Care Provider [phone] Allergies No known active allergies Medications ascorbic [...] (10/25/2017): Added automatically from request for surgery [id number] Chronic left shoulder pain 05/23/2017 Immunizations Immunization [...] on file Legal Sex Female 8:06 AM ENTERPRISE MOBILITY ARCHITECT Gender Identity Not on file Sexual Orientation Not on file Last Filed Vital Signs Vital Sign Reading Time Taken Comments Blood Pressure 112/68 10/23/2020 1:06 PM CDT Pulse 79 10/23/2020 1:06 PM CDT Temperature 36.8 C (98.3 F) 01/28/2022 4:29 PM ENTERPRISE MOBILITY ARCHITECT Respiratory Rate 19 11/07/2017 5:45 PM CDT Oxygen Saturation 94% 11/07/2017 5:45 PM CDT Inhaled Oxygen Concentration - - Weight 54.4 kg (120 lb) 01/28/2022 4:29 PM ENTERPRISE MOBILITY ARCHITECT Height 162.6 cm (5' 4) 10/23/2020 1:06 PM CDT Body Mass Index 20.6 10/23/2020 1:06 PM CDT Plan of Treatment Not on file Insurance [id number] [place] [address] [facility] MEDICARE ADVANTAGE Care Teams Loan Funder Relationship Specialty Start Date End Date Keanu Ma MD [address] INTERNAL MEDICINE [place], [place] [id number] PCP - General Internal Medicine 11/24/20 Gregory He III, MD Referring Physician Sports Medicine 07/03/17 Anand Rao MD [address] [place] [address] Referring Physician Orthopedic Surgery 09/09/17
--- OUTSIDE RECORDS SUMMARY | 2024-08-20 09:46 | XMS_ITS | Clinical Summary ---
Author Organization [facility] [employer] Address [address] [place] [address] Care Team Providers Care Felt Coverer Name Role Phone Ilana Almaraz MD Primary Care Provide r Source Comments [facility] [employer],non-owned Affiliates and Associated Physician Practices is amultiple site organization consisting of ambulatory clinics and hospital sitesin [place], [place], [place] and [place]. This disclosure is being madepursuant to the Care Everywhere program and may not contain all information available regarding this patient. Last updated 17.[facility] [employer] Allergies No known active allergies Medications * [...] TABS Take 1 tablet by mouth Active [place]-3 Fatty Acids (FISH OIL) 500 MG capsule [...] on file Legal Sex Female 5:47 AM BACK END ENGINEER Gender Identity Not on file Sexual [...] topic Insurance [employer] Care Teams Felt Coverer Relationship Specialty Start Date End Date Ilana Almaraz MD PCP - General Family Medicine 07/13/17
--- OUTSIDE RECORDS SUMMARY | 2024-08-20 09:46 | XMS_ITS | Clinical Summary ---
Author Organization [facility] Address [address] [place] [address] Care Team Providers Care Health And Wellness Coordinator Name Role Phone Neri STEVENS MD, Gregory Amor Unavailable [phone] Anand Rao MD Unavailable [phone] Keanu Ma MD Primary Care Provider [phone] Allergies No known active allergies Medications ascorbic [...] (10/25/2017): Added automatically from request for surgery [id number] Chronic left shoulder pain 05/23/2017 Immunizations Immunization [...] knee - torn meniscus/ACL, clavicle Fractures Headache [place] syndrome Osteoporosis GERD (gastroesophageal reflux disease) Anxiety [...] on file Legal Sex Female 8:06 AM SEWER LINE PHOTO INSPECTOR Gender Identity Not on file Sexual Orientation Not on file Obstetrics History Last Filed Vital Signs Vital Sign Reading Time Taken Comments Blood Pressure 112/68 10/23/2020 1:06 PM CDT Pulse 79 10/23/2020 1:06 PM CDT Temperature 36.8 C (98.3 F) 01/28/2022 4:29 PM SEWER LINE PHOTO INSPECTOR Respiratory Rate 19 11/07/2017 5:45 PM CDT Oxygen Saturation 94% 11/07/2017 5:45 PM CDT Inhaled Oxygen Concentration - - Weight 54.4 kg (120 lb) 01/28/2022 4:29 PM SEWER LINE PHOTO INSPECTOR Height 162.6 cm (5' 4) 10/23/2020 1:06 [...] Insurance MEDICARE ADVANTAGE MEDICARE ADVANTAGE Care Teams Health And Wellness Coordinator Relationship Specialty Start Date End Date Keanu Ma MD [address] [place] [address] PCP - General Internal Medicine 11/24/20 Gregory He III, MD Referring Physician Sports Medicine 07/03/17 Anand Rao MD [address] [place] [address] Referring Physician Orthopedic Surgery 09/09/17
--- OUTSIDE RECORDS SUMMARY | 2024-08-20 09:46 | XMS_ITS | Encounter Summary ---
Author Organization [facility] Address [address] [place] [address] Care Team Providers Care Opto Mechanical Technician Name Role Phone Carl Garg MD Primary Care Provider [phone] Encounter Details Date Type Department Care Team (Late st Contact Info) Description 07/09/1998 Outpatient Historical [facility] Family Medicine [address] [place] [address] [phone] Tate Everett DO NO ADDRESS ON FILE Social History Tobacco Use Types Packs/Day Years Used Date Smoking Tobacco: Never Assessed Comments Unknown Sex and Gender Information Value Date Recorded Sex Assigned at Not on file Legal Sex Female 4: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 [place] [place] [address] PCP - General Internal Medicine 02/23/18 documented as of this encounter
--- OUTSIDE RECORDS SUMMARY | 2024-08-20 09:46 | XMS_ITS | Encounter Summary ---
Author Organization [facility] Address [address] [place] [address] Care Team Providers Care Balance Screwhead Polisher Name Role Phone Carl Garg MD Primary Care Provider [phone] Encounter Details Date Type Department Care Team (Late st Contact Info) Description 05/09/2000 [facility] Family Medicine [address] [place] [address] [phone] Tate Everett DO NO ADDRESS ON FILE Social History Tobacco Use Types Packs/Day Years Used Date Smoking Tobacco: Never Assessed Comments Unknown Sex and Gender Information Value Date Recorded Sex Assigned at Not on file Legal Sex Female 4:41 AM CARDIOLOGY PHYSICIAN ASSISTANT Gender Identity Not on file Sexual Orientation Not on file documented as of this encounter Plan of Treatment Not on file documented as of this encounter Visit Diagnoses Not on filedocumented in this encounter Care Teams Balance Screwhead Polisher Relationship Specialty Start Date End Date Carl Garg MD [facility] [place] [address] PCP - General Internal Medicine 02/23/18 documented as of this encounter
--- OUTSIDE RECORDS SUMMARY | 2024-08-20 09:46 | XMS_ITS | Encounter Summary ---
Author Organization [facility] Address [address] [place] [address] Care Team Providers Care Blending Machine Operator Name Role Phone Carl Garg MD Primary Care Provider Encounter Details Date Type Department Care Team (Late st Contact Info) Description 04/21/[address] [facility] Family Medicine [address] [place] [address] [phone] Tate Everett DO NO ADDRESS ON FILE Social History Tobacco Use Types Packs/Day Years Used Date Smoking Tobacco: Never Assessed Comments Unknown Sex and Gender Information Value Date Recorded Sex Assigned at Not on file Legal Sex Female 4: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
--- OUTSIDE RECORDS SUMMARY | 2024-08-20 09:46 | XMS_ITS | Encounter Summary ---
Author Organization [facility] Address [address] [place] [address] Care Team Providers Care Riding Silks Custodian Name Role Phone Carl Garg MD Primary Care Provider [phone] Encounter Details Date Type Department Care Team (Late st Contact Info) Description 09/11/1998 Outpatient Historical [facility] Family Medicine [address] [place] [address] [phone] Tate Everett DO NO ADDRESS ON FILE Social History Tobacco Use Types Packs/Day Years Used Date Smoking Tobacco: Never Assessed Comments Unknown Sex and Gender Information Value Date Recorded Sex Assigned at Not on file Legal Sex Female 4:41 AM 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
--- OUTSIDE RECORDS SUMMARY | 2024-08-20 09:46 | XMS_ITS | Encounter Summary ---
Author Organization [facility] Address 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
--- OUTSIDE RECORDS SUMMARY | 2024-08-20 09:46 | XMS_ITS | Encounter Summary ---
Author Organization [facility] Address [address] [place] [address] Care Team Providers Care Bereavement Program Coordinator Name Role Phone Carl Garg MD Primary Care Provider Encounter Details Date Type Department Care Team (Late st Contact Info) Description 10/26/2002 Outpatient Historical [facility] Family Medicine [address] [place] [address] [phone] Tate Everett DO NO ADDRESS ON FILE Social History Tobacco Use Types Packs/Day Years Used Date Smoking Tobacco: Never Assessed Comments Unknown Sex and Gender Information Value Date Recorded Sex Assigned at Not on file 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
--- OUTSIDE RECORDS SUMMARY | 2024-08-20 09:46 | XMS_ITS | Encounter Summary ---
Author Organization [facility] Address [address] [place] [address] Care Team Providers Care Banking Supervisor Name Role Phone Carl Garg MD Primary Care Provider [phone] Encounter Details Date Type Department Care Team (Late st Contact Info) Description 12/15/1998 [facility] Family Medicine [address] [place] [address] [phone] Tate Everett DO NO ADDRESS ON FILE Social History Tobacco Use Types Packs/Day Years Used Date Smoking Tobacco: Never Assessed Comments Unknown Sex and Gender Information Value Date Recorded Sex Assigned at Not on file 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
--- OUTSIDE RECORDS SUMMARY | 2024-08-20 09:46 | XMS_ITS | Encounter Summary ---
Author Organization [facility] Address [address] [place] [address] Care Team Providers Care Quill Cleaning Machine Operator Name Role Phone Carl Garg MD Primary Care Provider [phone] Encounter Details Date Type Department Care Team (Late st Contact Info) Description 12/13/2002 [facility] Family Medicine [address] [place] [address] [phone] Tate Everett DO NO ADDRESS ON FILE Social History Tobacco Use Types Packs/Day Years Used Date Smoking Tobacco: Never Assessed Comments Unknown Sex and Gender Information Value Date Recorded Sex Assigned at Not on file 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
--- OUTSIDE RECORDS SUMMARY | 2024-08-20 09:46 | XMS_ITS | Encounter Summary ---
Author Organization [facility] Address [address] [place] [address] Care Team Providers Care Communications Electrician Supervisor Name Role Phone Carl Garg MD Primary Care Provider [phone] Encounter Details Date Type Department Care Team (Late st Contact Info) Description 07/21/2000 [facility] Family Medicine [address] [place] [address] [phone] Tate Everett DO NO ADDRESS ON FILE Social History Tobacco Use Types Packs/Day Years Used Date Smoking Tobacco: Never Assessed Comments Unknown Sex and Gender Information Value Date Recorded Sex Assigned at Not on file 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 [address] PCP - General Internal Medicine 02/23/18 documented as of this encounter
--- OUTSIDE RECORDS SUMMARY | 2024-08-20 09:46 | XMS_ITS | Encounter Summary ---
Author Organization [facility] Address [address] [place] [address] Care Team Providers Care Center Medical Specialist Name Role Phone Carl Garg MD Primary Care Provider [phone] Encounter Details Date Type Department Care Team (Late st Contact Info) Description 04/02/1998 Outpatient Historical [facility] Family Medicine [address] [place] [address] [phone] Tate Everett DO NO ADDRESS ON FILE Social History Tobacco Use Types Packs/Day Years Used Date Smoking Tobacco: Never Assessed Comments Unknown Sex and Gender Information Value Date Recorded Sex Assigned at Not on file 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
--- OUTSIDE RECORDS SUMMARY | 2024-08-20 09:46 | XMS_ITS | Encounter Summary ---
Author Organization [facility] Address [address] [place] [address] Care Team Providers Care Trader Fixed Income Name Role Phone Carl Garg MD Primary Care Provider [phone] Encounter Details Date Type Department Care Team (Late st Contact Info) Description 06/03/1998 [facility]patient [facility] Family Medicine [address] [place] [address] [phone] Tate Everett DO NO ADDRESS ON FILE Social History Tobacco Use Types Packs/Day Years Used Date Smoking Tobacco: Never Assessed Comments Unknown Sex and Gender Information Value Date Recorded Sex Assigned at Not on file 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
--- NOTE | 2024-08-20 10:15 | ECG_ITS ---
Test Date: 2024-08-20 10:25:25 Measurements Intervals [place] Rate: 67 P: 78 ID: 140 QRS: 86 QRSD: 98 T: 36 QT: 370 QTc: 392 Interpretive Statements SINUS RHYTHM POSSIBLE LEFT ATRIAL ENLARGEMENT [-0.1mV P-WAVE IN V1/V2] POSSIBLE RIGHT VENTRICULAR CONDUCTION DELAY [RSR (QR) IN V1/V2] No previous ECG available for comparison Electronically Signed On 08-20-2024 22:18:29 CDT by Myesha Saravia M.D.
== END 2024-08-20 09:38 | disposition home or self-care (01) ==
LOC: ANHCARD 09:41
PROVIDERS: PCP Family Medicine; Visit Provider Podiatrist Foot & Ankle Surgery
DX: R94.31 Abnormal electrocardiogram [ECG] [EKG] (principal); M79.671 Pain in right foot
CPT/HCPCS: 93005

== ENCOUNTER 2024-12-03 13:42 | Emergency (ER) | payer MEDICARE, SELFPAY ==
--- NOTE | ~2024-12-03 | CT_ITS ---
EXAMINATION: CT abdomen pelvis wo con DATE: 12/03/2024 14:52 INDICATION: Right low back pain TECHNIQUE: Computed tomography (CT) of the abdomen and pelvis was performed without intravenous contrast. Automated exposure control and iterative reconstruction technique were employed. The dose-length product was 196.49 mGy-cm. 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 This may be related to several old healed posterolateral left rib fractures. Heart size is normal. Atherosclerotic coronary artery calcific location. No pericardial or pleural effusion. Liver, gallbladder, spleen, pancreas, bilateral adrenal glands and kidneys are normal. No urolithiasis or hydronephrosis. Bowels including the appendix are normal. Bladder is normal. The uterus is not identified and has likely been surgically resected. No free intraperitoneal gas or fluid. Mild thoracolumbar levocurvature with mild lumbar and moderate lower thoracic spondylosis with multilevel moderate to severe facet osteoarthritis. IMPRESSION: 1. No urolithiasis or acute intra-abdominal/pelvic process. Reviewed, dictated and finalized at location A.
[2024-12-03 13:44] VITALS: BP 136/65; PULSE 84; RESP 16; TEMP 36.4; O2SAT 99
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
[2024-12-03] MEDS: KETOROLAC 30 MG/ML VIAL (*BKC) IV PUSH (15:01)
[2024-12-03] MEDS: LIDOCAINE 5% PATCH 1 PATCH TRANSDERM (15:01)
[2024-12-03 15:09] LABS: Hematocrit 34.3 % (37.0-47.0); Hemoglobin 11.1 g/dL (12.0-15.0); Immature Granulocyte Percent A 0.4 % (0-0.5); Lymphocytes Absolute Auto 1.43 K/mm3 (0.9-3.2); Mean Corpuscular HGB Conc 32.4 g/dl (32-36); Mean Corpuscular Hemoglobin 29.0 pg (26-34); Mean Corpuscular Volume 89.6 fl (80-100); Nucleated Red Blood Cells Absolute Auto 0.000 K/mm3 (0.0-0.012); Nucleated Red Blood Cells Perc 0.0 % (0.0-0.2); Platelet Count Result 183 k/mm3 (150-375); Red Blood Count 3.83 M/mm3 (4.2-5.4); White Blood Count 10.8 K/mm3 (4.5-10.0)
[2024-12-03 15:25] LABS: Alanine Aminotransferase 17 U/L (6-35); Albumin Level 4.6 g/dL (3.5-5.1); Alkaline Phosphatase 51 U/L (38-126); Anion Gap 5 mmol/L (4-12); Aspartate Amino Transferase 30 U/L (14-36); Bilirubin,Total 0.3 mg/dL (0.2-1.3); Blood Urea Nitrogen 10 mg/dL (7-17); Calcium 9.9 mg/dL (8.4-10.2); Carbon Dioxide 30 mmol/L (22-30); Chloride 99 mmol/L (98-107); Estimated CRCL calculation 50 ml/min; Estimated Glomerular Filt Rate > 60; Glucose 110 mg/dL (65-110); Potassium 4.2 mmol/L (3.4-5.0); Sodium 134 mmol/L (137-145); Total Protein 7.6 g/dL (6.3-8.2)
--- OUTSIDE RECORDS SUMMARY | 2024-12-03 15:38 | XMS_ITS | Patient Health Record ---
Author Organization [facility] Address [address] [place] [address] Care Team Providers Care Drill Grinder Name Role Phone Ángel Davenport Unavailable [phone] Reason For Referral No Information Medications Medication SIG (Take, Route, Frequency, Duration) Notes Start Date End Date Status AFLURIA QUAD [id number] (PF) 60 MCG (15 MCG X 4)/0.5 ML IM SYRINGE *Reorder from [employer] for eRx and Interaction Alerts* 10/09/2018 Active DULoxetine HCl 60 MG Capsule Delayed Release Particles Oral 10/09/2018 Active DULoxetine HCl 30 MG Capsule Delayed Release Particles Oral 10/09/2018 Active Amphetamine-Dextroamp het ER 25 MG Capsule Extended Release 24 Hour Oral 10/09/2018 Active HYDROcodone-Acetamino phen 5-325 MG Tablet Oral 10/09/2018 Active Amphetamine-Dextroamp het ER 20 MG Capsule Extended Release 24 Hour Oral 10/09/2018 Active PEG 3350-KCl-Na Bicarb-NaCl 420 GM Solution Reconstituted Oral 10/09/2018 Active Social History Social History Additional Details Category Social Info Options Details Migrated Social History Migrated Social History Alcohol Intake: Occasional 12/18/2019,Tobacco Years: Former smoker 12/18/2019 Plan Of Treatment No Information Insurance Providers Payer Name Payer Address Payer Phone Subscriber Number Group Number Insured Name Patient Relationship to Insured Coverage Start Date Coverage End Date [place] [address] [place] [address] [id number] RICK TAI Self - patient is the insured Medical (General) History Surgical History Surgery Date(Month/Year) Hysterectomy/revise vagina (54918)
--- OUTSIDE RECORDS SUMMARY | 2024-12-03 15:38 | XMS_ITS | Clinical Summary ---
Author Organization [facility] Address [address] [place] [address] Care Team Providers Care Automation Qtp Tester Name Role Phone Carl Garg MD Primary Care Provider [phone] Allergies No known active allergies Medications cholecalciferol , vitamin D3, 1,000 unit Take by mouth. Active multivitamin (DAILY-ANA) tablet Take 1 Tablet by mouth daily. Active lidocaine (LIDODERM) 5 % Adhesive Patch, Medicated Apply 1 Patch to affected area every 24 hours. 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 Not on file Not on file Not [...] Flex Sig/CT Colonography Q 5 years 10/09/2008 RSV VACCINE (60+ or ) (1 - Risk 50-74 years 1-dose series) 10/09/2013 ZOSTER VACCINE (1 of 2) 10/09/2013 COLORECTAL SCREENING 01/23/2024 01/22/2014 Colorectal Cancer Screening 01/23/2024 INFLUENZA VACCINE (#1) 2024 9, 11/18/2017, 11/15/2015, Additional history exists DTAP/TDAP/TD VACCINES (2 - T d or Tdap) 09/04/2026 09/04/2016 Insurance BS BLUE ACCESS/TRUE BLUE PPO Care Teams Automation Qtp Tester Relationship Specialty Start Date End Date Carl Garg MD [address] [place] [address] PCP - General Internal Medicine 02/23/18
--- OUTSIDE RECORDS SUMMARY | 2024-12-03 15:39 | XMS_ITS | Encounter Summary ---
Author Organization [facility] Address [address] [place] [address] Care Team Providers Care Graphics Software Engineer Name Role Phone Carl Garg MD Primary Care Provider [phone] Encounter Details Date Type Department Care Team (Late st Contact Info) Description 05/09/2000 Outpatient [facility] Family Medicine [address] [place] [address] [phone] Tate Everett DO NO ADDRESS ON FILE Social History Tobacco Use Types Packs/Day Years Used Date Smoking Tobacco: Never Assessed Comments Unknown Sex and Gender Information Value Date Recorded Sex Assigned at Not on file Legal Sex Female 4:41 AM PORTER HEAD Gender Identity Not on file Sexual Orientation Not on file documented as of this encounter Plan of Treatment Not on file documented as of this encounter Visit Diagnoses Not on filedocumented in this encounter Care Teams Graphics Software Engineer Relationship Specialty Start Date End Date Carl Garg MD [facility] [place] [address] PCP - General Internal Medicine 02/23/18 documented as of this encounter
--- OUTSIDE RECORDS SUMMARY | 2024-12-03 15:39 | XMS_ITS | Encounter Summary ---
Author Organization [facility] Address [address] [place] [address] Care Team Providers Care Dental Billing Specialist Name Role Phone Unavailable Primary Care Provider Unavailabl e Prior Encounters Date Type Department Care Team Description 05/19/2023 Travel 05/19/2023 12:45 PM CDT Office Visit [facility] [address] [place] [address] Kacey Mcginnis DDS Plan of Treatment Not on file Procedures Procedure Name Priority Date/Time Associated Diagnosis Comments OS CONSULT Routine 05/19/2023 12:45 PM CDT Visit Diagnoses Not on file Insurance PPO
--- OUTSIDE RECORDS SUMMARY | 2024-12-03 15:39 | XMS_ITS | Encounter Summary ---
Author Organization [facility] Address [address] [place] [address] Care Team Providers Care River Captain Name Role Phone Carl Garg MD Primary Care Provider [phone] Encounter Details Date Type Department Care Team (Late st Contact Info) Description 07/25/2002 Outpatient [facility] Family Medicine [address] [place] [address] [phone] Tate Everett DO NO ADDRESS ON FILE Social History Tobacco Use Types Packs/Day Years Used Date Smoking Tobacco: Never Assessed Comments Unknown Sex and Gender Information Value Date Recorded Sex Assigned at Not on file Legal Sex Female 4:41 AM PERISHABLE FRUIT INSPECTOR Gender Identity Not on file Sexual Orientation Not on file documented as of this encounter Plan of Treatment Not on file documented as of this encounter Visit Diagnoses Not on filedocumented in this encounter Care Teams River Captain Relationship Specialty Start Date End Date Carl Garg MD [facility] [place] [address] [place] [address] PCP - General Internal Medicine 02/23/18 documented as of this encounter
--- OUTSIDE RECORDS SUMMARY | 2024-12-03 15:39 | XMS_ITS | Encounter Summary ---
Author Organization [facility] Address [address] [place] [address] Care Team Providers Care Press Bucker Name Role Phone Carl Garg MD Primary Care Provider [phone] Encounter Details Date Type Department Care Team (Late st Contact Info) Description 05/01/2001 Outpatient [facility] Family Medicine [address] [place] [address] [phone] Tate Everett DO NO ADDRESS ON FILE Social History Tobacco Use Types Packs/Day Years Used Date Smoking Tobacco: Never Assessed Comments Unknown Sex and Gender Information Value Date Recorded Sex Assigned at Not on file Legal Sex Female 4:41 AM WARE CARRIER Gender Identity Not on file Sexual Orientation Not on file documented as of this encounter Plan of Treatment Not on file documented as of this encounter Visit Diagnoses Not on filedocumented in this encounter Care Teams Press Bucker Relationship Specialty Start Date End Date Carl Garg MD [facility] [employer] [place] [address] PCP - General Internal Medicine 02/23/18 documented as of this encounter
--- OUTSIDE RECORDS SUMMARY | 2024-12-03 15:39 | XMS_ITS | Encounter Summary ---
Author Organization [facility] Address [address] [place] [address] Care Team Providers Care Air Reduction Equipment Operator Name Role Phone Carl Garg MD Primary Care Provider [phone] Encounter Details Date Type Department Care Team (Late st Contact Info) Description 04/02/1998 Outpatient Historical [facility] Family Medicine [address] [place] [address] [phone] Tate Everett DO NO ADDRESS ON FILE Social History Tobacco Use Types Packs/Day Years Used Date Smoking Tobacco: Never Assessed Comments Unknown Sex and Gender Information Value Date Recorded Sex Assigned at Not on file Legal Sex Female 4:41 AM VEHICLE RETURN ASSOCIATE Gender Identity Not on file Sexual Orientation Not on file documented as of this encounter Plan of Treatment Not on file documented as of this encounter Visit Diagnoses Not on filedocumented in this encounter Care Teams Air Reduction Equipment Operator Relationship Specialty Start Date End Date Carl Garg MD [facility] [place] [address] PCP - General Internal Medicine 02/23/18 documented as of this encounter
--- OUTSIDE RECORDS SUMMARY | 2024-12-03 15:39 | XMS_ITS | Encounter Summary ---
Author Organization [facility] Address [address] [place] [address] Care Team Providers Care Test Director Name Role Phone Carl Garg MD Primary Care Provider [phone] Encounter Details Date Type Department Care Team (Late st Contact Info) Description 09/25/1999 Outpatient Historical [facility] Family Medicine [address] [place] [address] [phone] Tate Everett DO NO ADDRESS ON FILE Social History Tobacco Use Types Packs/Day Years Used Date Smoking Tobacco: Never Assessed Comments Unknown Sex and Gender Information Value Date Recorded Sex Assigned at Not on file Legal Sex Female 4:41 AM CODING DIRECTOR Gender Identity Not on file Sexual Orientation Not on file documented as of this encounter Plan of Treatment Not on file documented as of this encounter Visit Diagnoses Not on filedocumented in this encounter Care Teams Test Director Relationship Specialty Start Date End Date Carl Garg MD [facility] [place] [address] PCP - General Internal Medicine 02/23/18 documented as of this encounter
--- OUTSIDE RECORDS SUMMARY | 2024-12-03 15:39 | XMS_ITS | Patient Health Record ---
Author Organization [facility] Address [address] [place] [address] Care Team Providers Care Cd Mixer Name Role Phone Adis Wynn Unavailable [phone] Reason For Referral No Information Medications Medication [...] W/U Status Risk Notes Problem Chronic pain (52694819) Other chronic pain (G89.29) Active confirmed Problem Chronic pain syndrome (875893136) Chronic pain syndrome (G89.4) Active confirmed Problem Shoulder joint pain (787670603) Pain in left shoulder (M25.512) Active confirmed Problem Thoracic radiculopathy (45127432) Radiculopathy, thoracic region (M54.14) Active confirmed Problem Neuralgia (47589938) Neuralgia and neuritis, unspecified (M79.2) Active confirmed Problem Muscle pain (35290516) Myalgia, other site (M79.18) Active confirmed 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
--- OUTSIDE RECORDS SUMMARY | 2024-12-03 15:39 | XMS_ITS | Encounter Summary ---
Author Organization [facility] Address [address] [place] [address] Care Team Providers Care Custom Shoe Designer And Maker Name Role Phone Carl Garg MD Primary Care Provider [phone] Encounter Details Date Type Department Care Team (Late st Contact Info) Description 06/03/1998 [facility] Family Medicine [address] [place] [address] [phone] Tate Everett DO NO ADDRESS ON FILE Social History Tobacco Use Types Packs/Day Years Used Date Smoking Tobacco: Never Assessed Comments Unknown Sex and Gender Information Value Date Recorded Sex Assigned at Not on file Legal Sex Female 4:41 AM NURSING SURGICAL SERVICES DIRECTOR Gender Identity Not on file Sexual Orientation Not on file documented as of this encounter Plan of Treatment Not on file documented as of this encounter Visit Diagnoses Not on filedocumented in this encounter Care Teams Custom Shoe Designer And Maker Relationship Specialty Start Date End Date Carl Garg MD [facility] [place] [address] PCP - General Internal Medicine 02/23/18 documented as of this encounter
--- OUTSIDE RECORDS SUMMARY | 2024-12-03 15:39 | XMS_ITS | Clinical Summary ---
Author Organization [facility] Address [address] [place] [address] Care Team Providers Care Rn Neonatal Name Role Phone Unavailable Primary Care Provider [...] 7:15 AM CDT Height 161.3 cm (5' 3.5) 07/30/2015 7:15 AM CDT Body Mass Index [...] COVID-19 Vaccine ( - 2023-2 5 season) 2024 Influenza Adult (#1) 2024 RSV Immunization or 60+ Years (1 - [...] CONVERSION Comment: Result Comment: Test Performed at: Team Apart [address] [place] [address] MATA THOMPSON DO,MPH 07/30/2015 7:37 AM CDT 07/30/2015 7:37 AM CDT Narrative [facility] TO EPIC CONVERSION - 07/31/2015 6:26 AM CDT Result Communication: Mail Results to Patient Nadia Guthrie NP LABORATORY Final Result [facility] TO EP[facility] CONVERSION from Last 3 Months or Most Recently Relevant to Health Maintenance
--- OUTSIDE RECORDS SUMMARY | 2024-12-03 15:39 | XMS_ITS | Encounter Summary ---
Author Organization [facility] Address [address] [place] [address] Care Team Providers Care Bag Presser Name Role Phone Carl Garg MD Primary Care Provider [phone] Encounter Details Date Type Department Care Team (Late st Contact Info) Description 04/21/1998 [facility]patient [facility] Family Medicine [address] [place] [address] [phone] Tate Everett DO NO ADDRESS ON FILE Social History Tobacco Use Types Packs/Day Years Used Date Smoking Tobacco: Never Assessed Comments Unknown Sex and Gender Information Value Date Recorded Sex Assigned at Not on file Legal Sex Female 4:41 AM ROUTE SPECIALIST Gender Identity Not on file Sexual Orientation Not on file documented as of this encounter Plan of Treatment Not on file documented as of this encounter Visit Diagnoses Not on filedocumented in this encounter Care Teams Bag Presser Relationship Specialty Start Date End Date Carl Garg MD [facility] [place] [address] PCP - General Internal Medicine 02/23/18 documented as of this encounter
--- OUTSIDE RECORDS SUMMARY | 2024-12-03 15:39 | XMS_ITS | Clinical Summary ---
Author Organization [facility] Address [address] [place] [address] Care Team Providers Care Wood Carver Hand Name Role Phone Ilana Almaraz MD Primary Care Provide r Source Comments [facility],non-owned Affiliates and Associated Physician Practices is amultiple site organization consisting of ambulatory clinics and hospital sitesin [place], [place], [place] and [place]. This disclosure is being madepursuant to the Care Everywhere program and may not contain all information available regarding this patient. Last updated 17.[facility] Allergies No known active allergies Medications * [...] TABS Take 1 tablet by mouth Active Waddington-3 Fatty Acids (FISH OIL) 500 MG capsule [...] on file Legal Sex Female 5:47 AM COLLAR SHAPER OPERATOR Gender Identity Not on file Sexual [...] 10/09/2013 ZOSTER VACCINE (1 of 2) 10/09/2013 DEPRESSION SCREENING 02/15/2024 COVID-19 VACCINE (1 - 2023-2 5 season) 2024 INFLUENZA VACCINE (#1) 2024 Respiratory Syncytial Virus (RSV) Vaccine Pt: [...] topic Insurance [employer] Care Teams Wood Carver Hand Relationship Specialty Start Date End Date Ilana Almaraz MD PCP - General Family Medicine 07/13/17
--- OUTSIDE RECORDS SUMMARY | 2024-12-03 15:39 | XMS_ITS | Encounter Summary ---
Author Organization [facility] Address [address] [place] [address] Care Team Providers Care Cooker Mechanic Name Role Phone Carl Garg MD Primary Care Provider [phone] Encounter Details Date Type Department Care Team (Late st Contact Info) Description 09/12/2001 Outpatient Historical [facility] Family Medicine [address] [place] [address] [phone] Tate Everett DO NO ADDRESS ON FILE Social History Tobacco Use Types Packs/Day Years Used Date Smoking Tobacco: Never Assessed Comments Unknown Sex and Gender Information Value Date Recorded Sex Assigned at Not on file Legal Sex Female 4:41 AM WIRE COMMUNICATIONS ENGINEER Gender Identity Not on file Sexual Orientation Not on file documented as of this encounter Plan of Treatment Not on file documented as of this encounter Visit Diagnoses Not on filedocumented in this encounter Care Teams Cooker Mechanic Relationship Specialty Start Date End Date Carl Garg MD [facility] [place] [address] PCP - General Internal Medicine 02/23/18 documented as of this encounter
--- OUTSIDE RECORDS SUMMARY | 2024-12-03 15:39 | XMS_ITS | Encounter Summary ---
Author Organization [facility] Address [address] [place] [address] Care Team Providers Care Transcriptionist Name Role Phone Carl Garg MD Primary Care Provider [phone] Encounter Details Date Type Department Care Team (Late st Contact Info) Description 07/09/1998 Outpatient Historical [facility] Family Medicine [address] [place] [address] [phone] Tate Everett DO NO ADDRESS ON FILE Social History Tobacco Use Types Packs/Day Years Used Date Smoking Tobacco: Never Assessed Comments Unknown Sex and Gender Information Value Date Recorded Sex Assigned at Not on file Legal Sex Female 4:41 AM STUDENT SUPPORT ADVISOR Gender Identity Not on file Sexual Orientation Not on file documented as of this encounter Plan of Treatment Not on file documented as of this encounter Visit Diagnoses Not on filedocumented in this encounter Care Teams Transcriptionist Relationship Specialty Start Date End Date Carl Garg MD [facility] [place] [address] PCP - General Internal Medicine 02/23/18 documented as of this encounter
--- OUTSIDE RECORDS SUMMARY | 2024-12-03 15:39 | XMS_ITS | Encounter Summary ---
Author Organization [facility] Address [address] [place] [address] Care Team Providers Care Knobber Name Role Phone Carl Garg MD Primary Care Provider [phone] Encounter Details Date Type Department Care Team (Late st Contact Info) Description 01/25/2002 [facility] Family Medicine [address] [place] [address] [phone] Tate Everett DO NO ADDRESS ON FILE Social History Tobacco Use Types Packs/Day Years Used Date Smoking Tobacco: Never Assessed Comments Unknown Sex and Gender Information Value Date Recorded Sex Assigned at Not on file Legal Sex Female 4:41 AM SEED LABORATORY TECHNICIAN Gender Identity Not on file Sexual Orientation Not on file documented as of this encounter Plan of Treatment Not on file documented as of this encounter Visit Diagnoses Not on filedocumented in this encounter Care Teams Knobber Relationship Specialty Start Date End Date Carl Garg MD [facility] [address] PCP - General Internal Medicine 02/23/18 documented as of this encounter
--- OUTSIDE RECORDS SUMMARY | 2024-12-03 15:39 | XMS_ITS | Encounter Summary ---
Author Organization [facility] Address [address] [place] [address] Care Team Providers Care Credit Counselor Name Role Phone Carl Garg MD Primary Care Provider [phone] Encounter Details Date Type Department Care Team (Late st Contact Info) Description 09/11/1998 Outpatient Historical [facility] Family Medicine [address] [place] [address] [phone] Tate Everett DO NO ADDRESS ON FILE Social History Tobacco Use Types Packs/Day Years Used Date Smoking Tobacco: Never Assessed Comments Unknown Sex and Gender Information Value Date Recorded Sex Assigned at Not on file Legal Sex Female 4:41 AM SUPERVISOR POST WAVE Gender Identity Not on file Sexual Orientation Not on file documented as of this encounter Plan of Treatment Not on file documented as of this encounter Visit Diagnoses Not on filedocumented in this encounter Care Teams Credit Counselor Relationship Specialty Start Date End Date Carl Garg MD [facility] [place] [place] [address] PCP - General Internal Medicine 02/23/18 documented as of this encounter
--- OUTSIDE RECORDS SUMMARY | 2024-12-03 15:39 | XMS_ITS | Patient Health Record ---
Author Organization Ángel Duff DO/ [facility] Address [address] [place] [address] Care Team Providers Care Ceramic Tiler Name Role Phone Ángel Duff Primary Care Provider [phone] Reason For Referral No Information Immunizations Vaccine Route Administration Date Status Comme nts Td (adult) Unknown 08/24/2010 Administered Plan Of Treatment No Information Insurance Providers Payer Name Payer Address Payer Phone Subscriber Number Group Number Insured Name Patient Relationship to Insured Coverage Start Date Coverage End Date Blue Cross Blue Shield [address] [place] [address] [id number] Clementine Escobar Self - patient is the insured
--- OUTSIDE RECORDS SUMMARY | 2024-12-03 15:39 | XMS_ITS | Clinical Summary ---
Author Organization [facility] Address [address] [place] [address] Care Team Providers Care Medical Van Driver Name Role Phone Unavailable Primary Care Provider [...] (05/19/2023): Added automatically from request for surgery [id number] Social History Tobacco Use Types Packs/Day Years [...]
--- OUTSIDE RECORDS SUMMARY | 2024-12-03 15:39 | XMS_ITS | Encounter Summary ---
Author Organization [facility] Address [address] [place] [address] Care Team Providers Care Toy Stuffer Name Role Phone Carl Garg MD Primary Care Provider [phone] Encounter Details Date Type Department Care Team (Late st Contact Info) Description 12/13/2002 Outpatient [facility] Family Medicine [address] [place] [address] [phone] Tate Everett DO NO ADDRESS ON FILE Social History Tobacco Use Types Packs/Day Years Used Date Smoking Tobacco: Never Assessed Comments Unknown Sex and Gender Information Value Date Recorded Sex Assigned at Not on file Legal Sex Female 4:41 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
--- OUTSIDE RECORDS SUMMARY | 2024-12-03 15:39 | XMS_ITS | Encounter Summary ---
Author Organization [facility] Address [address] [place] [address] Care Team Providers Care Truck Shop Supervisor Name Role Phone Carl Garg MD Primary Care Provider [phone] Encounter Details Date Type Department Care Team (Late st Contact Info) Description 07/21/2000 Outpatient [facility] Family Medicine [address] [place] [address] [phone] Tate Everett DO NO ADDRESS ON FILE Social History Tobacco Use Types Packs/Day Years Used Date Smoking Tobacco: Never Assessed Comments Unknown Sex and Gender Information Value Date Recorded Sex Assigned at Not on file Legal Sex Female 4:41 AM HYDRAULIC MODELING ENGINEER Gender Identity Not on file Sexual Orientation Not on file documented as of this encounter Plan of Treatment Not on file documented as of this encounter Visit Diagnoses Not on filedocumented in this encounter Care Teams Truck Shop Supervisor Relationship Specialty Start Date End Date Carl Garg MD [facility] [place] [address] PCP - General Internal Medicine 02/23/18 documented as of this encounter
--- OUTSIDE RECORDS SUMMARY | 2024-12-03 15:39 | XMS_ITS | Patient Health Record ---
Author Organization [facility] Address [address] [place] [address] Care Team Providers Care Artificial Marble Worker Name Role Phone Yuval Hess Primary Care Provider [phone] Reason For Referral No Information Medications Medication SIG (Take, Route, Fr equency, Duration) Notes Start Date End Date Status Ritalin 10 mg tablet 2tab(s) orally BID; Duration: 30 day(s) 05/11/2010 Active CeleXA 40 mg tablet 1 tab(s) orally once a day Active Immunizations Vaccine Route Administration Date Status Comme nts Influenza (split), 3 yrs and above IM Intramuscular 10/28/2009 Administered Immunization Gi nate by from source eCW:: contreras Social History Social History Additional Details Category Social Info Options Details Migrated Social History Migrated Social History (Alcohol:):yes (Children:): sons:2 daughters: (Drug use:):no (Marital Status:): (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 (Smoking:):no quit 6 wks ago Problems Problem Type SNOMED Code ICD Code Onset Dates Problem Status W/U Status Risk Notes Problem Attention deficit hyperactivity disorder, 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
--- OUTSIDE RECORDS SUMMARY | 2024-12-03 15:39 | XMS_ITS | Encounter Summary ---
Author Organization [facility] Address [address] [place] [address] Care Team Providers Care Chinese Medicine Practitioner Name Role Phone Carl Garg MD Primary Care Provider [phone] Encounter Details Date Type Department Care Team (Late st Contact Info) Description 08/12/2000 Outpatient Historical [facility] Family Medicine [address] [place] [phone] RobertgaLiliane munoz Social History Tobacco Use Types Packs/Day Years Used Date Smoking Tobacco: Never Assessed Comments Unknown Sex and Gender Information Value Date Recorded Sex Assigned at Not on file Legal Sex Female 4:41 AM FABRICATOR ARTIFICIAL BREAST Gender Identity Not on file Sexual Orientation Not on file documented as of this encounter Plan of Treatment Not on file documented as of this encounter Visit Diagnoses Not on filedocumented in this encounter Care Teams Chinese Medicine Practitioner Relationship Specialty Start Date End Date Carl Garg MD [facility] [place] [place] [address] PCP - General Internal Medicine 02/23/18 documented as of this encounter
--- OUTSIDE RECORDS SUMMARY | 2024-12-03 15:39 | XMS_ITS | Encounter Summary ---
Author Organization [facility] Address [address] [place] [address] Care Team Providers Care Civil Preparedness Officer Name Role Phone Carl Garg MD Primary Care Provider [phone] Encounter Details Date Type Department Care Team (Late st Contact Info) Description 04/19/2002 [facility]patient [facility] Family Medicine [address] [place] [address] [phone] Tate Everett DO NO ADDRESS ON FILE Social History Tobacco Use Types Packs/Day Years Used Date Smoking Tobacco: Never Assessed Comments Unknown Sex and Gender Information Value Date Recorded Sex Assigned at Not on file Legal Sex Female 4:41 AM ROADS SUPERINTENDENT Gender Identity Not on file Sexual Orientation Not on file documented as of this encounter Plan of Treatment Not on file documented as of this encounter Visit Diagnoses Not on filedocumented in this encounter Care Teams Civil Preparedness Officer Relationship Specialty Start Date End Date Carl Garg MD [facility] [place] [address] PCP - General Internal Medicine 02/23/18 documented as of this encounter
--- OUTSIDE RECORDS SUMMARY | 2024-12-03 15:39 | XMS_ITS | Encounter Summary ---
Author Organization [facility] Address [address] [place] [address] Care Team Providers Care Field Representative/Health Education Name Role Phone Carl Garg MD Primary Care Provider [phone] Encounter Details Date Type Department Care Team (Late st Contact Info) Description 10/26/2002 Outpatient Historical [facility] Family Medicine [address] [place] [address] [phone] Tate Everett DO NO ADDRESS ON FILE Social History Tobacco Use Types Packs/Day Years Used Date Smoking Tobacco: Never Assessed Comments Unknown Sex and Gender Information Value Date Recorded Sex Assigned at Not on file Legal Sex Female 4:41 AM 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 [address] PCP - General Internal Medicine 02/23/18 documented as of this encounter
--- OUTSIDE RECORDS SUMMARY | 2024-12-03 15:39 | XMS_ITS | Encounter Summary ---
Author Organization [facility] Address [address] [place] [address] Care Team Providers Care Ux Design Lead Name Role Phone Carl Garg MD Primary Care Provider [phone] Encounter Details Date Type Department Care Team (Late st Contact Info) Description 12/15/1998 [facility] Family Medicine [address] [place] [address] [phone] Tate Everett DO NO ADDRESS ON FILE Social History Tobacco Use Types Packs/Day Years Used Date Smoking Tobacco: Never Assessed Comments Unknown Sex and Gender Information Value Date Recorded Sex Assigned at Not on file 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
--- OUTSIDE RECORDS SUMMARY | 2024-12-03 15:40 | XMS_ITS | Clinical Summary ---
Author Organization [facility] Address [address] [place] [address] Care Team Providers Care Platform Builder Name Role Phone Neri STEVENS MD, Gregory Amor Unavailable [phone] Anand Rao MD Unavailable [phone] Keanu Ma MD Primary Care Provider [phone] Allergies No known active allergies Medications ascorbic [...] (10/25/2017): Added automatically from request for surgery [id number] Chronic left shoulder pain 05/23/2017 Immunizations Immunization [...] knee - torn meniscus/ACL, clavicle Fractures Headache Clint syndrome Osteoporosis GERD (gastroesophageal reflux disease) Anxiety [...] on file Legal Sex Female 8:06 AM AD TERMINAL MAKEUP OPERATOR Gender Identity Not on file Sexual Orientation Not on file Obstetrics History Last Filed Vital Signs Vital Sign Reading Time Taken Comments Blood Pressure 112/68 10/23/2020 1:06 PM CDT Pulse 79 10/23/2020 1:06 PM CDT Temperature 36.8 C (98.3 F) 01/28/2022 4:29 PM AD TERMINAL MAKEUP OPERATOR Respiratory Rate 19 11/07/2017 5:45 PM CDT Oxygen Saturation 94% 11/07/2017 5:45 PM CDT Inhaled Oxygen Concentration - - Weight 54.4 kg (120 lb) 01/28/2022 4:29 PM AD TERMINAL MAKEUP OPERATOR Height 162.6 cm (5' 4) 10/23/2020 1:06 [...] Insurance MEDICARE ADVANTAGE MEDICARE ADVANTAGE Care Teams Platform Builder Relationship Specialty Start Date End Date Keanu Ma MD [address] [place] [address] PCP - General Internal Medicine 11/24/20 Gregory He III, MD Referring Physician Sports Medicine 07/03/17 Anand Rao MD [address] [place] [address] Referring Physician Orthopedic Surgery 09/09/17
[2024-12-03 15:44] LABS: Add Urine Microscopic? YES; Appearance Urine Cloudy (Clear); Glucose Urine UA Negative (Negative); Leukocyte Esterase Ur Trace LEU/UL (Negative); Need Manual Microscopic Reviewed; Nitrate Urine Negative (Negative); Specific Grav Ur 1.035 (1.001-1.035)
[2024-12-03] MEDS: ONDANSETRON INJ 4 MG/2 ML VIAL IV PUSH (15:54)
[2024-12-03 15:55] VITALS: BP 146/92; PULSE 78; RESP 18; O2SAT 97
--- OUTSIDE RECORDS SUMMARY | 2024-12-03 18:04 | XMS_ITS | Encounter Summary ---
Author Organization [facility] Address [address] [place] [address] Care Team Providers Care Instant Potato Processing Supervisor Name Role Phone Carl Garg MD Primary Care Provider [phone] Encounter Details Date Type Department Care Team (Late st Contact Info) Description 09/12/2001 Outpatient Historical [facility] Family Medicine [address] [place] [address] [phone] Tate Everett DO NO ADDRESS ON FILE Social History Tobacco Use Types Packs/Day Years Used Date Smoking Tobacco: Never Assessed Comments Unknown Sex and Gender Information Value Date Recorded Sex Assigned at Not on file 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
--- OUTSIDE RECORDS SUMMARY | 2024-12-03 18:04 | XMS_ITS | Clinical Summary ---
Author Organization [facility] Address [address] [place] [address] Care Team Providers Care Faith Healer Name Role Phone Unavailable Primary Care Provider [...] (05/19/2023): Added automatically from request for surgery [id number] Social History Tobacco Use Types Packs/Day Years [...]
--- OUTSIDE RECORDS SUMMARY | 2024-12-03 18:04 | XMS_ITS | Encounter Summary ---
Author Organization [facility] Address [address] [place] [address] Care Team Providers Care Assembler Small Products Name Role Phone Carl Garg MD Primary Care Provider [phone] Encounter Details Date Type Department Care Team (Late st Contact Info) Description 04/19/2002 [facility] Family Medicine [address] [place] [address] [phone] Tate Everett DO NO ADDRESS ON FILE Social History Tobacco Use Types Packs/Day Years Used Date Smoking Tobacco: Never Assessed Comments Unknown Sex and Gender Information Value Date Recorded Sex Assigned at Not on file Legal Sex Female 4:41 AM HOG COUNTER Gender Identity Not on file Sexual Orientation Not on file documented as of this encounter Plan of Treatment Not on file documented as of this encounter Visit Diagnoses Not on filedocumented in this encounter Care Teams Assembler Small Products Relationship Specialty Start Date End Date Carl Garg MD [facility] [place] [address] PCP - General Internal Medicine 02/23/18 documented as of this encounter
--- OUTSIDE RECORDS SUMMARY | 2024-12-03 18:04 | XMS_ITS | Encounter Summary ---
Author Organization [facility] Address [address] [place] [address] Care Team Providers Care Railroad Firer/Fireman Name Role Phone Carl Garg MD Primary Care Provider [phone] Encounter Details Date Type Department Care Team (Late st Contact Info) Description 05/01/2001 [facility] [address] [place] [address] [phone] Tate Everett DO NO ADDRESS ON FILE Social History Tobacco Use Types Packs/Day Years Used Date Smoking Tobacco: Never Assessed Comments Unknown Sex and Gender Information Value Date Recorded Sex Assigned at Not on file Legal Sex Female 4:41 AM SAMPLE WASHER Gender Identity Not on file Sexual Orientation Not on file documented as of this encounter Plan of Treatment Not on file documented as of this encounter Visit Diagnoses Not on filedocumented in this encounter Care Teams Railroad Firer/Fireman Relationship Specialty Start Date End Date Carl Garg MD [facility] [place] [address] PCP - General Internal Medicine 02/23/18 documented as of this encounter
--- OUTSIDE RECORDS SUMMARY | 2024-12-03 18:04 | XMS_ITS | Clinical Summary ---
Author Organization [facility] Address [address] [place] [address] Care Team Providers Care It Business Analyst Name Role Phone Carl Garg MD Primary Care Provider [phone] Allergies No known active allergies Medications cholecalciferol , vitamin D3, 1,000 unit Take by mouth. Active multivitamin (DAILY-ANA) tablet Take 1 Tablet by mouth daily. Active lidocaine (LIDODERM) 5 % Adhesive Patch, Medicated Apply 1 Patch to affected area every 24 hours. 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
--- OUTSIDE RECORDS SUMMARY | 2024-12-03 18:04 | XMS_ITS | Encounter Summary ---
Author Organization [facility] Address [address] [place] [address] Care Team Providers Care Pay Station Department Manager Name Role Phone Carl Garg MD Primary Care Provider Encounter Details Date Type Department Care Team (Late st Contact Info) Description 07/25/2002 Outpatient Historical [facility] Family Medicine [address] [place] [address] [phone] Tate Everett DO NO ADDRESS ON FILE Social History Tobacco Use Types Packs/Day Years Used Date Smoking Tobacco: Never Assessed Comments Unknown Sex and Gender Information Value Date Recorded Sex Assigned at Not on file Legal Sex Female 4:41 AM PROTEOMICS SCIENTIST Gender Identity Not on file Sexual Orientation Not on file documented as of this encounter Plan of Treatment Not on file documented as of this encounter Visit Diagnoses Not on filedocumented in this encounter Care Teams Pay Station Department Manager Relationship Specialty Start Date End Date Carl Garg MD [facility] [place] [address] PCP - General Internal Medicine 02/23/18 documented as of this encounter
--- OUTSIDE RECORDS SUMMARY | 2024-12-03 18:04 | XMS_ITS | Encounter Summary ---
Author Organization [facility] Address [address] [place] [address] Care Team Providers Care Aviation Electronics Technician Name Role Phone Carl Garg MD Primary Care Provider [phone] Encounter Details Date Type Department Care Team (Late st Contact Info) Description 01/25/2002 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
--- OUTSIDE RECORDS SUMMARY | 2024-12-03 18:04 | XMS_ITS | Encounter Summary ---
Author Organization [facility] Address [address] [place] [address] Care Team Providers Care Poultry Dressing Worker Name Role Phone Carl Garg MD Primary Care Provider [phone] Encounter Details Date Type Department Care Team (Late st Contact Info) Description 08/12/2000 Outpatient Historical [facility] Family Medicine [address] [place] [phone] RobertakLiliane munoz Social History Tobacco Use Types Packs/Day Years Used Date Smoking Tobacco: Never Assessed Comments Unknown Sex and Gender Information Value Date Recorded Sex Assigned at Not on file Legal Sex Female 4:41 AM INDUSTRIAL ECOLOGIST Gender Identity Not on file Sexual Orientation Not on file documented as of this encounter Plan of Treatment Not on file documented as of this encounter Visit Diagnoses Not on filedocumented in this encounter Care Teams Poultry Dressing Worker Relationship Specialty Start Date End Date Carl Garg MD [facility] [place] [address] PCP - General Internal Medicine 02/23/18 documented as of this encounter
--- OUTSIDE RECORDS SUMMARY | 2024-12-03 18:04 | XMS_ITS | Encounter Summary ---
Author Organization [facility] Address [address] [place] [address] Care Team Providers Care Manager Of Procurement Name Role Phone Unavailable Primary Care Provider Unavailabl e Prior Encounters Date Type Department Care Team Description 05/19/2023 Travel 05/19/2023 12:45 PM CDT Office Visit [facility] [address] [place] [address] Kacey Mcginnis DDS Plan of Treatment Not on file Procedures Procedure Name Priority Date/Time Associated Diagnosis Comments OS CONSULT Routine 05/19/2023 12:45 PM CDT Visit Diagnoses Not on file Insurance PPO
--- OUTSIDE RECORDS SUMMARY | 2024-12-03 18:05 | XMS_ITS | Encounter Summary ---
Author Organization [facility] Address [address] [place] [address] Care Team Providers Care Hone Operator Name Role Phone Carl Garg MD Primary Care Provider [phone] Encounter Details Date Type Department Care Team (Late st Contact Info) Description 12/15/1998 [facility] Medicine [address] [place] [address] [phone] Tate Everett DO NO ADDRESS ON FILE Social History Tobacco Use Types Packs/Day Years Used Date Smoking Tobacco: Never Assessed Comments Unknown Sex and Gender Information Value Date Recorded Sex Assigned at Not on file Legal Sex Female 4:41 AM AIR SUPPORT OPERATIONS OPERATOR Gender Identity Not on file Sexual Orientation Not on file documented as of this encounter Plan of Treatment Not on file documented as of this encounter Visit Diagnoses Not on filedocumented in this encounter Care Teams Hone Operator Relationship Specialty Start Date End Date Carl Garg MD [facility] [place] [address] PCP - General Internal Medicine 02/23/18 documented as of this encounter
--- OUTSIDE RECORDS SUMMARY | 2024-12-03 18:05 | XMS_ITS | Encounter Summary ---
Author Organization [facility] Address [address] [place] [address] Care Team Providers Care Tissue Technician Name Role Phone Carl Garg MD Primary Care Provider [phone] Encounter Details Date Type Department Care Team (Late st Contact Info) Description 05/09/2000 [facility] Family Medicine [address] [place] [address] [phone] Tate Everett DO NO ADDRESS ON FILE Social History Tobacco Use Types Packs/Day Years Used Date Smoking Tobacco: Never Assessed Comments Unknown Sex and Gender Information Value Date Recorded Sex Assigned at Not on file Legal Sex Female 4:41 AM MOTOR LODGE CLERK Gender Identity Not on file Sexual Orientation Not on file documented as of this encounter Plan of Treatment Not on file documented as of this encounter Visit Diagnoses Not on filedocumented in this encounter Care Teams Tissue Technician Relationship Specialty Start Date End Date Carl Garg MD [facility] [place] [address] PCP - General Internal Medicine 02/23/18 documented as of this encounter
--- OUTSIDE RECORDS SUMMARY | 2024-12-03 18:05 | XMS_ITS | Encounter Summary ---
Author Organization [facility] Address [address] [place] [address] Care Team Providers Care Building Dismantler Name Role Phone Carl Garg MD Primary Care Provider [phone] Encounter Details Date Type Department Care Team (Late st Contact Info) Description 09/25/1999 Outpatient Historical [facility] [address] [place] [address] [phone] Tate Everett DO NO ADDRESS ON FILE Social History Tobacco Use Types Packs/Day Years Used Date Smoking Tobacco: Never Assessed Comments Unknown Sex and Gender Information Value Date Recorded Sex Assigned at Not on file Legal Sex Female 4:41 AM MERCHANDISE COMPLAINT ADJUSTER Gender Identity Not on file Sexual Orientation Not on file documented as of this encounter Plan of Treatment Not on file documented as of this encounter Visit Diagnoses Not on filedocumented in this encounter Care Teams Building Dismantler Relationship Specialty Start Date End Date Carl Garg MD [facility] [place] [address] PCP - General Internal Medicine 02/23/18 documented as of this encounter
--- OUTSIDE RECORDS SUMMARY | 2024-12-03 18:05 | XMS_ITS | Encounter Summary ---
Author Organization [facility] Address [address] [place] [address] Care Team Providers Care Miller Head Assistant Wet Process Name Role Phone Carl Garg MD Primary Care Provider [phone] Encounter Details Date Type Department Care Team (Late st Contact Info) Description 04/21/1998 Outpatient [facility] Family Medicine [address] [place] [address] [phone] Tate Everett DO NO ADDRESS ON FILE Social History Tobacco Use Types Packs/Day Years Used Date Smoking Tobacco: Never Assessed Comments Unknown Sex and Gender Information Value Date Recorded Sex Assigned at Not on file Legal Sex Female 4:41 AM INDUSTRIAL TECHNOLOGY EDUCATION TEACHER Gender Identity Not on file Sexual Orientation Not on file documented as of this encounter Plan of Treatment Not on file documented as of this encounter Visit Diagnoses Not on filedocumented in this encounter Care Teams Miller Head Assistant Wet Process Relationship Specialty Start Date End Date Carl Garg MD [facility] [place] [address] PCP - General Internal Medicine 02/23/18 documented as of this encounter
--- OUTSIDE RECORDS SUMMARY | 2024-12-03 18:05 | XMS_ITS | Clinical Summary ---
Author Organization [facility] [employer] Address [address] [place] [address] Care Team Providers Care Coding Auditor Name Role Phone Ilana Almaraz MD Primary Care Provide r Source Comments [facility] [employer],non-owned Affiliates and Associated Physician Practices is amultiple site organization consisting of ambulatory clinics and hospital sitesin [place], [place], [place] and [place]. This disclosure is being madepursuant to the Care Everywhere program and may not contain all information available regarding this patient. Last updated 17.[facility] [employer] Allergies No known active allergies Medications * [...] TABS Take 1 tablet by mouth Active [place]-3 Fatty Acids (FISH OIL) 500 MG capsule [...] on file Legal Sex Female 5:47 AM BEAUTY CONSULTANT Gender Identity Not on file Sexual [...] topic Insurance [employer] Care Teams Coding Auditor Relationship Specialty Start Date End Date Ilana Almaraz MD PCP - General Family Medicine 07/13/17
--- OUTSIDE RECORDS SUMMARY | 2024-12-03 18:05 | XMS_ITS | Encounter Summary ---
Author Organization [facility] Address [address] [place] [address] Care Team Providers Care Senior Administrator Support Name Role Phone Carl Garg MD Primary Care Provider [phone] Encounter Details Date Type Department Care Team (Late st Contact Info) Description 07/21/2000 [facility] Family Medicine [address] [place] [address] [phone] Tate Everett DO NO ADDRESS ON FILE Social History Tobacco Use Types Packs/Day Years Used Date Smoking Tobacco: Never Assessed Comments Unknown Sex and Gender Information Value Date Recorded Sex Assigned at Not on file Legal Sex Female 4:41 AM PEOPLESOFT FSCM DEVELOPER Gender Identity Not on file Sexual Orientation Not on file documented as of this encounter Plan of Treatment Not on file documented as of this encounter Visit Diagnoses Not on filedocumented in this encounter Care Teams Senior Administrator Support Relationship Specialty Start Date End Date Carl Garg MD [facility] [place] [address] PCP - General Internal Medicine 02/23/18 documented as of this encounter
--- OUTSIDE RECORDS SUMMARY | 2024-12-03 18:05 | XMS_ITS | Encounter Summary ---
Author Organization [facility] Address [address] [place] [address] Care Team Providers Care Fire Control Mechanic Name Role Phone Carl Garg MD Primary Care Provider [phone] Encounter Details Date Type Department Care Team (Late st Contact Info) Description 04/02/1998 Outpatient Historical [facility] Family Medicine [address] [place] [address] [phone] Tate Everett DO NO ADDRESS ON FILE Social History Tobacco Use Types Packs/Day Years Used Date Smoking Tobacco: Never Assessed Comments Unknown Sex and Gender Information Value Date Recorded Sex Assigned at Not on file Legal Sex Female 4:41 AM MAIL OFFICER Gender Identity Not on file Sexual Orientation Not on file documented as of this encounter Plan of Treatment Not on file documented as of this encounter Visit Diagnoses Not on filedocumented in this encounter Care Teams Fire Control Mechanic Relationship Specialty Start Date End Date Carl Garg MD [facility] [place] [address] PCP - General Internal Medicine 02/23/18 documented as of this encounter
--- OUTSIDE RECORDS SUMMARY | 2024-12-03 18:05 | XMS_ITS | Encounter Summary ---
Author Organization [facility] Address [address] [place] [address] Care Team Providers Care Welding Pantograph Operator Name Role Phone Carl Garg MD Primary Care Provider [phone] Encounter Details Date Type Department Care Team (Late st Contact Info) Description 07/09/1998 Outpatient Historical [facility] Medicine [address] [place] [address] [phone] Tate Everett DO NO ADDRESS ON FILE Social History Tobacco Use Types Packs/Day Years Used Date Smoking Tobacco: Never Assessed Comments Unknown Sex and Gender Information Value Date Recorded Sex Assigned at Not on file Legal Sex Female 4:41 AM MOVER Gender Identity Not on file Sexual Orientation Not on file documented as of this encounter Plan of Treatment Not on file documented as of this encounter Visit Diagnoses Not on filedocumented in this encounter Care Teams Welding Pantograph Operator Relationship Specialty Start Date End Date Carl Garg MD [facility] [email or web address] [address] PCP - General Internal Medicine 02/23/18 documented as of this encounter
--- OUTSIDE RECORDS SUMMARY | 2024-12-03 18:05 | XMS_ITS | Encounter Summary ---
Author Organization [facility] Address [address] [place] [address] Care Team Providers Care Fiscal Accounting Clerk Name Role Phone Carl Garg MD Primary Care Provider [phone] Encounter Details Date Type Department Care Team (Late st Contact Info) Description 09/11/1998 Outpatient Historical [facility] Family Medicine [address] [place] [address] [phone] Tate Everett DO NO ADDRESS ON FILE Social History Tobacco Use Types Packs/Day Years Used Date Smoking Tobacco: Never Assessed Comments Unknown Sex and Gender Information Value Date Recorded Sex Assigned at Not on file Legal Sex Female 4:41 AM WEIGHING STATION OPERATOR Gender Identity Not on file Sexual Orientation Not on file documented as of this encounter Plan of Treatment Not on file documented as of this encounter Visit Diagnoses Not on filedocumented in this encounter Care Teams Fiscal Accounting Clerk Relationship Specialty Start Date End Date Carl Garg MD [facility] [address] PCP - General Internal Medicine 02/23/18 documented as of this encounter
--- OUTSIDE RECORDS SUMMARY | 2024-12-03 18:05 | XMS_ITS | Encounter Summary ---
Author Organization [facility] Address [address] [place] [address] Care Team Providers Care Drier Feeder Name Role Phone Carl Garg MD Primary Care Provider [phone] Encounter Details Date Type Department Care Team (Late st Contact Info) Description 06/03/[address] [facility]patient [facility] Family Medicine [address] [place] [address] [phone] Tate Everett DO NO ADDRESS ON FILE Social History Tobacco Use Types Packs/Day Years Used Date Smoking Tobacco: Never Assessed Comments Unknown Sex and Gender Information Value Date Recorded Sex Assigned at Not on file Legal Sex Female 4:41 AM ENGINEER REMOTE CONTROL DIESEL Gender Identity Not on file Sexual Orientation Not on file documented as of this encounter Plan of Treatment Not on file documented as of this encounter Visit Diagnoses Not on filedocumented in this encounter Care Teams Drier Feeder Relationship Specialty Start Date End Date Carl Garg MD [facility] [place] [address] PCP - General Internal Medicine 02/23/18 documented as of this encounter
--- OUTSIDE RECORDS SUMMARY | 2024-12-03 18:05 | XMS_ITS | Encounter Summary ---
Author Organization [facility] Address [address] [place] [address] Care Team Providers Care Sales Coordinator Name Role Phone Carl Garg MD Primary Care Provider [phone] Encounter Details Date Type Department Care Team (Late st Contact Info) Description 12/13/2002 Outpatient [facility] Family Medicine [address] [place] [address] [phone] Tate Everett DO NO ADDRESS ON FILE Social History Tobacco Use Types Packs/Day Years Used Date Smoking Tobacco: Never Assessed Comments Unknown Sex and Gender Information Value Date Recorded Sex Assigned at Not on file 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
--- OUTSIDE RECORDS SUMMARY | 2024-12-03 18:05 | XMS_ITS | Encounter Summary ---
Author Organization [facility] Address [address] [place] [address] Care Team Providers Care Oceanographer Physical Name Role Phone Carl Garg MD Primary Care Provider [phone] Encounter Details Date Type Department Care Team (Late st Contact Info) Description 10/26/2002 Outpatient Historical [facility] Family Medicine [address] [place] [address] [phone] Tate Everett DO NO ADDRESS ON FILE Social History Tobacco Use Types Packs/Day Years Used Date Smoking Tobacco: Never Assessed Comments Unknown Sex and Gender Information Value Date Recorded Sex Assigned at Not on file 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
--- OUTSIDE RECORDS SUMMARY | 2024-12-03 18:05 | XMS_ITS | Clinical Summary ---
Author Organization [facility] Address [address] [place] [address] Care Team Providers Care Loan Reviewer Name Role Phone Unavailable Primary Care Provider [...] CONVERSION Comment: Result Comment: Test Performed at: [facility] [address] [place] [address] MATA THOMPSON DO,MPH 07/30/2015 7:37 AM CDT 07/30/2015 7:37 AM CDT Narrative [facility] TO EPIC CONVERSION - 07/31/2015 6:26 AM CDT Result Communication: Mail Results to Patient Nadia Guthrie NP LABORATORY Final Result [facility] TO EPIC CONVERSION from Last 3 Months or Most Recently Relevant to Health Maintenance
--- OUTSIDE RECORDS SUMMARY | 2024-12-03 18:06 | XMS_ITS | Clinical Summary ---
Author Organization [facility] Address [address] [place] [address] Care Team Providers Care Hot Roll Inspector Name Role Phone Neri STEVENS MD, Gregory Amor Unavailable [phone] Anand Rao MD Unavailable [phone] Keanu Ma MD Primary Care Provider [phone] Allergies No known active allergies Medications ascorbic [...] (10/25/2017): Added automatically from request for surgery [id number] Chronic left shoulder pain 05/23/2017 Immunizations Immunization [...] knee - torn meniscus/ACL, clavicle Fractures Headache [place] syndrome Osteoporosis GERD (gastroesophageal reflux disease) Anxiety [...] on file Legal Sex Female 8:06 AM [employer] Gender Identity Not on file Sexual Orientation Not on file Obstetrics History Last Filed Vital Signs Vital Sign Reading Time Taken Comments Blood Pressure 112/68 10/23/2020 1:06 PM CDT Pulse 79 10/23/2020 1:06 PM CDT Temperature 36.8 C (98.3 F) 01/28/2022 4:29 PM [employer] Respiratory Rate 19 11/07/2017 5:45 PM CDT Oxygen Saturation 94% 11/07/2017 5:45 PM CDT Inhaled Oxygen Concentration - - Weight 54.4 kg (120 lb) 01/28/2022 4:29 PM [employer] Height 162.6 cm (5' 4) 10/23/2020 1:06 [...] Insurance MEDICARE ADVANTAGE MEDICARE ADVANTAGE Care Teams Hot Roll Inspector Relationship Specialty Start Date End Date Keanu Ma MD [address] [place] [id number] PCP - General Internal Medicine 11/24/20 Gregory He III, MD Referring Physician Sports Medicine 07/03/17 Anand Rao MD [address] [place] [id number] Referring Physician Orthopedic Surgery 09/09/17
== END 2024-12-03 17:16 | disposition home or self-care (01) ==
PROVIDERS: Emergency Provider Student in an Organized Health Care Education/Training Program; PCP Family Medicine
DX: M54.50 Low back pain, unspecified (principal); F41.9 Anxiety disorder, unspecified; F32.A Depression, unspecified; E78.5 Hyperlipidemia, unspecified; G89.29 Other chronic pain; R82.998 Other abnormal findings in urine
CPT/HCPCS: 36415; 74176; 80053; 81001; 85025; 87086; 96374; 96375; 99284; A9270; J1885; J2405